=== PATIENT | male | born 1965 | race Caucasian/White ===

== ENCOUNTER → 2020-08-08 15:46 | Outpatient (BNVA) | payer OTHER, SELFPAY | PROVIDERS: PCP Internal Medicine; Referring Provider Internal Medicine; Visit Provider Internal Medicine | DX: Z76.89 Persons encountering health services in other specified circumstances (principal) ==

== ENCOUNTER 2020-09-28 14:10 | Outpatient (REF) | payer OTHER, SELFPAY ==
[2020-09-28 16:39] LABS: MANUAL DIFF FLAG NO
[2020-09-28 16:41] LABS: Basophils Percent Auto 0.8 % (0-2); Eosinophils Absolute Auto 0.1 X10*3/uL (0.0-0.4); Eosinophils Percent Auto 2.2 % (0-4); Hematocrit 47.8 % (42-52); Hemoglobin 16.7 g/dl (14.0-18.0); Imm Gran Abs Auto 0.03 X10*3/uL (0.00-0.03); Imm Gran Pct Auto 0.6 % (0.0-0.4); Lymphocytes Absolute Auto 1.9 X10*3/uL (1.2-4.9); Mean Corpuscular HGB Conc 34.9 g/dl (31.0-36.0); Mean Corpuscular Hemoglobin 33.9 pg (27.0-33.0); Mean Corpuscular Volume 97.2 fL (80-98); Monocytes Absolute Auto 0.6 X10*3/uL (0.1-1.2); Monocytes Percent Auto 11.7 % (2-11); Neutrophils Absolute Auto 2.4 X10*3/uL (2.0-8.3); Neutrophils Percent Auto 47.7 % (45-73); Platelet Count 156 X10*3/uL (160-400); Red Blood Count 4.92 X10*6/uL (4.60-5.80); Red Cell Distribution Width 12.6 % (11.0-16.0); White Blood Count 5.1 X10*3/uL (4.8-10.8)
[2020-09-28 17:07] LABS: Anion Gap 15 (12-20); Blood Urea Nitrogen 8 mg/dL (9-16); Carbon Dioxide 21 mmol/L (22-29); Chloride 105 mmol/L (96-108); Estimated Glomerular Filt Rate > 60; Glucose Random 81 mg/dL (60-115); Potassium 4.4 mmol/l (3.3-5.1); Sodium 137 mmol/L (135-145)
[2020-09-28 17:21] LABS: Alanine Aminotransferase 192 U/L (0-40); Albumin Level 4.5 g/dL (3.5-5.0); Alkaline Phosphatase 97 U/L (39-117); Anion Gap 17 (12-20); Aspartate Amino Transferase 135 U/L (5-37); Bilirubin Total 0.5 mg/dL (0.0-1.0); Blood Urea Nitrogen 8 mg/dL (9-16); Calcium 10.2 mg/dL (8.4-10.2); Carbon Dioxide 21 mmol/L (22-29); Chloride 106 mmol/L (96-108); Estimated Glomerular Filt Rate > 60; Glucose Random 83 mg/dL (60-115); Potassium 4.5 mmol/l (3.3-5.1); Sodium 139 mmol/L (135-145); Total Protein 7.6 g/dL (6.5-8.0)
[2020-09-28 17:24] LABS: SARS COV2 IgG Positive (Negative)
[2020-09-28 17:50] LABS: TSH reflex Free T4 1.29 mIU/mL (0.32-4.0)
[2020-09-28 18:24] LABS: Ferritin 86 ng/mL (20-250)
== END 2020-09-28 14:11 | disposition home or self-care (01) ==
LOC: HO.HMGCLDS 14:10
PROVIDERS: PCP Internal Medicine; Visit Provider Internal Medicine Medical Oncology
DX: D46.C Myelodysplastic syndrome with isolated del(5q) chromosomal abnormality (principal); D75.1 Secondary polycythemia; F17.200 Nicotine dependence, unspecified, uncomplicated; E83.119 Hemochromatosis, unspecified; E83.52 Hypercalcemia; I10 Essential (primary) hypertension; J44.9 Chronic obstructive pulmonary disease, unspecified; R79.89 Other specified abnormal findings of blood chemistry; F10.20 Alcohol dependence, uncomplicated
CPT/HCPCS: 36415; 80048; 80053; 82728; 84443; 85025; 86769

== ENCOUNTER 2020-10-02 17:43 | Outpatient (REF) | payer OTHER, SELFPAY | END 2020-10-02 17:44 | disposition home or self-care (01) | LOC: HO.LAB 17:43 | PROVIDERS: Visit Provider Internal Medicine | DX: Z20.828 Contact with and (suspected) exposure to other viral communicable diseases (principal) | CPT/HCPCS: C9803; U0003 ==

== ENCOUNTER 2020-11-16 15:47 | Outpatient (REF) | payer BC, SELFPAY ==
--- NOTE | 2020-11-16 17:09 | PFT_ITS ---
INDICATION: COPD. SPIROMETRY: The FEV1 to FVC 71% with an FEV1 of 3.5 L, which is 101% predicted, and an FVC of 4.91 L, which is 110% predicted. The maximum voluntary ventilation 84% predicted. LUNG VOLUMES: Total lung capacity 125% predicted and residual volume 161% predicted. DIFFUSION CAPACITY: DLCO 91% predicted. COMPARISONS: None available. INTERPRETATION: There appears to be a mild obstructive ventilatory defect. Did have some partial reversibility. The patient does have evidence of small airways disease. Maximum voluntary ventilation is within normal limits. Lung volumes do demonstrate significant hyperinflation and air trapping due to the obstructive airway disease. Diffusion capacity is within normal limits. Clinical correlation warranted. Darryl Mariee MD MR/MODL / [id number]
== END 2020-11-16 15:48 | disposition home or self-care (01) ==
LOC: HO.RESP 15:47
PROVIDERS: PCP Internal Medicine; Visit Provider Internal Medicine
DX: J44.9 Chronic obstructive pulmonary disease, unspecified (principal); F17.200 Nicotine dependence, unspecified, uncomplicated
CPT/HCPCS: 94060; 94727; 94729

== ENCOUNTER → 2020-12-11 12:45 | Outpatient (BNV) | payer BC, SELFPAY | PROVIDERS: Visit Provider Internal Medicine Medical Oncology | DX: D75.1 Secondary polycythemia (principal); R79.0 Abnormal level of blood mineral | CPT/HCPCS: 99213 ==

== ENCOUNTER 2021-01-07 10:36 | Day surgery (SDC) | payer BC, SELFPAY ==
[2021-01-07 11:01] VITALS: BMI 31.3
[2021-01-07 11:10] VITALS: BP 163/100; PULSE 88; RESP 20; TEMP 37.6; O2SAT 95
--- NOTE | 2021-01-07 11:37 | MHC.SHP ---
Pre-Procedural Eval Section B Chief Complaint: heartburn Relevant Family History (Specify if Yes): No Relevant Social History: Tobacco Use Present Medications: see Short Stay Collaborative assessment Medical History: Significant History (Alcoholism COPD (chronic obstructive pulmonary disease) Hemochromatosis Hypertension, essential LFT elevation Polycythemia Serum calcium elevated Smoker) History of Previous Operations: Relevant previous surgery/procedure and date(s) (hydrocele) Allergies: Allergies Allergy/AdvReac Type Severity Reaction Status Date / Time chlorthalidone AdvReac Severe stomach Verified 01/07/21 11:19 upset Review of Systems Sugical H&P ROS: Negative: Constitution, Cardiovascular, Respiratory, Neurological, Psychiatric, Hem-Onc, Allergic/Immunologic, Gastrointestinal, Genitourinary, Musculoskeletal, Integumentary, Endocrine and Eyes/Ears/Nose/Throat Exam Surgical H&P Exam: Normal: HEENT, Normal: Heart, Normal: Lungs, Normal: Extremities, Normal: Abdomen, Normal: Skin and Normal: Neurological Plan Diagnosis/Plan: Unchanged I have reviewed the history and physical and performed a pertinent physical examination on my patient. No changes have occurred unless specified.
--- NOTE | 2021-01-07 11:40 | P.CONAN_ITS ---
[facility] Past Medical History Medical History Alcoholism COPD (chronic obstructive pulmonary disease) Hemochromatosis Hypertension, essential LFT elevation Polycythemia Serum calcium elevated Smoker Family History Family History Father Stroke Mother CVD (cardiovascular disease) Paternal Aunt Smoker Cancer Sister No problems noted. Sister No problems noted. Sister No problems noted. Sister No problems noted. Son Asthma Surgical History Surgical History History of hydrocele Social History Social History (Updated 12/11/20 @ 15:34 by Josephine Richards) Alcohol intake: current Alcohol intake frequency: 3 or more drinks per day Alcohol type: beer Smoking Status: Current every day smoker Packs Per Day: 1 Years Smoked: 37 YEARS Substance Use Type: Marijuana Meds Allergies Allergy/AdvReac Type Severity Reaction Status Date / Time chlorthalidone AdvReac Severe stomach Verified 01/07/21 11:19 upset Home Medications Medication Instructions Recorded Confirmed Last Taken Type diclofenac sodium 1 % topical gel 2 g TOPICAL TID 08/08/20 12/11/20 Unknown History
[2021-01-07] MEDS: Lactated Ringers 1,000 ML 100 ML IVCONT (11:43)
--- NOTE | 2021-01-07 11:50 | PM.OP ---
Brief Operative Note Date of Service: 01/07/21 Pre-op diagnosis: altered bowel habit, hx of high Ca and HGB Post-op diagnosis: same Procedure: see op note Surgeon: Radha Velásquez MD Anesthesia: MAC Estimated blood loss (mL): 0 Condition: stable Disposition: PACU
--- NOTE | 2021-01-07 11:51 | W.PM.OPN ---
Operative Note Operative Note Date of Service: 01/07/21 Narrative: Operative Information Procedure Description: EGD, Colonoscopy FLEXIBLE TRANSORAL UPPER GASTROINTESTINAL ENDOSCOPY AND COLONOSCOPY PROCEDURE NOTE UPPER ENDOSCOPY Consent: Indications for the procedure and potential complications of bleeding, perforation, reaction to medications and missed diagnosis were discussed with the patient and informed consent was obtained. Instrument: Olympus GIF H 190 J mid size upper endoscope Monitoring: Vital signs and clinical assessment, continuous EKG monitoring, Pulse oximetry, Carbon Dioxide monitoring and blood pressure monitoring were done throughout the procedure. Procedure: The patient was placed in the left lateral decubitis position and pre-procedure medications were administered and a bite block was placed. The endoscope was inserted into the mouth and advanced under direct vision to the third part of duodenum. A careful inspection was made as the upper endoscope was withdrawn including a retroflexed examination of the proximal stomach; Findings and interventions are described below. Findings: Larynx:normal Esophagus: GE junction at 36 cm, diaphragm hiatus at 38 cm, consistent with 2 cm sliding hiatal hernia, esophagitis noted, LA grade A with few islands of salmon pink mucosa, bx taken to r/o brownlee/s Stomach: Patchy granular mucosa with erythema. Biopsies were obtained. Grade 2 flap valve on retroflexed examination of the cardia. Duodenum: Dilated duodenal bulb with patchy erythema and edema to the second part of duodenum, bx taken Intervention: Biopsies as noted above COLONOSCOPY Instrument: Olympus variable stiffness pediatric scope 190L Colonoscopy Monitoring: Vital signs and clinical assessment, continuous EKG monitoring, Pulse oximetry, Carbon Dioxide monitoring and blood pressure monitoring were done throughout the procedure. Colon withdrawal time was 33 minutes. Procedure: The patient was placed in the left lateral decubitis position and pre-procedure medications were administered. After a digital rectal examination of the ano-rectum, the video colonoscope was inserted into the rectum and advanced through the colon to the cecum. The colonoscope was slowly withdrawn in a retrograde panoramic fashion and the colon mucosa was carefully examined including a retroflexed view of the rectum. Findings and interventions are described below. Procedure Difficulty:moderate due to looping Findings: [place] diverticulosis- moderate severity Terminal Ileum-not intubated Cecum: X shaped adenomatous lesion measuring about 12 mm in length injected with ORISE and then removed piece meal with cold snare Ascending Colon: 10-12 mm sessile polyp removed with cold snare Transverse Colon -normal Descending Colon:normal Sigmoid Colon: 12-15 mm sessile polyp removed with cold snare after injected with 1 cc epinephrine. second more distal pedunculated polyp lesion measuring 15 mm removed with cold snare and then clipped x 2 after injectd with 1 cc epinephrine. Another sessile polyp was close by to this and measured 10 mm removed with cold snare. Rectum: Retroflexion with small internal hemorrhoids, grade I. x 3 rectal polyps noted, sessile measuring from 6-12 mm in size, removed with cold snare. Anorectum - normal Colon preparation: [place] Bowel Preparation Scale Right colon; 2 Transverse colon: 2 Left colon; 2 (0 = Unprepared colon segment with mucosa not seen due to solid stool that cannot be cleared. 1 = Portion of mucosa of the colon segment seen, but other areas of the colon segment not well seen due to staining, residual stool and/or opaque liquid. 2 = Minor amount of residual staining, small fragments of stool and/or opaque liquid, but mucosa of colon segment seen well. 3 = Entire mucosa of colon segment seen well with no residual staining, small fragments of stool or opaque liquid) Impression and Post Procedure Diagnosis: Endoscopy Findings: gastritis duodenitis esophagitis hiatal hernia Colonoscopy Findings: polyps internal hemorrhoids diverticular disease Plan: Await Pathology results Repeat Colonoscopy in 6-12 months or earlier if clinically indicated High fiber diet leaflet avoid straining at stool, epsom salts and sitz bath, anusol supps or cream as needed avoid nsaid for 5 days, if profuse bleeding needs to come to ED Above findings were reviewed with the patient and relevant handouts were provided if indicated.
[2021-01-07 12:52] VITALS: BP 124/84; PULSE 97; RESP 16; TEMP 37.1; O2SAT 99
[2021-01-07 13:06] VITALS: BP 142/91; PULSE 88; RESP 17; TEMP 37.1; O2SAT 97
--- NOTE | 2021-01-07 17:29 | HO.ANESPROP2 ---
[facility] Active Problems Active Problems: All Active Problems Alcoholism (Acute) LFT elevation (Acute) Hypertension, essential (Acute) Serum calcium elevated (Acute) Hemochromatosis (Acute) Polycythemia (Acute) COPD (chronic obstructive pulmonary disease) (Acute) Smoker (Acute) Past Medical History Medical History Alcoholism COPD (chronic obstructive pulmonary disease) Hemochromatosis Hypertension, essential LFT elevation Polycythemia Serum calcium elevated Smoker Family History Family History Father Stroke Mother CVD (cardiovascular disease) Paternal Aunt Smoker Cancer Sister No problems noted. Sister No problems noted. Sister No problems noted. Sister No problems noted. Son Asthma Surgical History Surgical History History of hydrocele Social History Social History (Updated 12/11/20 @ 15:34 by Josephine Richards) Alcohol intake: current Alcohol intake frequency: 3 or more drinks per day Alcohol type: beer Smoking Status: Current every day smoker Packs Per Day: 1 Years Smoked: 37 YEARS Substance Use Type: Marijuana Meds Allergies Allergy/AdvReac Type Severity Reaction Status Date / Time chlorthalidone AdvReac Severe stomach Verified 01/07/21 11:19 upset Home Medications Medication Instructions Recorded Confirmed Last Taken Type diclofenac sodium 1 % topical gel 2 g TOPICAL TID 08/08/20 12/11/20 Unknown History Exam Exam Date and Time: January 07, 2021 1729 Height,Weight and Vital Signs: Height 5 ft 7 in Weight 90.718 kg Last Vital Signs Temp 98.8 F 01/07/21 13:06 Pulse 88 01/07/21 13:06 Resp 17 01/07/21 13:06 BP 142/91 H 01/07/21 13:06 Pulse Ox 97 01/07/21 13:06 Airway Mallampati Class: II TM Dist: >3cm Neck ROM: Full Loose/Missing/Broken Teeth: Yes Heart: RRR Lungs: CTA
== END 2021-01-07 14:00 | disposition home or self-care (01) ==
PROVIDERS: PCP Internal Medicine; Visit Provider Internal Medicine Gastroenterology
PROC: (CPT 45385; principal; 2021-01-07 12:10)
DX: R19.4 Change in bowel habit (principal); D12.0 Benign neoplasm of cecum; D12.2 Benign neoplasm of ascending colon; D12.5 Benign neoplasm of sigmoid colon; D12.8 Benign neoplasm of rectum; K57.30 Diverticulosis of large intestine without perforation or abscess without bleeding; K64.0 First degree hemorrhoids; K21.00 Gastro-esophageal reflux disease with esophagitis, without bleeding; K29.80 Duodenitis without bleeding; K29.50 Unspecified chronic gastritis without bleeding; K44.9 Diaphragmatic hernia without obstruction or gangrene; J44.9 Chronic obstructive pulmonary disease, unspecified; E83.119 Hemochromatosis, unspecified; I10 Essential (primary) hypertension; D75.1 Secondary polycythemia; R74.8 Abnormal levels of other serum enzymes; Z79.899 Other long term (current) drug therapy; Z88.8 Allergy status to other drugs, medicaments and biological substances; F10.20 Alcohol dependence, uncomplicated; F17.210 Nicotine dependence, cigarettes, uncomplicated; F12.90 Cannabis use, unspecified, uncomplicated
CPT/HCPCS: 45385; 45381; 43239; 88305; 88342; J0171

== ENCOUNTER → 2021-01-22 15:32 | Outpatient (BNVA) | payer BC, SELFPAY | PROVIDERS: PCP Internal Medicine; Visit Provider Internal Medicine Gastroenterology ==

== ENCOUNTER 2021-05-17 15:42 | Emergency (ER) | payer BC, SELFPAY ==
--- NOTE | ~2021-05-17 | XR_ITS ---
EXAMINATION: XR FINGER, RIGHT CLINICAL INFORMATION: Partial amputation right finger COMPARISON: None TECHNIQUE: Three views of the right fourth finger. FINDINGS: There is a comminuted transverse displaced fracture of the distal tuft of the fourth finger. There is evidence of trauma to the overlying soft tissues or compound fracture. There is an old healed fracture of the fifth metacarpal bone. There may be joint space narrowing at the third and fourth MCP joints. XR/XR finger RT min 2V IMPRESSION: Compound fracture of the distal tuft of the fourth finger.
[2021-05-17 16:13] VITALS: BP 146/68; PULSE 81; RESP 17; O2SAT 97; BMI 31.3
--- NOTE | 2021-05-17 18:59 | ED_ITS ---
HPI - Wound/Laceration General Chief Complaint: Wound/Laceration Stated Complaint: wound Time Seen by Provider: 05/17/21 16:14 Source: patient Mode of arrival: ambulatory Limitations: no limitations History of Present Illness HPI narrative: Patient presents to ED for injury to right 4th finger. Patient was changing transmission and finger got caught and cause laceration to tip of right 4th finger causing partial amputation to the nail bed. Patient up-to-date with tetanus Related Data Home Medications Medication Instructions Recorded Confirmed diclofenac sodium 1 % topical gel 2 g TOPICAL TID 08/08/20 12/11/20 Previous Rx's Medication Instructions Recorded sodium,potassium,mag sulfates 17.5 See Rx Instructions PO .COMPLEX 11/29/20 gram-3.13 gram-1.6 gram oral soln #354 ml amlodipine 10 mg tablet 10 mg PO DAILY #90 tab 12/17/20 tiotropium bromide 2.5 2 puff INHALATION DAILY #4 g 04/03/21 mcg/actuation mist for inhalation cephalexin 500 mg PO QID #28 cap 05/17/21 oxycodone-acetaminophen [Percocet] 1 tab PO TID PRN #9 tab 05/17/21 Allergies Allergy/AdvReac Type Severity Reaction Status Date / Time chlorthalidone AdvReac Severe stomach Verified 01/22/21 15:33 upset Review of Systems Review of Systems: Yes all other systems are reviewed and are negative Constitutional: Constitutional: Reports as per HPI, Reports no additional constitutional complaints, Reports anorexia, Reports body ache(s) and Reports chills Eyes: Eyes: Reports as per HPI and Reports no additional eye complaints ENT: Reports system reviewed and no additional complaints, except as documented and Reports as per HPI Cardiovascular: Cardiovascular: Reports as per HPI and Reports no additional cardiovascular complaints Respiratory: Respiratory: Reports as per HPI and Reports no additional respiratory complaints Gastrointestinal: Gastrointestinal: Reports as per HPI and Reports no additional gastrointestinal complaints Genitourinary: Genitourinary: Reports no additional male genitourinary complaints and Reports as per HPI Musculoskeletal: Musculoskeletal: Reports no additional musculoskeletal complaints and Reports as per HPI Comments: Right 4th finger Neurologic: Reports system reviewed and no additional complaints, except as documented and Reports as per HPI Psychiatric: Psychiatric: Reports as per HPI PMFSH Past Medical History Medical History Alcoholism COPD (chronic obstructive pulmonary disease) Hemochromatosis Hypertension, essential LFT elevation Polycythemia Serum calcium elevated Smoker Surgical History H/O colonoscopy History of esophagogastroduodenoscopy (EGD) History of hydrocele Family History Family History (Updated 04/01/21 @ 15:49 [facility] Father Stroke Mother CVD (cardiovascular disease) Paternal Aunt Smoker Cancer Son Asthma Social History Social History (Updated 01/22/21 @ 15:35 by Nettie Malcolm Moose) Household Members: Spouse, Family and Children Alcohol intake: current Alcohol intake frequency: 3 or more drinks per day Alcohol type: beer and hard liquor Cigarette Packs Per Day: 1.5 Years Smoked: 37 YEARS Substance Use Type: Marijuana Advance Directives: No Advance Directives Information Provided: Yes Physical Exam Vital Signs: Vital Signs: Last Vital Signs Pulse 81 05/17/21 16:13 Resp 17 05/17/21 16:13 BP 146/68 H 05/17/21 16:13 Pulse Ox 97 05/17/21 16:13 Body Mass Index 31.3 Const: General: cooperative, healthy appearing, comfortable, no acute distres s, well developed, alert, awake and Physically active Orientation/consciousness: patient oriented x3 HENMT: Head: Yes normal to inspection, Yes No palpable skull fracture present, Yes normocephalic and Yes atraumatic Eyes: General: appearance normal, both eyes and all related structures Neck: Neck: Yes normal visual inspection, Yes full ROM, Yes no lymphadenopathy, Yes no meningeal signs, Yes trachea midline, Yes supple and No tender Chest: Chest palpation & inspection: normal inspection of the chest and normal palpation of entire chest wall Resp: Effort & Inspection: normal respiratory effort and able to speak in complete sentences Auscultation: clear to auscultation bilaterally Cardio: Jugular venous distension: no JVD Heart sounds: S1 normal heart sound present and S2 normal heart sound present GI: Inspection: Yes normal to inspection and No abdominal wall ecchymosis Palpation (GI): Soft to palpation, not firm, nontender, no guarding and not rigid : General: No CVA tenderness and Yes no CVA tenderness Back/Spine/Pelvis: Back: no CVA tenderness, No CVA tenderness and No back te nderness Skin: General skin exam: no rashes or lesions noted and elasticity normal Neuro: General: patient oriented x3, gait normal, no meningeal signs and CN's II-XI intact bilaterally Cranial nerves: Yes CN's II-XII intact bilaterally Extrem: Other: Hand/finger images: 1. Partial amputation. through nail bed. No tendon exposure. Rest of extremity and hand negative for trauma. Radial pulse intact. Motor exam of right 4th finger intact. Psych: Appearance: grossly normal, well kempt and not disheveled Course Course Course Narrative: Patient be sent for x-ray. Reevaluation(s) Reevaluation #1: X-ray shows compound distal tuft fracture. Patient states up-to-date with tetanus. Spoke with Dr. Daley of [facility] states clean wound and closed the best of ability and follow-up with clinic. Time: 17:50 Reevaluation #2: 1% lidocaine 7 mL was used for digital block of right 4th finger. Wound was cleaned with sterile saline and Betadine iodine with washout. Partial amputation almost falling off and borders are jagged. Size 4 nylon sutures were used to close medial aspect of the DIP. Two sutures were placed. Lateral side of the DIP 2 sutures were placed also with size 4 nylon sutures. Multiple attempts were made to put absorbable suture through the nail bed but was not successful. The observable suture had to go through nail plate to bring laceration ( partial amputation) closer. One size 4 absorbalbe suture was placed. After laceration repair patient had complete range of motion of finger even at the DIP. Negative for tendon injury. Neuro exam is intact. Capillary refills intact. Patient given 1 dose of Keflex and oxycodone Time: 19:16 Discharge Plan Discharge Clinical Impression: Closed fracture of tuft of distal phalanx of finger Patient Disposition: Home, Self-Care Instructions: Finger Fracture (ED) Additional Instructions: X-ray showed distal tuft fracture. Amputation was repaired. Please follow-up with hand surgeon for re-evaluation and possible cosmetic surgery. Return to the ED immediately for swelling, redness, pus discharge, foul odor, severe pain, finger black discoloration, or any other concerning symptoms. Prescriptions: New cephalexin 500 mg capsule 500 mg PO QID Qty: 28 RF: 0 oxycodone-acetaminophen [Percocet] 5-325 mg tablet 1 tab PO TID PRN (Reason: pain.) Qty: 9 RF: 0 No Action Suprep Bowel Prep Kit 17.5-3.13-1.6 gram recon soln See Rx Instructions PO .COMPLEX Qty: 354 RF: 0 amlodipine 10 mg tablet 10 mg PO DAILY Qty: 90 RF: 3 Spiriva Respimat 2.5 mcg/actuation mist 2 puff inhalation DAILY Qty: 4 RF: 3 diclofenac sodium 1 % gel 2 g topical TID RF: 0 Referrals: Lilly Thomas MD [Physician] - 2 days (Partial amputation with distal tuft fracture) Stand Alone Forms: Work/School Release Interventions: ED Discharge Assessment Last Done: 05/17/21 19:33 Discharge Date/Time: 05/17/21 19:39 Print Language: Green[place]ic
[2021-05-17] MEDS: Lidocaine HCl 1 % MPF 5 ML VIAL SUBCUT (19:05)
[2021-05-17] MEDS: Lidocaine HCl 1 % MPF 5 ML VIAL INFILTRATI (19:05)
[2021-05-17] MEDS: cephALEXin 500 MG CAPSULE PO (19:14)
[2021-05-17] MEDS: oxyCODONE HCl Immed Release 5 MG TABLET PO (19:14)
== END 2021-05-17 19:39 | disposition home or self-care (01) ==
PROVIDERS: Emergency Provider Emergency Medicine; PCP Internal Medicine
DX: S68.124A Partial traumatic metacarpophalangeal amputation of right ring finger, initial encounter (principal); M79.644 Pain in right finger(s); W26.9XXA Contact with unspecified sharp object(s), initial encounter; Y93.9 Activity, unspecified; Y92.9 Unspecified place or not applicable; Y99.9 Unspecified external cause status; F17.210 Nicotine dependence, cigarettes, uncomplicated; Z79.899 Other long term (current) drug therapy; Z71.6 Tobacco abuse counseling
CPT/HCPCS: 12041; 73140; 96372; 99284

== ENCOUNTER → 2021-05-22 12:41 | Outpatient (BNVA) | payer BC, SELFPAY | PROVIDERS: Visit Provider Physician Assistant ==

== ENCOUNTER → 2021-05-29 13:02 | Outpatient (BNVA) | payer BC, SELFPAY | PROVIDERS: Visit Provider Physician Assistant ==

== ENCOUNTER → 2021-06-12 14:33 | Outpatient (BNVA) | payer BC, SELFPAY | PROVIDERS: Visit Provider Physician Assistant ==

== ENCOUNTER → 2021-07-03 13:57 | Outpatient (BNVA) | payer BC, SELFPAY | PROVIDERS: Visit Provider Physician Assistant ==

== ENCOUNTER 2021-10-21 11:23 | Inpatient (IN) | payer BC, SELFPAY ==
--- NOTE | 2021-10-21 | ECG_ITS ---
Test Reason : ABDOMINAL PAIN Blood Pressure : / mmHG Vent. Rate : 120 BPM Atrial Rate : 120 BPM P-R Int : 134 ms QRS Dur : 076 ms QT Int : 328 ms P-R-T Axes : 066 -32 046 degrees QTc Int : 463 ms Sinus tachycardia with Premature supraventricular complexes Left axis deviation Septal infarct , age undetermined Abnormal ECG No previous ECGs available Referred By: Anabela Pascual Electronically Signed By:Fidel Haider
--- NOTE | ~2021-10-21 | CT_ITS ---
EXAMINATION: CT abdomen pelvis w con CLINICAL INFORMATION: Reason for Exam abdominal pain ETOH use, vomiting COMPARISON: No prior CT available for comparison. TECHNIQUE: Multidetector volumetric imaging was performed from the superior aspect of the liver through the pubic symphysis 85 mL of Omnipaque 350 injected Sagittal and coronal reformatted images were obtained on the technologist's workstation. This CT examination was performed using dose optimization techniques as appropriate, variously including the following: *Automated exposure control *Adjustment of mA and/or kV according to patient size (this includes techniques or standardized protocols for targeted exams where dose is matched to indication/reason for exam; i.e. extremities or head) *Use of iterative reconstruction technique DLP: 508 mGy-cm FINDINGS: LOWER THORAX: Included lung bases are clear. HEPATOBILIARY: Diffusely hypodense liver suggesting hepatic steatosis. Hypodense area in the liver adjacent to the gallbladder, the location is common for focal fat deposition. GALLBLADDER: Gallbladder unremarkable. SPLEEN: Spleen is normal in size. PANCREAS: There is fluid and fat stranding surrounding the pancreas, this is highly suggestive of acute pancreatitis. There is no CT evidence of focal necrosis aneurysm or other complication at this time. Fat stranding and inflammation involve the peritoneum, fluid reaching down to the dependent portion of the pelvis. STOMACH AND GASTROINTESTINAL TRACT: There is circumferential wall thickening of the gastric antrum and duodenal sweep which could be sequela of the adjacent pancreatitis. There is no bowel distention or thickening. No CT evidence of appendicitis. There is diverticulosis without evidence of acute diverticulitis. ADRENALS: No adrenal nodules. KIDNEYS/URETERS: No hydronephrosis, stones or solid mass lesions. URINARY BLADDER: Partially decompressed. PELVIC VISCERA: Unremarkable PERITONEUM: There is small amount free fluid in the abdomen ascites. LYMPH NODES: No lymphadenopathy. VASCULAR:Abdominal aorta normal in size, no aneurysm found. BONES, ABDOMINAL WALL AND SOFT TISSUES: Age-appropriate changes of the spine and skeletal system, no destructive osteolytic or osteosclerotic bone lesion found CT/CT abdomen pelvis w con IMPRESSION: *Diffuse peripancreatic fat stranding and fluid consistent with ACUTE PANCREATITIS please correlate with patient's laboratory data and amylase lipase. *Fluid and fat stranding/ascites along the gutters down and into the dependent portion of the pelvis. *There is mild wall thickening of the gastric antrum and duodenum, most likely secondary to the adjacent inflammation due to pancreatitis. *Diffuse hypodense liver suggesting hepatic steatosis. *Diverticulosis coli without evidence of acute diverticulitis. (Referring physician staff is being called, to be alerted of the above findings and recommendations.) CM
[2021-10-21 13:33] VITALS: BP 166/99; PULSE 116; RESP 22; TEMP 36.9; O2SAT 96; BMI 31.4
--- NOTE | 2021-10-21 13:50 | ED.ABDPAIN ---
HPI - Abdominal Pain General Chief Complaint: Abdominal Pain Stated Complaint: Chills Stomach Cramps Time Seen by Provider: 10/21/21 13:50 Source: patient Mode of arrival: ambulatory Limitations: no limitations History of Present Illness MD elicited complaint: abdominal pain Pertinent past history: none Onset (ago): day(s) (yesterday) Pain Consistency: constant Location: epigastric Severity: severe Quality: stabbing Radiation: back Migration to: no migration Exacerbating factors: eating and movement Relieving factors: nothing Context: other (drank heavily over the holiday) Associated symptoms: nausea, vomiting and chills Related Data Home Medications Medication Instructions Recorded Confirmed diclofenac sodium 1 % topical gel 2 g TOPICAL QID PRN 10/21/21 10/21/21 Previous Rx's Medication Instructions Recorded amlodipine 10 mg tablet 10 mg PO DAILY #90 tab 12/17/20 tiotropium bromide 2.5 2 puff INHALATION DAILY #4 g 04/03/21 mcg/actuation mist for inhalation (Spiriva Respimat) Allergies Allergy/AdvReac Type Severity Reaction Status Date / Time chlorthalidone AdvReac Severe stomach Verified 05/29/21 13:12 upset Review of Systems Review of Systems Constitutional : No Weight loss, No Fever, pos Chills ENT/Mouth : No sore throat, No Rhinorrhea Eyes: No Swelling, No Redness Cardiovascular : No Chest Pain, No SOB, NoEdema Respiratory : No Cough, No Sputum, No Wheezing Gastrointestinal : Positive Nausea, Positive Vomiting, no Diarrhea, positive abdominal Pain, No Hematochezia, No Melena Genitourinary : No Dysuria, No Urinary Frequency, No Hematuria, No Urgency Musculoskeletal : No joint pain, No Myalgias, No Joint Swelling Skin : No Skin Lesions, No rash Neuro : No Weakness, No Numbness, No Dizziness, No Headache Psych : No Anxiety/Panic, No Depression Heme/Lymph: No Bruising, No Lymphadenopathy Endocrine : No Polyuria, No Polydipsia All other systems reviewed and are negative. Physical Exam Vital Signs: Vital Signs: Last Vital Signs Temp 98.4 F 10/21/21 13:33 Pulse 104 H 10/21/21 14:37 Resp 20 10/21/21 14:37 BP 149/98 H 10/21/21 14:37 Pulse Ox 95 10/21/21 14:37 BMI result Body Mass Index 31.4 Appearance: Alert. Oriented X3. Moderate acute distress. Eyes: Pupils equal, round and reactive to light. ENT: Pharynx normal. Neck: Normal inspection. Neck supple. CVS: Normal heart rate and rhythm. Pulses normal. Respiratory: No respiratory distress. Breath sounds normal. Abdomen: Soft and moderate ttp in epigastric ttp no rebound Skin: Skin warm and diaphoretic. pale skin color. Extremities: No lower extremity edema. Neuro: Oriented X 3. No motor deficit. No sensory deficit. Course Course Course Narrative: lactic acidosid due to ETOH abuse, dehydration, pancreatitis and not infection or severe sepsis signed out to Dr. Kent pending CT scan results and admission MDM - Abdominal Pain MDM Narrative Medical decision making narrative: 55 yo male with COPD, alcoholism drank heavily over the weekend now c/o epigastric pain n/v has sweats at this time c/o epigastric pain radiating to back after drinking heavily - at this time labs, IVF, CT scan, IV morphine for pain, IV ativan dispo per results and findings. Lab Data Result diagrams: 10/21/21 14:07 10/21/21 14:07 Labs: Lab Results 10/21/21 10/21/21 10/21/21 Range/Units 14:07 14:07 14:07 WBC 10.4 (4.8-10.8) X10*3/uL RBC 4.96 (4.60-5.80) X10*6/uL Hgb 17.4 (14.0-18.0) g/dl Hct 49.2 (42.0-52.0) % MCV 99.2 H (80.0-98.0) fL MCH 35.1 H (27.0-33.0) pg MCHC 35.4 (31.0-36.0) g/dl RDW 12.8 (11.0-16.0) % Plt Count 189 (160-400) X10*3/uL MPV 10.4 (9.4-12.4) fL Absolute Nucleated RBC 0.000 (0.0-0.012) X10*3/uL Nucleated RBC % (auto) 0.0 (0.0-0.2) /100WBC Neutrophils % (Manual) 91 H (45-73) % Band Neutrophils % 4 (3-5) % Lymphocytes % (Manual) 1 L (20-40) % Monocytes % (Manual) 4 (2-11) % Abs Neuts (Manual) 9.9 H (2.0-8.3) X10*3/uL Lymphocytes # (Manual) 0.1 L (1.2-4.9) X10*3/uL Monocytes # (Manual) 0.4 (0.1-1.2) X10*3/uL Platelet Estimate NORMAL (NORMAL) Plt Morphology Comment NORMAL RBC Morphology NORMAL Sodium 131 L (135-145) mmol/L Potassium 4.3 (3.3-5.1) mmol/L Chloride 95 L (96-108) mmol/L Carbon Dioxide 23 (22-29) mmol/L Anion Gap 17 (12-20) BUN 13 (9-16) mg/dL Creatinine 1.26 (0.5-1.4) mg/dL Estim Creat Clear Calc 72.1 Estimated GFR 60 Random Glucose 186 H D (60-115) mg/dL Lactic Acid 3.8 H* (0.5-2.0) mmol/L Calcium 11.4 H D (8.4-10.2) mg/dL Magnesium 1.7 (1.6-2.6) mg/dL Total Bilirubin 1.7 H (0.0-1.0) mg/dL Direct Bilirubin 0.7 H (0.0-0.5) mg/dL AST 31 (5-37) U/L ALT 59 H (0-40) U/L Alkaline Phosphatase 82 D (39-117) U/L Lactate Dehydrogenase 230 (118-273) U/L Total Protein 7.6 (6.5-8.0) g/dL Albumin 4.2 (3.5-5.0) g/dL Lipase 2023 H (8-78) U/L Ethyl Alcohol mg/dL COVID-19 (YIFAN) (Negative) COVID-19 Clin Com 10/21/21 10/21/21 Range/Units 14:07 14:07 WBC (4.8-10.8) X10*3/uL RBC (4.60-5.80) X10*6/uL Hgb (14.0-18.0) g/dl Hct (42.0-52.0) % MCV (80.0-98.0) fL MCH (27.0-33.0) pg MCHC (31.0-36.0) g/dl RDW (11.0-16.0) % Plt Count (160-400) X10*3/uL MPV (9.4-12.4) fL Absolute Nucleated RBC (0.0-0.012) X10*3/uL Nucleated RBC % (auto) (0.0-0.2) /100WBC Neutrophils % (Manual) (45-73) % Band Neutrophils % (3-5) % Lymphocytes % (Manual) (20-40) % Monocytes % (Manual) (2-11) % Abs Neuts (Manual) (2.0-8.3) X10*3/uL Lymphocytes # (Manual) (1.2-4.9) X10*3/uL Monocytes # (Manual) (0.1-1.2) X10*3/uL Platelet Estimate (NORMAL) Plt Morphology Comment RBC Morphology Sodium (135-145) mmol/L Potassium (3.3-5.1) mmol/L Chloride (96-108) mmol/L Carbon Dioxide (22-29) mmol/L Anion Gap (12-20) BUN (9-16) mg/dL Creatinine (0.5-1.4) mg/dL Estim Creat Clear Calc Estimated GFR Random Glucose (60-115) mg/dL Lactic Acid (0.5-2.0) mmol/L Calcium (8.4-10.2) mg/dL Magnesium (1.6-2.6) mg/dL Total Bilirubin (0.0-1.0) mg/dL Direct Bilirubin (0.0-0.5) mg/dL AST (5-37) U/L ALT (0-40) U/L Alkaline Phosphatase (39-117) U/L Lactate Dehydrogenase (118-273) U/L Total Protein (6.5-8.0) g/dL Albumin (3.5-5.0) g/dL Lipase (8-78) U/L Ethyl Alcohol < 10 mg/dL COVID-19 (YIFAN) Negative (Negative) COVID-19 Clin Com See Note ECG Data Attestation: I personally reviewed and interpreted this ECG as follows: ECG interpretation date: 10/21/21 ECG interpretation time: 15:25 Interpretation: Rate: 120 Rhythm: sinus tachycardia [place]: left Normal P waves. Normal LUCILA. Normal QRS complex. ST T wave : nonspecific, t waves tall anterior leads qTC: prolonged prior studies: no acute ischemia The study has been interpreted contemporaneously by me. . Critical Care Time Critical Care Time Critical Care Time: Yes Total Critical Care Time: 45 Attestation: repeat IV pain medications - morphine/dilaudid, 2L of IVF I attest to this time spent taking care of the patient Discharge Plan Discharge Clinical Impression: Alcoholism, Acidosis, lactic Abdominal pain Qualifiers: Abdominal location: epigastric Qualified Code(s): R10.13 - Epigastric pain Acute pancreatitis Qualifiers: Pancreatitis type: alcohol induced Acute pancreatitis complication: unspecified Qualified Code(s): K85.20 - Alcohol induced acute pancreatitis without necrosis or infection Patient Disposition: Admitted As Inpatient [facility] Past Medical History Medical History Alcoholism COPD (chronic obstructive pulmonary disease) Hemochromatosis Hypertension, essential LFT elevation Polycythemia Serum calcium elevated Smoker Surgical History H/O colonoscopy History of esophagogastroduodenoscopy (EGD) History of hydrocele Family History Family History Father Stroke Mother CVD (cardiovascular disease) Paternal Aunt Smoker Cancer Son Asthma Social History Social History Household Members: Spouse, Family and Children Alcohol intake: current Alcohol intake frequency: 3 or more drinks per day Alcohol type: beer and hard liquor Cigarette Packs Per Day: 1.5 Years Smoked: 37 YEARS Substance Use Type: Marijuana Advance Directives: No Advance Directives Information Provided: Yes Current occupational status: unemployed and disabled 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
[2021-10-21 14:19] LABS: Baso%MD 0.4 %; Eos%MD 0.2 %; Hematocrit 49.2 % (42.0-52.0); Hemoglobin 17.4 g/dl (14.0-18.0); IG%MD 0.3 %; Lymph%MD 4.9 %; Mean Corpuscular HGB Conc 35.4 g/dl (31.0-36.0); Mean Corpuscular Hemoglobin 35.1 pg (27.0-33.0); Mean Corpuscular Volume 99.2 fL (80.0-98.0); Mean Platelet Volume 10.4 fL (9.4-12.4); Mono%MD 8.8 %; Neut%MD 85.4 %; Platelet Count 189 X10*3/uL (160-400); Red Blood Count 4.96 X10*6/uL (4.60-5.80); Red Cell Distribution Width 12.8 % (11.0-16.0); White Blood Count 10.4 X10*3/uL (4.8-10.8)
[2021-10-21] MEDS: ondansetron HCL 4 MG/2 ML VIAL IVPUSH (14:27)
[2021-10-21] MEDS: LORazepam 2 MG/ML VIAL 1 MG IVPUSH (14:27)
[2021-10-21] MEDS: Thiamine HCL 100 MG in 0.9 % Sodium Chloride 100 ML 202 MG IV (14:27)
[2021-10-21] MEDS: Morphine Sulfate 4 MG/ML CARTRIDGE IVPUSH (14:28)
[2021-10-21 14:31] LABS: Ethanol < 10 mg/dL
[2021-10-21 14:32] LABS: Lactic Acid 3.8 mmol/L (0.5-2.0)
[2021-10-21 14:33] LABS: COVID-19 Test Negative (Negative)
[2021-10-21] MEDS: Lactated Ringers 1,000 ML 999 ML IV (14:34)
[2021-10-21 14:35] VITALS: BP 169/105; PULSE 103; RESP 22; O2SAT 96
--- NOTE | 2021-10-21 14:35 | PC.NURSE ---
Pt received: AOX4 with severe upper abd pain, N/V but denies diarrhea since 0800 this morning. Pt states he is a daily 6-pack drinker of alcohol. Sinus tachy and dimished and is daily 0.5 pack of ciggarettes. Pt soft but very tender.
[2021-10-21 14:37] VITALS: BP 149/98; PULSE 104; RESP 20; O2SAT 95
[2021-10-21 14:38] LABS: Alanine Aminotransferase 59 U/L (0-40); Albumin Level 4.2 g/dL (3.5-5.0); Alkaline Phosphatase 82 U/L (39-117); Anion Gap 17 (12-20); Aspartate Amino Transferase 31 U/L (5-37); Bilirubin Direct 0.7 mg/dL (0.0-0.5); Bilirubin Total 1.7 mg/dL (0.0-1.0); Blood Urea Nitrogen 13 mg/dL (9-16); Carbon Dioxide 23 mmol/L (22-29); Chloride 95 mmol/L (96-108); Creatinine Clr Calc Pharmacy 72.1; Estimated Glomerular Filt Rate 60; Glucose Random 186 mg/dL (60-115); Lactate Dehydrogenase 230 U/L (118-273); Magnesium 1.7 mg/dL (1.6-2.6); Potassium 4.3 mmol/L (3.3-5.1); Sodium 131 mmol/L (135-145); Total Protein 7.6 g/dL (6.5-8.0)
[2021-10-21] MEDS: 0.9 % Sodium Chloride 1,000 ML 999 ML IV (14:44)
[2021-10-21 14:46] LABS: Band Neutrophils Percent 4 % (3-5); Lymphocytes Absolute Manual 0.1 X10*3/uL (1.2-4.9); Lymphocytes Percent Manual 1 % (20-40); Monocytes Absolute Manual 0.4 X10*3/uL (0.1-1.2); Monocytes Percent Manual 4 % (2-11); Neutrophils Absolute Manual 9.9 X10*3/uL (2.0-8.3); Neutrophils Percent Manual 91 % (45-73); Platelet Estimate NORMAL (NORMAL); Platelet Morphology Comment NORMAL; RBC Morphology NORMAL
[2021-10-21 14:59] LABS: Lipase 2023 U/L (8-78)
[2021-10-21] MEDS: Folic Acid 1 MG in 0.9 % Sodium Chloride 50 ML 100.4 MG IV (14:59)
[2021-10-21 15:06] LABS: Calcium 11.4 mg/dL (8.4-10.2)
[2021-10-21] MEDS: iohexoL 350 MG/ML 100 ML INFUS..BTL IV (15:19)
[2021-10-21] MEDS: HYDROmorphone HCl 1 MG/ML SYRINGE IVPUSH (15:38)
--- NOTE | 2021-10-21 15:40 | PHA.MEDREC ---
Pharmacy Consult ? Medication Reconciliation Pharmacy has completed the medication reconciliation. Patient reports adherence only to Spiriva daily
[2021-10-21 16:15] LABS: Reflex Lactate? Lactic Acid Added
[2021-10-21] MEDS: Lactated Ringers 1,000 ML 100 ML IVCONT (16:27)
[2021-10-21 16:39] LABS: Appearance Urine CLEAR; Color Urine DK YELLOW; Glucose Urine UA 100 MG/DL (NEG); Leukocyte Esterase Urine NEG (NEG); Nitrite Urine POS (NEG); PH 6.5 (5.0-8.0); UACC Culture Trigger YES; Urine Blood NEG (NEG); Urine Ketones 40 MG/DL (NEG); Urine Protein 2+ MG/DL (NEG-TRACE)
[2021-10-21 16:45] LABS: Bacteria Urine TRACE /LPF; RBC Urine 0 /HPF (0); Squamous Epithelial Cell Urine 2+ /LPF; UACC CULT YES; WBC Urine 0-2 /HPF (0-4)
--- NOTE | 2021-10-21 16:50 | PC.NURSE ---
Pt update status given to pt's Maia: [phone]
[2021-10-21 16:51] LABS: ~Lactic Acid-LAB USE ONLY 1.9 mmol/L (0.5-2.0)
--- NOTE | 2021-10-21 16:59 | P.HPHOSP_ITS ---
History of Present Illness Date of Service: 10/21/21 Chief Complaint: abd pain 55M Complaining of 1-2 days of epigastric abdominal pain. Pain is radiating to back. associated with loss of appetite, nausea, 3 episodes of vomiting food contents. Patient drinks alcohol daily, last drink about 24 hours prior to presentation. Denies chest pain, shortness of breath, fever. In ED CT abdomen consistent with acute pancreatitis. Review of Systems Review of Systems: Constitutional: Denies fever, denies Chills Eyes: denies blurry vision ENT: denies sore throat CVS: denies chest pain Respiratory: Denies dyspnea GI: abdominal pain : denies dysuria MSK: denies neck pain Skin: denies rash Neuro: denies specific motor weakness Psych: denies suicidal ideation Endocrine: denies heat/cold intolerance Hematologic: denies easy bleeding Allergy: denies hives [facility] Medical History Alcoholism COPD (chronic obstructive pulmonary disease) Hemochromatosis Hypertension, essential LFT elevation Polycythemia Serum calcium elevated Smoker Family History Father Stroke Mother CVD (cardiovascular disease) Paternal Aunt Smoker Cancer Son Asthma Surgical History H/O colonoscopy History of esophagogastroduodenoscopy (EGD) History of hydrocele Social History Household Members: Spouse, Family and Children Alcohol intake: current Alcohol intake frequency: 3 or more drinks per day Alcohol type: beer and hard liquor Cigarette Packs Per Day: 1.5 Years Smoked: 37 YEARS Substance Use Type: Marijuana Advance Directives: No Advance Directives Information Provided: Yes Current occupational status: unemployed and disabled 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 Allergies Allergy/AdvReac Type Severity Reaction Status Date / Time chlorthalidone AdvReac Severe stomach Verified 05/29/21 13:12 upset Active Medications: Current Medications Amlodipine Besylate (Amlodipine Besylate 10 Mg Tablet) 10 mg PO DAILY LEI; Protocol Hydromorphone HCl (Hydromorphone Hcl 1 Mg/Ml Syringe) 1 mg IVPUSH Q4H PRN; Protocol PRN Reason: moderate pain Lactated Ringer's (Lr) 1,000 mls @ 150 mls/hr IVCONT .[id number] [facility] Last Admin: 10/21/21 16:27 Dose: 100 mls/hr Documented by: Pharmacy Consult (Consult Rx Perform Med Rec) 1 each MISCELLANE ONCE PRN PRN Reason: Consult order Pharmacy Consult (Consult Rx Etoh Phenob Dosing) 1 each MISCELLANE ONCE ONE; Protocol Stop: 10/21/21 16:58 Home Medications Medication Instructions Recorded Confirmed Last Taken Type diclofenac sodium 1 % topical gel 2 g TOPICAL QID PRN 10/21/21 10/21/21 Unknown History Physical Exam Vital Signs and Narrative: Vital Signs: Last Vital Signs Temp 98.4 F 10/21/21 13:33 Pulse 104 H 10/21/21 14:37 Resp 20 10/21/21 14:37 BP 149/98 H 10/21/21 14:37 Pulse Ox 95 10/21/21 14:37 BMI result Body Mass Index 31.4 General: no acute distress, dissheveled HEENT: atraumatic Neck: normal to visual inspection CVS: S1, S2, RRR Resp: CTA bilateral Chest: non tender GI: soft, epigastrum tender, non distended : no CVA tenderness Skin: no rashes Extremities: no edema Neuro: Oriented X3, grossly intact, tremor Psych: cooperative Results Labs CBC and Chem 7: 10/21/21 14:07 10/21/21 14:07 Labs: Laboratory Results - last 24 hr 10/21/21 10/21/21 10/21/21 14:07 14:07 14:07 MCV 99.2 H MCH 35.1 H MCHC 35.4 RDW 12.8 Plt Count 189 MPV 10.4 Absolute Nucleated RBC 0.000 Nucleated RBC % (auto) 0.0 Neutrophils % (Manual) 91 H Band Neutrophils % 4 Lymphocytes % (Manual) 1 L Monocytes % (Manual) 4 Abs Neuts (Manual) 9.9 H Lymphocytes # (Manual) 0.1 L Monocytes # (Manual) 0.4 Platelet Estimate NORMAL Plt Morphology Comment NORMAL RBC Morphology NORMAL Anion Gap 17 Estim Creat Clear Calc 72.1 Estimated GFR 60 Random Glucose 186 H D Lactic Acid 3.8 H* Lactic Acid F/U @ 2Hr Calcium 11.4 H D Magnesium 1.7 Total Bilirubin 1.7 H Direct Bilirubin 0.7 H AST 31 ALT 59 H Alkaline Phosphatase 82 D Lactate Dehydrogenase 230 Total Protein 7.6 Albumin 4.2 Lipase 2023 H Urine Color Urine Appearance Urine pH Ur Specific [place] Urine Protein Urine Glucose (UA) Urine Ketones Urine Blood Urine Nitrite Ur Leukocyte Esterase Urine RBC Urine WBC Ur Squamous Epith Cells Urine Bacteria Ethyl Alcohol COVID-19 (YIFAN) COVID-19 [employer] Com 10/21/21 10/21/21 10/21/21 14:07 14:07 16:29 MCV MCH MCHC RDW Plt Count MPV Absolute Nucleated RBC Nucleated RBC % (auto) Neutrophils % (Manual) Band Neutrophils % Lymphocytes % (Manual) Monocytes % (Manual) Abs Neuts (Manual) Lymphocytes # (Manual) Monocytes # (Manual) Platelet Estimate Plt Morphology Comment RBC Morphology Anion Gap Estim Creat Clear Calc Estimated GFR Random Glucose Lactic Acid Lactic Acid F/U @ 2Hr Calcium Magnesium Total Bilirubin Direct Bilirubin AST ALT Alkaline Phosphatase Lactate Dehydrogenase Total Protein Albumin Lipase Urine Color DK YELLOW Urine Appearance CLEAR Urine pH 6.5 Ur Specific [place] 1.010 Urine Protein 2+ H Urine Glucose (UA) 100 H Urine Ketones 40 Urine Blood NEG Urine Nitrite POS H Ur Leukocyte Esterase NEG Urine RBC 0 Urine WBC 0-2 Ur Squamous Epith Cells 2+ Urine Bacteria TRACE Ethyl Alcohol < 10 COVID-19 (YIFAN) Negative COVID-19 [employer] Com See Note 10/21/21 16:32 MCV MCH MCHC RDW Plt Count MPV Absolute Nucleated RBC Nucleated RBC % (auto) Neutrophils % (Manual) Band Neutrophils % Lymphocytes % (Manual) Monocytes % (Manual) Abs Neuts (Manual) Lymphocytes # (Manual) Monocytes # (Manual) Platelet Estimate Plt Morphology Comment RBC Morphology Anion Gap Estim Creat Clear Calc Estimated GFR Random Glucose Lactic Acid Lactic Acid F/U @ 2Hr 1.9 Calcium Magnesium Total Bilirubin Direct Bilirubin AST ALT Alkaline Phosphatase Lactate Dehydrogenase Total Protein Albumin Lipase Urine Color Urine Appearance Urine pH Ur Specific [place] Urine Protein Urine Glucose (UA) Urine Ketones Urine Blood Urine Nitrite Ur Leukocyte Esterase Urine RBC Urine WBC Ur Squamous Epith Cells Urine Bacteria Ethyl Alcohol COVID-19 (YIFAN) COVID-19 Clin Com Imaging Radiologist's Impressions: Impressions Abdomen/Pelvis CT 10/21/21 15:23 IMPRESSION: *Diffuse peripancreatic fat stranding and fluid consistent with ACUTE PANCREATITIS please correlate with patient's laboratory data and amylase lipase. *Fluid and fat stranding/ascites along the gutters down and into the dependent portion of the pelvis. *There is mild wall thickening of the gastric antrum and duodenum, most likely secondary to the adjacent inflammation due to pancreatitis. *Diffuse hypodense liver suggesting hepatic steatosis. *Diverticulosis coli without evidence of acute diverticulitis. (Referring physician staff is being called, to be alerted of the above findings and recommendations.) CM Assessment and Plan (1) Acute pancreatitis: Qualifiers: Acute pancreatitis complication: unspecified Pancreatitis type: alcohol induced Qualified Code(s): K85.20 - Alcohol induced acute pancreatitis without necrosis or infection Status: Acute 55M presented with abdominal pain Acute alcoholic pancreatitis IV fluids, pain medication, patient interested in clear liquids at this time Alcohol dependence with withdrawal and underlying steatohepatitis with element of acute hepatitis phenobarbital protocol monitor LFTs alcohol cessation hypertension amlodipine COPD inhalers as needed DVT prophylaxis Lovenox full code Quality Stroke Does the patient have a stroke diagnosis?: No VTE Prior VTE?: No VTE Risk Level:: Medical - moderate - high VTE Device Contraindication: Treatment Not Indicated VTE Drug Contraindication: N/A - Med Ordered
[2021-10-21] MEDS: PHENobarbitaL sodium 130 MG/ML VIAL 264 MG IM (18:01)
[2021-10-21] MEDS: LORazepam 2 MG/ML VIAL IVPUSH (18:01)
[2021-10-21] MEDS: Enoxaparin Sodium 40 MG/0.4 ML SYRINGE SUBCUT (18:02)
[2021-10-21] MEDS: PHENobarbitaL sodium 130 MG/ML VIAL 198 MG IM (20:45)
[2021-10-21 22:17] VITALS: BP 133/89; PULSE 98; RESP 16; TEMP 36.8; O2SAT 93
[2021-10-21] MEDS: Lactated Ringers 1,000 ML 150 ML IVCONT (23:32)
[2021-10-22] VITALS (8 sets, daily range): BP systolic 119–141; BP diastolic 68–88; PULSE 55–107; RESP 18–20; TEMP 36.3–37; O2SAT 91–98; BMI 27.3
[2021-10-22] MEDS: PHENobarbitaL sodium 130 MG/ML VIAL 198 MG IM (00:23)
[2021-10-22] MEDS: 0.9 % Sodium Chloride Flush 3 ML SYRINGE IVFLUSH ×2 (00:25→19:28)
--- NOTE | 2021-10-22 00:36 | PC.NURSE ---
I assumed care of this pt at 1900. Since that time the pt has required frequesnt redirecting and reminding to remain in bed. He has gotten himself OOB multiple times, removing IV's and getting fully dressed and walking towards the exit. While being redirected he is very agreeable and easy to redirect, however he seems to have no ability to retain the info that he is in the hospital and must remain in bed. Becuase of this a sitter has been at bedside with pt to keep him safe. Lyndon is very groggy due to phenobarb admin, he wakes to verbal stimuli at which time he is oreinted to person but not to place or time. He is COLEMAN x 4 and, when he gets OOB, is surprisingly steady on his feet. Respirations are spontaneous and non-labored, no cyanosis, room air sat's 94% or better. Skin is warm and dry.SR noted on bedside monitor, although it has been difficult to keep the monitor leads on the pt as he continually removes them. For the past hour he has not been on the ekg monitor in order to provide less stimulation and hopefully promote calm and less attempts to get OOB. The pt is goping to 4th floor and I have given nursing report to staff ting.
[2021-10-22] MEDS: Lactated Ringers 1,000 ML 150 ML IVCONT ×2 (06:19→17:36)
[2021-10-22 06:24] LABS: Mean Corpuscular Volume 98.9 fL (80.0-98.0); PLT CLUMP 1; Red Cell Distribution Width 12.9 % (11.0-16.0)
[2021-10-22 06:26] LABS: Hematocrit 44.1 % (42.0-52.0); Hemoglobin 15.5 g/dl (14.0-18.0); Mean Corpuscular HGB Conc 35.1 g/dl (31.0-36.0); Mean Corpuscular Hemoglobin 34.8 pg (27.0-33.0); Mean Platelet Volume 11.1 fL (9.4-12.4); Red Blood Count 4.46 X10*6/uL (4.60-5.80)
[2021-10-22 06:31] LABS: Platelet Count 129 X10*3/uL (160-400); White Blood Count 8.8 X10*3/uL (4.8-10.8)
[2021-10-22 06:32] LABS: Prothrombin Time 11.2 SEC (9.9-13.0)
[2021-10-22] MEDS: PHENobarbitaL 15 MG TABLET 45 MG PO ×2 (07:56→19:27)
[2021-10-22] MEDS: amLODIPine Besylate 10 MG TABLET PO (07:56)
[2021-10-22 08:45] LABS: Alanine Aminotransferase 38 U/L (0-40); Albumin Level 3.1 g/dL (3.5-5.0); Alkaline Phosphatase 60 U/L (39-117); Anion Gap 12 (12-20); Aspartate Amino Transferase 42 U/L (5-37); Bilirubin Direct 0.4 mg/dL (0.0-0.5); Bilirubin Total 0.8 mg/dL (0.0-1.0); Blood Urea Nitrogen 12 mg/dL (9-16); Calcium 9.5 mg/dL (8.4-10.2); Carbon Dioxide 23 mmol/L (22-29); Chloride 105 mmol/L (96-108); Creatinine Clr Calc Pharmacy 129.2; Estimated Glomerular Filt Rate > 60; Glucose Fasting 89 mg/dL (60-99); Magnesium 1.6 mg/dL (1.6-2.6); Potassium 3.9 mmol/L (3.3-5.1); Sodium 136 mmol/L (135-145); Total Protein 5.7 g/dL (6.5-8.0)
--- NOTE | 2021-10-22 09:33 | HO.PM.IMPN ---
Subjective Subjective Date of Service: 10/22/21 Interval History: cc: abd pain interval history: still with pain, no appetite Cardiovascular Cardiovascular: Reports no additional cardiovascular complaints Respiratory Respiratory: Reports no additional respiratory complaints Physical Exam Vital Signs: Vital Signs: Last Vital Signs Temp 97.4 F 10/22/21 07:50 Pulse 102 H 10/22/21 07:56 Resp 18 10/22/21 07:50 BP 138/88 10/22/21 07:56 Pulse Ox 97 10/22/21 07:50 BMI result Body Mass Index 27.3 General: AO X 3, no acute distress Resp: CTA bilateral, no accessory muscles used CVS: S1,S2,RRR GI: soft, epigastric tender, non distended Neuro: motor grossly intact, alert Psych: appropriate affect, appropriate insight Objective Data Active Medications Albuterol/Ipratropium (Albuterol/Iprat 2.5/0.5mg 3 Ml Ampul.Neb) 3 ml INHALE RQ4H PRN PRN Reason: sob Amlodipine Besylate (Amlodipine Besylate 10 Mg Tablet) 10 mg PO DAILY COUNTS INCLUDE 234 BEDS AT THE [facility]; Protocol Last Admin: 10/22/21 07:56 Dose: 10 mg Documented by: ROSALBA Enoxaparin Sodium (Enoxaparin Sodium 40 Mg/0.4 Ml Syringe) 40 mg SUBCUT Q24H COUNTS INCLUDE 234 BEDS AT THE [facility] Last Admin: 10/21/21 18:02 Dose: 40 mg Documented by: JUDAH Hydromorphone HCl (Hydromorphone Hcl 1 Mg/Ml Syringe) 1 mg IVPUSH Q4H PRN; Protocol PRN Reason: moderate pain Lactated Ringer's (Lr) 1,000 mls @ 150 mls/hr IVCONT .Q6H40M COUNTS INCLUDE 234 BEDS AT THE [facility] Last Infusion: 10/22/21 07:53 Dose: 0 mls/hr Documented by: ROSALBA Magnesium Sulfate (Magnesium Sulfate/H2o) 2 gm in 50 mls @ 25 mls/hr IV ONCE ONE Stop: 10/22/21 11:30 Medication (No Benzodiazepines) 1 each MISCELLANE DAILY COUNTS INCLUDE 234 BEDS AT THE [facility] Pharmacy Consult (Consult Rx Perform Med Rec) 1 each MISCELLANE ONCE PRN PRN Reason: Consult order Phenobarbital (Phenobarbital 15 Mg Tablet) 45 mg PO BID COUNTS INCLUDE 234 BEDS AT THE [facility]; Protocol Stop: 10/23/21 21:01 Last Admin: 10/22/21 07:56 Dose: 45 mg Documented by: ROSALBA Phenobarbital (Phenobarbital 30 Mg Tablet) 30 mg PO BID COUNTS INCLUDE 234 BEDS AT THE [facility]; Protocol Stop: 10/25/21 21:01 Phenobarbital (Phenobarbital 30 Mg Tablet) 30 mg PO DAILY COUNTS INCLUDE 234 BEDS AT THE [facility]; Protocol Stop: 10/29/21 09:01 Sodium Chloride (0.9 % Sodium Chloride Flush 3 Ml Syringe) 3 ml IVFLUSH QSHIFT COUNTS INCLUDE 234 BEDS AT THE [facility] Last Admin: 10/22/21 07:53 Dose: Not Given Documented by: ROSALBA Non-Admin Reason: No Access Labs CBC & Chem 7: 10/22/21 06:01 10/22/21 08:18 Labs: Laboratory Results - last 24 hr 10/21/21 10/21/21 10/21/21 14:07 14:07 14:07 MCV 99.2 H MCH 35.1 H MCHC 35.4 RDW 12.8 Plt Count 189 MPV 10.4 Absolute Nucleated RBC 0.000 Nucleated RBC % (auto) 0.0 Neutrophils % (Manual) 91 H Band Neutrophils % 4 Lymphocytes % (Manual) 1 L Monocytes % (Manual) 4 Abs Neuts (Manual) 9.9 H Lymphocytes # (Manual) 0.1 L Monocytes # (Manual) 0.4 Platelet Estimate NORMAL Plt Morphology Comment NORMAL RBC Morphology NORMAL PT INR Anion Gap 17 Estim Creat Clear Calc 72.1 Estimated GFR 60 Random Glucose 186 H D Fasting Glucose Lactic Acid 3.8 H* Lactic Acid F/U @ 2Hr Calcium 11.4 H D Magnesium 1.7 Total Bilirubin 1.7 H Direct Bilirubin 0.7 H AST 31 ALT 59 H Alkaline Phosphatase 82 D Lactate Dehydrogenase 230 Total Protein 7.6 Albumin 4.2 Lipase 2023 H Urine Color Urine Appearance Urine pH Ur Specific Branscomb Urine Protein Urine Glucose (UA) Urine Ketones Urine Blood Urine Nitrite Ur Leukocyte Esterase Urine RBC Urine WBC Ur Squamous Epith Cells Urine Bacteria Ethyl Alcohol COVID-19 (YIFAN) COVID-19 Clin Com 10/21/21 10/21/21 10/21/21 14:07 14:07 16:29 MCV MCH MCHC RDW Plt Count MPV Absolute Nucleated RBC Nucleated RBC % (auto) Neutrophils % (Manual) Band Neutrophils % Lymphocytes % (Manual) Monocytes % (Manual) Abs Neuts (Manual) Lymphocytes # (Manual) Monocytes # (Manual) Platelet Estimate Plt Morphology Comment RBC Morphology PT INR Anion Gap Estim Creat Clear Calc Estimated GFR Random Glucose Fasting Glucose Lactic Acid Lactic Acid F/U @ 2Hr Calcium Magnesium Total Bilirubin Direct Bilirubin AST ALT Alkaline Phosphatase Lactate Dehydrogenase Total Protein Albumin Lipase Urine Color DK YELLOW Urine Appearance CLEAR Urine pH 6.5 Ur Specific Branscomb 1.010 Urine Protein 2+ H Urine Glucose (UA) 100 H Urine Ketones 40 Urine Blood NEG Urine Nitrite POS H Ur Leukocyte Esterase NEG Urine RBC 0 Urine WBC 0-2 Ur Squamous Epith Cells 2+ Urine Bacteria TRACE Ethyl Alcohol < 10 COVID-19 (YIFAN) Negative COVID-19 Clin Com See Note 10/21/21 10/22/21 10/22/21 16:32 06:01 06:01 MCV 98.9 H MCH 34.8 H MCHC 35.1 RDW 12.9 Plt Count 129 L D MPV 11.1 Absolute Nucleated RBC 0.000 Nucleated RBC % (auto) 0.0 Neutrophils % (Manual) Band Neutrophils % Lymphocytes % (Manual) Monocytes % (Manual) Abs Neuts (Manual) Lymphocytes # (Manual) Monocytes # (Manual) Platelet Estimate Plt Morphology Comment RBC Morphology PT 11.2 INR 1.0 Anion Gap Estim Creat Clear Calc Estimated GFR Random Glucose Fasting Glucose Lactic Acid Lactic Acid F/U @ 2Hr 1.9 Calcium Magnesium Total Bilirubin Direct Bilirubin AST ALT Alkaline Phosphatase Lactate Dehydrogenase Total Protein Albumin Lipase Urine Color Urine Appearance Urine pH Ur Specific Branscomb Urine Protein Urine Glucose (UA) Urine Ketones Urine Blood Urine Nitrite Ur Leukocyte Esterase Urine RBC Urine WBC Ur Squamous Epith Cells Urine Bacteria Ethyl Alcohol COVID-19 (YIFAN) COVID-[employer] Com 10/22/21 08:18 MCV MCH MCHC RDW Plt Count MPV Absolute Nucleated RBC Nucleated RBC % (auto) Neutrophils % (Manual) Band Neutrophils % Lymphocytes % (Manual) Monocytes % (Manual) Abs Neuts (Manual) Lymphocytes # (Manual) Monocytes # (Manual) Platelet Estimate Plt Morphology Comment RBC Morphology PT INR Anion Gap 12 Estim Creat Clear Calc 129.2 Estimated GFR > 60 Random Glucose Fasting Glucose 89 Lactic Acid Lactic Acid F/U @ 2Hr Calcium 9.5 D Magnesium 1.6 Total Bilirubin 0.8 Direct Bilirubin 0.4 AST 42 H ALT 38 Alkaline Phosphatase 60 D Lactate Dehydrogenase Total Protein 5.7 L D Albumin 3.1 L D Lipase Urine Color Urine Appearance Urine pH Ur Specific Branscomb Urine Protein Urine Glucose (UA) Urine Ketones Urine Blood Urine Nitrite Ur Leukocyte Esterase Urine RBC Urine WBC Ur Squamous Epith Cells Urine Bacteria Ethyl Alcohol COVID-19 (YIFAN) COVID-19 Clin Com Assessment and Plan (1) Alcohol withdrawal: Status: Acute Assessment and Plan: 55M presented with abdominal pain ? Acute alcoholic pancreatitis still with pain, continue ivf, pain meds, clears ? Alcohol dependence with withdrawal and underlying steatohepatitis with element of acute hepatitis ?phenobarbital protocol ?monitor LFTs ?alcohol cessation hypomagenesemia replace and monitor ?hypertension ?amlodipine ?COPD ?inhalers as needed ?DVT prophylaxis Lovenox ?full code Quality Stroke Does the patient have a stroke diagnosis?: No VTE Prior VTE?: No VTE Risk Level:: Medical - moderate - high VTE Device Contraindication: Treatment Not Indicated VTE Drug Contraindication: N/A - Med Ordered
--- NOTE | 2021-10-22 09:36 | MHC.CM.PN ---
CM attempted top meet with Patient, who has a Sitter, at bedside, but patient did not awaken to his name. CM spoke with Patient's /HCP/Maia over the phone at [phone]. Patient lives in a house with his and children ages 18-30 years of age and he is functionally independent and working. Goal for dc is home no services vs Care Team intervention r/t ETOH and CM has initiated and will follow for dc planning. PCP is Dr. James Eden.
[2021-10-22] MEDS: Magnesium Sulfate/H2O 2 GM/50 ML PIGGYBACK IV (10:57)
[2021-10-22] MEDS: Enoxaparin Sodium 40 MG/0.4 ML SYRINGE SUBCUT (16:01)
[2021-10-22] MEDS: HYDROmorphone HCl 1 MG/ML SYRINGE IVPUSH (17:31)
[2021-10-23] MEDS: Lactated Ringers 1,000 ML 150 ML IVCONT (00:07)
[2021-10-23 03:18] VITALS: BP 107/61; PULSE 76; RESP 16; TEMP 37.6; O2SAT 92
[2021-10-23 07:04] VITALS: BP 108/64; PULSE 82; RESP 18; TEMP 36.7; O2SAT 94
[2021-10-23 07:38] LABS: Hematocrit 39.9 % (42.0-52.0); Hemoglobin 13.9 g/dl (14.0-18.0); Mean Corpuscular HGB Conc 34.8 g/dl (31.0-36.0); Mean Corpuscular Hemoglobin 34.7 pg (27.0-33.0); Mean Corpuscular Volume 99.5 fL (80.0-98.0); Mean Platelet Volume 11.2 fL (9.4-12.4); Platelet Count 113 X10*3/uL (160-400); Red Blood Count 4.01 X10*6/uL (4.60-5.80); Red Cell Distribution Width 12.6 % (11.0-16.0); White Blood Count 9.3 X10*3/uL (4.8-10.8)
[2021-10-23 08:09] LABS: Anion Gap 12 (12-20); Blood Urea Nitrogen 9 mg/dL (9-16); Carbon Dioxide 21 mmol/L (22-29); Chloride 102 mmol/L (96-108); Estimated Glomerular Filt Rate > 60; Glucose Fasting 75 mg/dL (60-99); Potassium 3.4 mmol/L (3.3-5.1); Sodium 132 mmol/L (135-145)
[2021-10-23 08:15] LABS: Calcium 8.3 mg/dL (8.4-10.2)
[2021-10-23 08:24] VITALS: BP 108/64; PULSE 82
[2021-10-23] MEDS: amLODIPine Besylate 10 MG TABLET PO (08:24)
[2021-10-23] MEDS: PHENobarbitaL 15 MG TABLET 45 MG PO (08:24)
[2021-10-23] MEDS: 0.9 % Sodium Chloride Flush 3 ML SYRINGE IVFLUSH (08:26)
[2021-10-23 11:01] VITALS: BP 105/65; PULSE 92; RESP 18; TEMP 36.6; O2SAT 95
--- NOTE | 2021-10-23 11:39 | PM.DS ---
DS: Providers Provider Date of Service: 10/23/21 Date of admission: 10/21/21 16:58 Primary care physician: James Eden MD DS: Diagnosis Discharge Diagnosis (1) Alcohol withdrawal: Status: Acute (2) Acute pancreatitis: Status: Acute (3) Hypomagnesemia: Status: Acute (4) Acidosis, lactic: Status: Acute DS: Summary Hospital Course Hospital Course: admission note HPI 55M ? Complaining of 1-2 days of epigastric abdominal pain.? Pain is radiating to back. ? associated with loss of appetite, nausea, 3 episodes of vomiting food contents.? Patient drinks alcohol daily, last drink about 24 hours prior to presentation.? Denies chest pain, shortness of breath, fever.? In ED CT abdomen consistent with acute pancreatitis. Hospital course the patient was admitted for treatment of abdominal pain believed to be secondary to alcohol pancreatitis. Treated with IV fluid, pain medication as his diet was advanced over the course of hospital stay. To tolerated that well I did not require any pain medication for almost the last 24 hours. To be discharged home with advise of total abstinence from alcohol. Received phenobarbital protocol for history of alcohol withdrawal and started to symptoms. Withdrawal controlled. Noticed to have hypomagnesemia which was replaced. Time Spent with Patient Time attestation: Total time spent providing and/or coordinating discharge services: Discharge coordination time: Greater than 30 minutes Quality: Stroke Does the patient have a stroke diagnosis?: No Physical Exam Vital Signs: Vital Signs: Last Vital Signs Temp 97.8 F 10/23/21 11:01 Pulse 92 10/23/21 11:01 Resp 18 10/23/21 11:01 BP 105/65 10/23/21 11:01 Pulse Ox 95 10/23/21 11:01 BMI result Body Mass Index 27.3 Const: Other: Constitutional : Alert, oriented, not in distress Neck : Normal inspection, Supple Cardiovascular : RRR, S1 S2, no lower extremity edema Respiratory : Good bilateral air entry, no crackles, wheezes or rhonchi Gastrointestinal: soft, lax, Normal bowel sounds, Mild epigastric tenderness Skin : Warm, Dry Neurological : Alert & oriented x3, No focal deficit DS: Data Data Completed and Pending Labs on day of discharge: Laboratory Results - last 24 hr 10/23/21 10/23/21 06:43 06:57 WBC 9.3 RBC 4.01 L Hgb 13.9 L Hct 39.9 L MCV 99.5 H MCH 34.7 H MCHC 34.8 RDW 12.6 Plt Count 113 L MPV 11.2 Absolute Nucleated RBC 0.000 Nucleated RBC % (auto) 0.0 Sodium 132 L Potassium 3.4 Chloride 102 Carbon Dioxide 21 L Anion Gap 12 BUN 9 Creatinine 0.58 Estim Creat Clear Calc 147.0 Estimated GFR > 60 Fasting Glucose 75 Calcium 8.3 L D Magnesium 2.0 Preliminary micro results at discharge 10/21/21 14:07 Blood Culture - Preliminary Blood - Venous No growth after 24 hours. 10/21/21 14:08 Blood Culture - Preliminary Blood - Venous No growth after 24 hours. 10/21/21 16:41 Urine Culture - Preliminary Urine clean catch - Urine benton top No growth to date. Discharge Plan Discharge Patient Disposition: Home, Self-Care Discharge Diagnosis: alcohol withdrawal Acute pancreatitis Referrals: James Eden MD [Primary Care Provider] - 1 Week Discharge Medications: Continued amlodipine 10 mg tablet 10 mg PO DAILY Qty: 90 RF: 3 Spiriva Respimat 2.5 mcg/actuation mist 2 puff inhalation DAILY Qty: 4 RF: 3 diclofenac sodium 1 % Gel 2 g TOPICAL QID PRN (Reason: Pain) RF: 0 Discharge Orders: Discharge Order (Routine); Ordered 10/23/21 Ordered By: Ashkan Neal Diet: advance to usual diet Activity on Discharge: As tolerated Stand Alone Forms: Patient Portal Discharge page Care Plan Goals: Read below Health Concerns: Read below Plan of Treatment: Read below Assessment: you were admitted to the hospital for evaluation of abdominal pain. Images were significant for pancreatitis secondary to alcohol. You were treated with IV fluid, pain medication as your diet was advanced gradually over the course of hospital stay. You were able to tolerate diet well. We advise you complete absence from alcohol. Discharge Date/Time: 10/23/21 14:00
--- NOTE | 2021-10-23 11:51 | MHC.CM.PN ---
Patient has been medically cleared for dc to home today, self care.
== END 2021-10-23 14:00 | disposition home or self-care (01) | DRG 282 ==
LOC: HO.ED 16:24 → HO.EDOVER 17:51 → HO.IMC 22:44
PROVIDERS: Emergency Medicine; Admitting Provider Internal Medicine; Emergency Provider Emergency Medicine Emergency Medical Services; PCP Internal Medicine; Visit Provider Student in an Organized Health Care Education/Training Program
DX: K85.20 Alcohol induced acute pancreatitis without necrosis or infection (principal); E87.2 Acidosis; E83.42 Hypomagnesemia; I10 Essential (primary) hypertension; J44.9 Chronic obstructive pulmonary disease, unspecified; F10.239 Alcohol dependence with withdrawal, unspecified; F17.210 Nicotine dependence, cigarettes, uncomplicated; Z71.6 Tobacco abuse counseling; Z20.822 Contact with and (suspected) exposure to COVID-19; Z79.899 Other long term (current) drug therapy
CPT/HCPCS: 36415; 74177; 80048; 80076; 81001; 82077; 83605; 83615; 83690; 83735; 85007; 85027; 85610; 87040; 87086; 87635; 93005; 96361; 96374; 96375; 96376; 99285; 99291; J1170; J1650; J2060; J2270; J2405; J2560; J3411; J3475; Q9967

== ENCOUNTER → 2021-11-21 14:34 | Outpatient (BNVA) | payer BC, SELFPAY | PROVIDERS: PCP Internal Medicine; Visit Provider Internal Medicine ==

== ENCOUNTER 2022-08-08 15:34 | Outpatient (REF) | payer BC, SELFPAY ==
--- NOTE | ~2022-08-08 | CT_ITS ---
EXAMINATION: CT CHEST SCREENING CLINICAL INFORMATION: Current smoker. 30 pack year history. COMPARISON: Previous chest CT November 2019 and chest x-ray September 2019 TECHNIQUE: Multidetector volumetric CT imaging of the chest is performed without contrast using low dose technique. Additional 2D coronal and sagittal reformatted images and axial 3D maximum intensity projection (MIP) images are generated on the CT workstation. This CT examination was performed using dose optimization techniques as appropriate, variously including the following: *Automated exposure control *Adjustment of mA and/or kV according to patient size (this includes techniques or standardized protocols for targeted exams where dose is matched to indication/reason for exam; i.e. extremities or head) *Use of iterative reconstruction technique DLP: 56 mGy-cm FINDINGS: LUNGS: There is evidence of mild emphysema. There is linear scarring at the left lung apex. The lungs are otherwise clear. No endobronchial or endotracheal lesion. MEDIASTINUM: The mediastinum is normal. CORONARY ARTERY CALCIFICATION: Moderate PLEURA: There is no pleural effusion. No pleural mass or thickening. Right posterior medial diaphragmatic hernia containing fat. AXILLA: No lymphadenopathy. UPPER ABDOMEN: Fatty liver. Diverticulosis of the colon. OSSEOUS STRUCTURES: Degenerative changes of the spine. CT/CT lung screening IMPRESSION: Emphysema. Mild linear scarring at the left lung apex. Coronary artery calcification. ASSESSMENT: Lung-RADS category 2: Benign RECOMMENDATION: Annual low-dose chest CT follow-up recommended.
== END 2022-08-08 15:35 | disposition home or self-care (01) ==
LOC: HO.CT 15:34
PROVIDERS: Visit Provider Physician Assistant Medical
DX: Z12.2 Encounter for screening for malignant neoplasm of respiratory organs (principal); F17.210 Nicotine dependence, cigarettes, uncomplicated
CPT/HCPCS: 71271; G0296

== ENCOUNTER → 2022-08-26 14:42 | Outpatient (BNVA) | payer BC, SELFPAY | PROVIDERS: PCP Internal Medicine; Visit Provider Internal Medicine | DX: Z01.818 Encounter for other preprocedural examination (principal); M16.11 Unilateral primary osteoarthritis, right hip; J44.9 Chronic obstructive pulmonary disease, unspecified; D75.1 Secondary polycythemia; F17.210 Nicotine dependence, cigarettes, uncomplicated | CPT/HCPCS: 94010 ==

== ENCOUNTER 2022-11-05 10:37 | Outpatient (REF) | payer BC, SELFPAY ==
[2022-11-05 10:51] VITALS: BMI 27.3
[2022-11-05 10:52] VITALS: BP 168/118; PULSE 99; RESP 16; TEMP 37.1
[2022-11-05 11:00] VITALS: BP 170/96
[2022-11-05 11:27] VITALS: BP 144/96; PULSE 80; RESP 16; O2SAT 96
--- NOTE | 2022-11-05 11:31 | W.PM.OPN ---
Operative Note Operative Note Date of Service: 11/05/22 Narrative: Preop diagnosis: Epidermal inclusion cyst, left cheek Postop diagnose: Epidermal inclusion cyst, left cheek 3 cm in diameter Procedure: Excision of epidermal inclusion cyst, under local anesthesia Surgeon: Emil Crook MD The patient is a 57-year-old male with note of a cystic mass on the left cheek about 3 cm in diameter. He understood the technique of excision under local anesthesia. He was aware of the risks, benefits, and alternatives. He was brought to the minor procedure room. He was placed supine with the area of the cyst on the left cheek was prepped and draped. Lidocaine 1% was used for local anesthesia. I made an incision on the skin overlying the cyst using blade 15. And this was carried down through the full-thickness of the skin until the cyst capsule was visualized. I sharply dissected the cyst capsule using fine scissors off of the rest of subcutaneous layer circumferentially until this was delivered. This was sent as a specimen. I irrigated copiously. I closed the incision with full-thickness nylon 5 0 interrupted sutures. Dressings were applied. The procedure was then completed. He tolerated procedure well. There were no immediate complications. Estimated blood loss about 5 cc The patient was given wound care instructions. He was also instructed to see his primary care physician as his blood pressure was elevated.
== END 2022-11-05 10:38 | disposition home or self-care (01) ==
LOC: HO.MS 10:37
PROVIDERS: PCP Internal Medicine; Visit Provider Surgery
PROC: (CPT 11443; principal; 2022-11-05 11:00)
DX: L72.0 Epidermal cyst (principal)
CPT/HCPCS: 11443; 88304

== ENCOUNTER → 2022-11-19 10:26 | Outpatient (BNVA) | payer BC, SELFPAY | PROVIDERS: PCP Internal Medicine; Visit Provider Surgery | DX: Z13.89 Encounter for screening for other disorder (principal) ==

== ENCOUNTER 2023-06-05 14:26 | Outpatient (AMB) | payer BC, SELFPAY ==
[2023-06-05 14:27] VITALS: BP 126/70; PULSE 64; O2SAT 96; BMI 27.0
--- NOTE | 2023-06-05 14:27 | MHC.PC.OV ---
Vital Signs 06/05/23 14:27 Height 5 ft 7 in Weight 172 lb 6 oz BMI 27.0 BP 126/70 Blood Pressure Location Rt brachial Position Sitting Pulse 64 Pulse Source Pulse Oximeter Pulse Oximetry (%) 96 Oxygen Delivery Method Room Air Intake Visit Reasons: Physical Allergies chlorthalidone Adverse Reaction (Severe, Verified 06/05/23 14:27) stomach upset nicotine Adverse Reaction (Verified 06/05/23 14:27) Redness of Skin Medication List - Last Reconciled 06/05/23 by James Eden MD amlodipine 10 mg PO DAILY Spiriva Respimat 2.5 mcg/actuation (tiotropium bromide) 2 puffs inhalation DAILY NS Tobacco use date assessed: 06/05/23 Dental Screening Dental Screen Date: 06/05/23 Did you have a dental visit in the last 12 months?: Yes Did you have a dental problem in the last 6 months where you did not have access to dental care?: No Was dental information given to patient?: No HPI Physical HPI Details Physical exam appointment Continue to drink heavily and smoke Patient is severe consequences we have discussed that many times He is seeing Dr. Sethi for severe COPD Scanning CT scan throat badge was this Dr. Dean for polycythemia and hemochromatosis He is HETEROZYGOUS FOR THE H63D MUTATION. His recent ferritin level was 878 Patient has had visit with Dr. Dean already aspirin was recommended And he has a follow-up appointment in 6 months His sodium was low at 131 most likely secondary to heavy drinking I have ordered metabolic profile and again repeated in a weeks Blood pressure is stable patient is amlodipine 10 mg PCP office. Personal hygiene needs improvement Patient had difficulty performing tandem walk [facility] Medical History Alcoholism COPD (chronic obstructive pulmonary disease) Epidermal cyst of face Hemochromatosis Hypertension, essential LFT elevation Polycythemia Serum calcium elevated Tubular adenoma of colon (~2020) Surgical History History of colonoscopy History of esophagogastroduodenoscopy (EGD) History of hydrocelectomy History of right hip replacement Family History Father Stroke Mother CVD (cardiovascular disease) Paternal Aunt Smoker Cancer Son Asthma Social History Household Members: Family Housing: House Are you a primary residential care facility manager to a significant other at home: No Do you presently have visiting nurse or other home services: No Unable to assess alcohol history related to: Refusing to respond Alcohol intake: current Alcohol intake frequency: 3 or more drinks per day Alcohol type: beer and hard liquor Patient Tobacco Use Status: Current everyday Tobacco user Tobacco use type: Cigarette Cigarette Packs Per Day: 1.5 Cigarettes Per Day: 30.0 Years Smoked: (onset 16yo, 1.5ppd x 40yrs, 50+pyh) e-Cigarette/Vaping Use: Never Used Substance Use Type: Marijuana service: No Current occupational status: employed 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 How often do you have a drink containing alcohol?: 2-3 times a week 2. How many drinks containing alcohol do you have on a typical day when you are drinking?: 1 or 2 3. How often do you have six or more drinks on one occasion?: Never Total Score: 3 Score Reviewed/Action Taken: Yes GENIA-7 AMB Questionnaire GENIA-7 Date GENIA - 7 assessed: 08/20/22 Source: Developed by Drs. Efraín Leonard, Becky Cuevas, Maykel Parekh and colleagues, with an educational karen from [employer]. Review of Systems Const Denies chills, Denies fever(s) and Denies headache(s) Eyes Denies blurry vision ENT Denies headache(s), Denies nasal discharge, Denies nasal obstruction, Denies odynophagia and Denies sinus pain Card Denies chest pain at rest and Denies chest pain with activity Resp Denies cough and Denies hemoptysis GI Denies diarrhea, Denies odynophagia, Denies vomiting and Denies hematemesis Reports as per HPI Musc Denies abnormal gait Skin/Breast Reports as per HPI Neuro Denies Neuro-related abnormal movements, Denies Abnormal speech present, Denies abnormal gait, Denies headache(s) and Denies Sensory deficit (Neuro) Psych Denies mood swings and Denies paranoia Endo Reports as per HPI Moses/Lymph Reports as per HPI Aller/Immun Reports as per HPI Physical exam (Primary Care) Vital Signs: Last Vital Signs Pulse 64 06/05/23 14:27 BP 126/70 06/05/23 14:27 Pulse Ox 96 06/05/23 14:27 Oxygen Delivery Method Room Air 06/05/23 14:27 BMI result Body Mass Index 27.0 Tobacco/Smoking Status: Tobacco use Status Tobacco use date assessed 06/05/23 06/05/23 14:29 Patient Tobacco Use Status Current everyday Tobacco 06/05/23 14:29 Tobacco use type Cigarette 06/05/23 14:29 e-Cigarette/Vaping Use Never Used 06/05/23 14:29 Thrive Assessment: Date of Thrive Assessment Date Thrive assessed 08/20/22 06/05/23 14:29 Const General: cooperative, comfortable and no acute distress Orientation/consciousness: patient oriented x3 HENMT Head: Yes normocephalic and Yes atraumatic Eyes General: appearance normal, both eyes and all related structures Pupils: Equal, round and reactive pupils present EOM: EOMs intact bilaterally Neck Neck: Yes supple and No lymphadenopathy Thyroid: Thyroid normal Lymphatic: no lymphadenopathy noted Chest Breast/axilla palpation: normal palpation of the breasts Resp Effort & Inspection: normal respiratory effort and able to speak in complete sentences Auscultation: clear to auscultation bilaterally Cardio Heart sounds: S1 normal heart sound present and S2 normal heart sound present GI Palpation (GI): Soft to palpation and nontender Auscultation: normal bowel sounds General: Yes no CVA tenderness Back/Spine/Pelvis Back: no CVA tenderness Skin General skin exam: elasticity normal and turgor normal Neuro General: patient oriented x3 and gait normal Cranial nerves: Yes Equal, round and reactive pupils present Speech: No Abnormal speech present Sensory Exam: No Sensory deficit (Neuro) Coordination: Romberg test negative Extrem General: Yes normal exam except as noted and No edema Assessment and Plan Assessment & Plan (1) Encounter for general adult medical examination with abnormal findings: Code(s): Z00.01 - Encounter for general adult medical examination with abnormal findings (2) Hypertension, essential: Code(s): I10 - Essential (primary) hypertension (3) COPD (chronic obstructive pulmonary disease): Comment: He has mild to moderate degree of obstructive airway disorder, It is remaining relatively stable. Intermittent cough is mainly related to smoking. TX : Continue to use Spiriva Respimat 2.5 mg 2 inhalations daily. ProAir HFA 2 puffs Q 4-6 hours p.r.n. ( he hardly needs to use ) Code(s): J44.9 - Chronic obstructive pulmonary disease, unspecified (4) Polycythemia: Comment: He has had hemochromatosis/polycythemia, secondary to lifelong smoking. He has never had any phlebotomy. Lost CBC on 07/08/2022 HB/HCT 15/42.9 normal. Code(s): D75.1 - Secondary polycythemia (5) Hemochromatosis: Code(s): E83.119 - Hemochromatosis, unspecified (6) Hyponatremia: Code(s): E87.1 - Hypo-osmolality and hyponatremia Plan Physical exam appointment Colonoscopy was will be consented 2020 Continue to drink heavily and smoke Patient is severe consequences we have discussed that many times He is seeing Dr. Sethi for severe COPD Scanning CT scan throat badge was this Dr. Dean for polycythemia and hemochromatosis He is HETEROZYGOUS FOR THE H63D MUTATION. His recent ferritin level was 878 Patient has had visit with Dr. Dean already aspirin was recommended And he has a follow-up appointment in 6 months His sodium was low at 131 most likely secondary to heavy drinking I have ordered metabolic profile and again repeated in a weeks Blood pressure is stable patient is amlodipine 10 mg PCP office. Personal hygiene needs improvement Patient had difficulty performing tandem walk Orders: Orders Basic Metabolic Panel Today E87.1 - Hypo-osmolality and hyponatremia Coding Level of Care Code Est Pt Prev Care 40-64y(16919) Diagnoses Encounter for general adult medical examination with abnormal findings Z00.01 Hypertension, essential I10 COPD (chronic obstructive pulmonary disease) J44.9 Polycythemia D75.1 Hemochromatosis E83.119 Hyponatremia E87.1
== END 2023-06-05 15:09 | disposition home or self-care (01) ==
PROVIDERS: PCP Internal Medicine; Visit Provider Internal Medicine
DX: Z00.01 Encounter for general adult medical examination with abnormal findings (principal); I10 Essential (primary) hypertension; J44.9 Chronic obstructive pulmonary disease, unspecified; D75.1 Secondary polycythemia; E83.119 Hemochromatosis, unspecified; E87.1 Hypo-osmolality and hyponatremia
CPT/HCPCS: 99396

== ENCOUNTER 2023-08-25 14:56 | Outpatient (AMB) | payer BC, SELFPAY ==
--- NOTE | 2023-08-25 15:03 | A.OFFVIS_ITS ---
Intake Vital Signs 08/25/23 15:04 Height 5 ft 7 in Weight 174 lb BMI 27.2 BP 132/80 Blood Pressure Location Lt brachial Position Sitting Pulse 65 Pulse Oximetry (%) 97 Oxygen Delivery Method Room Air Intake Visit Reasons: COPD Intake Note: pt is here for follow up and states he does have coughing, wheezing and shortness of breath sprivia is not really helping as much as it use to. 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 HE IS NOT PREPARED TO QUIT SMOKING. HE IS PARTICIPATING IN ANNUAL LUNG. SCREENING PROGRAM BEING TREATED FOR MILD CHRONIC OBSTRUCTIVE PULMONARY DISEASE. HE STATES THAT HIS BREATHING IS OKAY EXCEPT , BOUTS OF MORNING COUGH, ONLY MILD SHORTNESS OF BREATH ON CLIMBING STAIRS, AND SOME WHEEZING AT NIGHT. HE IS BEING TREATED WITH SAYS SPIRIVA RESPIMAT 2.5 MCG , BUT SOMETIME HE FORGETS TO USE IT IN THE MORNING AND ENDS UP USING 2 INHALATIONS IN THE EVENING. HE HAD THE RIGHT HIP SURGERY IN SIZE SUMMER OF THIS YEAR AND HE RECOVERED VERY WELL. PATIENT ALSO HAS BEEN FOLLOWED UP FOR SECONDARY POLYCYTHEMIA AND, HIS HEMOGLOBIN IS STAYING NORMAL, HAS NOT REQUIRED PHLEBOTOMY. [facility] Medical History Epidermal cyst of face Tubular adenoma of colon (~2020) Alcoholism LFT elevation Hypertension, essential Serum calcium elevated Hemochromatosis Polycythemia COPD (chronic obstructive pulmonary disease) Surgical History History of right hip replacement History of colonoscopy History of hydrocelectomy History of esophagogastroduodenoscopy (EGD) Family History Father Stroke Mother CVD (cardiovascular disease) Paternal Aunt Smoker Cancer Son Asthma Social History Household Members: Family Housing: House Are you a primary animal care provider to a significant other at home: No Do you presently have visiting nurse or other home services: No Unable to assess alcohol history related to: Refusing to respond Alcohol intake: current Alcohol intake frequency: 3 or more drinks per day Alcohol type: beer and hard liquor Patient Tobacco Use Status: Current everyday Tobacco user Tobacco use type: Cigarette Cigarette Packs Per Day: 1.5 Cigarettes Per Day: 30.0 Years Smoked: (onset 16yo, 1.5ppd x 40yrs, 50+pyh) e-Cigarette/Vaping Use: Never Used Substance Use Type: Marijuana service: No Current occupational status: employed 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 Cognitive needs: No Hearing needs: No Vision needs: Yes Review of Systems Const All systems reviewed & are unremarkable except as noted in HPI and below Eyes Reports no additional complaints ENT Reports no additional complaints Card Denies chest pain, Denies irregular heart rhythm and Denies leg edema Resp Reports as per HPI GI Reports no additional complaints Reports no additional complaints Musc Reports back pain (Mild at nights) Skin/Breast Reports system reviewed and no additional complaints, except as documented Neuro Reports no additional complaints Psych Reports no additional complaints Physical Exam Vital Signs: Last Vital Signs Pulse 65 08/25/23 15:04 BP 132/80 08/25/23 15:04 Pulse Ox 97 08/25/23 15:04 Oxygen Delivery Method Room Air 08/25/23 15:04 BMI result Body Mass Index 27.2 Const General: comfortable, no acute distress, alert and awake Orientation/consciousness: patient oriented x3 HEENT Head: Yes normal to inspection General nose exam: No nasal polyps present and No nasal discharge present Face and sinus: Yes sinuses nontender Mouth: oropharynx normal Throat: Yes posterior oropharynx normal Eyes General: appearance normal, both eyes and all related structures Neck Neck: Yes normal visual inspection, Yes no lymphadenopathy, Yes trachea midline and Yes no JVD Thyroid: Thyroid normal Chest Chest palpation & inspection: normal inspection of the chest, normal palpation of entire chest wall and no tenderness Resp Other: Percussion note is resonant, breath sounds are slightly distant with prolonged e xpiratory phase. No wheezes rhonchi or crepitations are heard today. Cardio Palpation: normal PMI Rate: regular rate Rhythm: regular rhythm Heart sounds: no gallops and no murmurs Peripheral pulses: Peripheral pulses 2+ throughout GI Palpation (GI): Soft to palpation, nontender, No hepatosplenomegaly present and no masses Auscultation: normal bowel sounds Back/Spine/Pelvis Thoracic/Lumbar Spine: thoracic and lumbar spine normal to inspection Skin General skin exam: no rashes or lesions noted Lesions: lesion noted (A grape sized cyst over left cheek) Neuro General: patient oriented x3 and no focal motor deficits Cranial nerves: Yes CN's II-XII intact bilaterally Extrem General: Yes normal to inspection, Yes no clubbing, cyanosis or edema and Yes no calf tenderness Psych Appearance: grossly normal Speech and movement: Normal speech and movement present Assessment & Plan Assessment & Plan (1) Nicotine dependence, cigarettes, uncomplicated: Comment: (current smoker - onset 16yo, 1.5ppd x 40yrs, 50+pyh) Once again counseled to cut down and stop smoking, But he is categorically not in a mood to do that. ADVISED TO CONTINUE HAVING ANNUAL LUNG SCREENING, WITH LDCT . Code(s): F17.210 - Nicotine dependence, cigarettes, uncomplicated (2) COPD (chronic obstructive pulmonary disease): Comment: He has mild to moderate degree of obstructive airway disorder, It is remaining relatively stable. Intermittent cough is mainly related to smoking. TX : Continue to use Spiriva Respimat 2.5 mg 2 inhalations daily. ProAir HFA 2 puffs Q 4-6 hours p.r.n. ( he hardly needs to use ) Code(s): J44.9 - Chronic obstructive pulmonary disease, unspecified (3) Polycythemia: Comment: He has had hemochromatosis/polycythemia, secondary to lifelong smoking. He has never had any phlebotomy. Lost CBC on in march 2023 HB/HCT 14/41 normal. Code(s): D75.1 - Secondary polycythemia Coding Level of Care Code Est Pt Level 3 (36943) Diagnoses Nicotine dependence, cigarettes, uncomplicated F17.210 COPD (chronic obstructive pulmonary disease) J44.9 Polycythemia D75.1
[2023-08-25 15:04] VITALS: BP 132/80; PULSE 65; O2SAT 97; BMI 27.2
== END 2023-08-25 15:33 | disposition home or self-care (01) ==
PROVIDERS: PCP Internal Medicine; Visit Provider Internal Medicine
DX: F17.210 Nicotine dependence, cigarettes, uncomplicated (principal); J44.9 Chronic obstructive pulmonary disease, unspecified; D75.1 Secondary polycythemia
CPT/HCPCS: 99213

== ENCOUNTER → 2023-08-25 14:56 | Outpatient (BNVA) | payer BC, SELFPAY | PROVIDERS: PCP Internal Medicine; Visit Provider Internal Medicine ==

== ENCOUNTER 2023-10-19 14:27 | Inpatient (IN) | payer BC, SELFPAY ==
--- NOTE | ~2023-10-19 | CT_ITS ---
EXAMINATION: CT ABDOMEN AND PELVIS WITH CONTRAST CLINICAL INFORMATION: Epigastric pain with question of pancreatitis COMPARISON: None available. TECHNIQUE: Multidetector volumetric images were obtained from the superior aspect of the liver through the pubic symphysis following administration 85 mL of Omnipaque 350 intravenous contrast. Sagittal and coronal reformatted images were obtained on the technologist's workstation. Oral contrast: No This CT examination was performed using dose optimization techniques as appropriate, variously including the following: *Automated exposure control *Adjustment of mA and/or kV according to patient size (this includes techniques or standardized protocols for targeted exams where dose is matched to indication/reason for exam; i.e. extremities or head) *Use of iterative reconstruction technique DLP: 510 mGy-cm FINDINGS: LUNG BASES: Emphysematous changes are present at the lung bases. No infiltrates, effusions or suspicious masses. LIVER, GALLBLADDER, AND BILIARY TREE: The liver is normal in size but with decreased attenuation suggesting steatosis. No focal hepatic lesion or biliary ductal dilatation is present. The gallbladder is unremarkable with no evidence of radiopaque gallstones, gallbladder wall thickening, or obvious pericholecystic inflammatory changes. PANCREAS: There is evidence of severe pancreatitis with peripancreatic edema and multiple cysts. A large cyst is noted in the pancreatic neck extending up into the joseph hepatis which measures 5.6 x 7.3 x 6.6 cm (3:15), new since the prior study. Another more phlegmonous solid appearing area is present measuring 4.3 x 4.4 x 5.4 cm (3:23) which has no fat plane between it and the stomach. Fluid is present in the gastrohepatic ligament. Fluid is present in the anterior pararenal space on the left, but not the right. VASCULAR: The main portal vein and intrahepatic portal veins are patent. The splenic vein is occluded and was patent at the time of the 10/21/2021 CT scan. The IVC and hepatic veins appear normal. The renal veins are normal. The aorta and iliofemoral vessels are tortuous and fusiformly dilated without discrete aneurysm. SPLEEN: Spleen is not enlarged. ADRENAL GLANDS: Unremarkable. KIDNEYS AND URETERS: The kidneys are normal in size, shape, and attenuation. No hydronephrosis, hydroureter, or calculi seen. No perinephric stranding. BLADDER: The bladder is only partially distended and demonstrates symmetric wall thickening. No bladder calculi are seen GASTROINTESTINAL TRACT: Extensive colonic diverticulosis is present in the sigmoid without diverticulitis. Scattered diverticula seen elsewhere in the colon. There is some local dilatation of small bowel loops near the pancreas occluding the third portion of the duodenum which is probably secondary to focal ileus. The small and large bowel are otherwise unremarkable. The appendix is unremarkable. ABDOMINAL WALL: No significant hernia is appreciated. There is a tiny periumbilical hernia seen containing only fat. LYMPH NODES: No retroperitoneal lymphadenopathy. PELVIC VISCERA: The prostate and seminal vesicles are unremarkable. OSSEOUS STRUCTURES: Right hip prosthesis is new when compared with the 2020 CT scan with progressive degenerative changes left hip have occurred with narrowing of the superior joint space. Degenerative changes are seen in the spine from L4 through S1. No bony destructive lesions CT/CT abdomen pelvis w IV con IMPRESSION: 1. Severe pancreatitis with peripancreatic edema and multiple cysts. The largest cyst is in the pancreatic neck extending up into the joseph hepatis. Another more phlegmonous solid appearing area is present measuring 4.3 x 4.4 x 5.4 cm which has no fat plane between it and the stomach. 2. The splenic vein is newly occluded and was patent at the time of the 10/21/2021 CT scan. 3. Other incidental findings as described above including emphysema, hepatic steatosis, colonic diverticulosis, new right hip prosthesis and progressive degenerative changes in the spine and left hip. Fleischner guidelines were followed.
[2023-10-19 14:34] VITALS: BP 150/99; PULSE 73; RESP 20; TEMP 36.6; O2SAT 97; BMI 26.0
--- NOTE | 2023-10-19 14:34 | ED.GENADULT ---
HPI - General Adult General Chief complaint: Abdominal Pain Stated complaint: UPPER ABD PAIN Time Seen by Provider: 10/19/23 20:19 History of Present Illness HPI narrative: Patient is a 57-year-old male who was a regular beer drinker. He says that about 2 days ago he started to experience epigastric pain that was similar to pain he has had before with pancreatitis. He says that he last had pancreatitis significantly a couple of years ago but he has had occasional milder episodes that he has managed at home. 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 He takes no regular medications. He says that he had a 6 pack of beer last night but today he has been feeling too unwell. He has had some nausea and vomiting. 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 He says that he normally drinks a six-pack of beer per day. He has a primary care doctor, Dr. Eden. He says he is on no regular medications. Related Data Previous Rx's Medication Instructions Recorded amlodipine 10 mg tablet 10 mg PO DAILY #90 tabs 08/20/22 tiotropium bromide 2.5 2 puff inhalation DAILY copd 90 09/28/23 mcg/actuation mist for inhalation days #4 grams (Spiriva Respimat) Allergies Allergy/AdvReac Type Severity Reaction Status Date / Time chlorthalidone AdvReac Severe stomach Verified 08/25/23 15:25 upset nicotine AdvReac Redness of Verified 08/25/23 15:07 Skin Review of Systems Review of Systems: Yes all other systems are reviewed and are negative PMFSH Past Medical History Medical History Epidermal cyst of face Tubular adenoma of colon (~2020) Alcoholism LFT elevation Hypertension, essential Serum calcium elevated Hemochromatosis Polycythemia COPD (chronic obstructive pulmonary disease) Surgical History History of right hip replacement History of colonoscopy History of hydrocelectomy History of esophagogastroduodenoscopy (EGD) Family History Family History Father Stroke Mother CVD (cardiovascular disease) Paternal Aunt Smoker Cancer Son Asthma Social History Social History Household Members: Family Housing: House Are you a primary home care coordinator to a significant other at home: No Do you presently have visiting nurse or other home services: No Unable to assess alcohol history related to: Refusing to respond Alcohol intake: current Alcohol intake frequency: 3 or more drinks per day Alcohol type: beer Patient Tobacco Use Status: Current everyday Tobacco user Tobacco use type: Cigarette Cigarette Packs Per Day: 1.5 Cigarettes Per Day: 30.0 Years Smoked: (onset 16yo, 1.5ppd x 40yrs, 50+pyh) Smoked in Last 30 Days: Yes e-Cigarette/Vaping Use: Never Used Use of substances other than those prescribed or required for medical reasons: Yes Substance Use Type: Marijuana Advance Directives: No Advance Directives Information Provided: No service: No Current occupational status: employed 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 He is a poorly kempt 57-year-old who looks older than his age. He does not appear acutely toxic. HENMT Other: The face is symmetrical. Mucous membranes moist. Eyes Other: Pupils are round equal, conjunctivae are clear Neck Other: Neck is unremarkable. No swelling. No JVD. Resp Other: Lungs are clear bilaterally. Cardio Other: The patient has a regular rate and rhythm with no murmur GI Other: The patient is tender in the epigastrium. Skin Other: The skin is discolored in a manner consistent with a person who works with grime and dirt. Neuro Other: The patient is awake and alert. Face is symmetrical. Speech is clear. Moving his extremities symmetrically. Grossly neurologically intact. Extrem Other: No peripheral edema Course Course Course Narrative: This is an RME: Additional HPI, ROS, PE not included below will be deferred to primary provider. 57 yo m presents w/ upper abd pain, nausea and vomiting X 2 days. Drinks alcohol a lot . Hx of pancreatitis. Last drink last night 6 pack of beer. No hx of alcohol w/ drawl or DTs. Plan- labs, ua Medications Administered Discontinued Medications Generic Name Dose Route Start Last Admin Trade Name Digna PRN Reason Stop Dose Admin Sodium Chloride 1,000 mls @ 999 mls/hr 10/19/23 14:45 10/19/23 20:15 Ns IV 10/19/23 15:45 999 mls/hr .Q1H1M LEI Administration Iohexol 85 ml 10/19/23 21:03 10/19/23 21:03 Iohexol 350 Mg/Ml 75 Ml Infus..Btl IV 10/19/23 21:04 85 ml ONCE ONE Administration Ketorolac Tromethamine 30 mg 10/19/23 14:37 10/19/23 20:15 Ketorolac Tromethamine 15 Mg/Ml Vial IVPUSH 10/19/23 14:38 30 mg ONCE ONE Administration Morphine Sulfate 4 mg 10/19/23 20:27 10/19/23 20:38 Morphine Sulfate 4 Mg/Ml Cartridge IVPUSH 10/19/23 20:28 4 mg ONCE ONE Administration Protocol Medical Decision Making Medical Decision Making MDM Narrative: The patient is a 57-year-old male with a history of alcoholic pancreatitis. He has been hospitalized once before for pancreas in 2020. He says that since then he has not been hospitalized at any other hospital. Patient says that he drinks 6 beers per day. He has had epigastric pain for about 2 days. The pain is similar to the pain he had with previous pancreatitis. Patient says his last alcohol was last night. His alcohol level today is 154. His lipase today is elevated at 137. A CT scan of the abdomen and pelvis however shows significant pancreatitis with multiple cysts and also a splenic vein thrombus. The patient will need to be hospitalized for further evaluation and management of his symptoms and gastroenterology consultation. The patient denies a significant history of alcohol withdrawal symptoms when he does not drink. Lab Data 10/19/23 14:43 10/19/23 14:43 Labs: Lab Results 10/19/23 10/19/23 Range/Units 14:43 21:07 WBC 7.7 (4.8-10.8) X10*3/uL RBC 4.55 L (4.60-5.80) X10*6/uL Hgb 15.1 (14.0-18.0) g/dl Hct 43.3 (42.0-52.0) % MCV 95.2 (80.0-98.0) fL MCH 33.2 H (27.0-33.0) pg MCHC 34.9 (31.0-36.0) g/dl RDW 14.0 (11.0-16.0) % Plt Count 135 L D (160-400) X10*3/uL MPV 9.4 (9.4-12.4) fL Immature Gran % (Auto) 0.5 H (0.0-0.4) % Neut % (Auto) 81.9 H (45-73) % Lymph % (Auto) 11.2 L (20-40) % [place] % (Auto) 5.2 (2-11) % Eos % (Auto) 0.4 (0-4) % Baso % (Auto) 0.8 (0-2) % Lymph # (Auto) 0.9 L (1.2-4.9) X10*3/uL [place] # (Auto) 0.4 (0.1-1.2) X10*3/uL Eos # (Auto) 0.0 (0.0-0.4) X10*3/uL Baso # (Auto) 0.1 (0.0-0.2) X10*3/uL Abs Immat Gran (auto) 0.04 H (0.00-0.03) X10*3/uL Absolute Neuts (auto) 6.3 (2.0-8.3) x10*3/uL Absolute Nucleated RBC 0.000 (0.0-0.012) X10*3/uL Nucleated RBC % (auto) 0.0 (0.0-0.2) /100WBC Sodium 140 (135-145) mmol/L Potassium 4.1 (3.3-5.1) mmol/L Chloride 106 (96-108) mmol/L Carbon Dioxide 21 L (22-29) mmol/L Anion Gap 17 (12-20) BUN 6 L (9-16) mg/dL Creatinine 0.64 (0.5-1.4) mg/dL Estim Creat Clear Calc 120.4 Estimated GFR > 60 Random Glucose 120 H (60-115) mg/dL Calcium 9.5 D (8.4-10.2) mg/dL Magnesium 1.8 (1.6-2.6) mg/dL Total Bilirubin 0.4 (0.0-1.0) mg/dL AST 37 (5-37) U/L ALT 32 (0-40) U/L Alkaline Phosphatase 107 (39-117) U/L Total Protein 7.3 (6.5-8.0) g/dL Albumin 3.8 (3.5-5.0) g/dL Lipase 137 H (8-78) U/L Urine Color Yellow Urine Appearance Clear Urine pH 7.0 (5.0-9.0) Ur Specific [place] 1.015 (1.005-1.025) Urine Protein Trace (Neg-Trace) mg/dL Urine Glucose (UA) Negative (Negative) mg/dL Urine Ketones 15 (Negative) mg/dL Urine Blood Negative (Negative) Urine Nitrite Negative (Negative) Ur Leukocyte Esterase Negative (Negative) Ethyl Alcohol 158 mg/dL Discharge Plan Discharge Patient Disposition: Admitted As Inpatient Prescriptions: No Action Spiriva Respimat 2.5 mcg/actuation mist 2 puff inhalation DAILY 90 Days Qty: 4 3RF amlodipine 10 mg tablet 10 mg PO DAILY Qty: 90 3RF
[2023-10-19 14:46] LABS: MANUAL DIFF FLAG NO
[2023-10-19 14:48] LABS: Basophils Absolute Auto 0.1 X10*3/uL (0.0-0.2); Basophils Percent Auto 0.8 % (0-2); Eosinophils Percent Auto 0.4 % (0-4); Hematocrit 43.3 % (42.0-52.0); Hemoglobin 15.1 g/dl (14.0-18.0); Imm Gran Abs Auto 0.04 X10*3/uL (0.00-0.03); Imm Gran Pct Auto 0.5 % (0.0-0.4); Lymphocytes Absolute Auto 0.9 X10*3/uL (1.2-4.9); Lymphocytes Percent Auto 11.2 % (20-40); Mean Corpuscular HGB Conc 34.9 g/dl (31.0-36.0); Mean Corpuscular Hemoglobin 33.2 pg (27.0-33.0); Mean Corpuscular Volume 95.2 fL (80.0-98.0); Mean Platelet Volume 9.4 fL (9.4-12.4); Monocytes Absolute Auto 0.4 X10*3/uL (0.1-1.2); Monocytes Percent Auto 5.2 % (2-11); Neutrophils Absolute Auto 6.3 x10*3/uL (2.0-8.3); Neutrophils Percent Auto 81.9 % (45-73); Platelet Count 135 X10*3/uL (160-400); Red Blood Count 4.55 X10*6/uL (4.60-5.80); White Blood Count 7.7 X10*3/uL (4.8-10.8)
[2023-10-19 15:06] LABS: Alanine Aminotransferase 32 U/L (0-40); Albumin Level 3.8 g/dL (3.5-5.0); Alkaline Phosphatase 107 U/L (39-117); Anion Gap 17 (12-20); Aspartate Amino Transferase 37 U/L (5-37); Bilirubin Total 0.4 mg/dL (0.0-1.0); Blood Urea Nitrogen 6 mg/dL (9-16); Calcium 9.5 mg/dL (8.4-10.2); Carbon Dioxide 21 mmol/L (22-29); Chloride 106 mmol/L (96-108); Creatinine Clr Calc Pharmacy 120.4; Estimated Glomerular Filt Rate > 60; Glucose Random 120 mg/dL (60-115); Lipase 137 U/L (8-78); Magnesium 1.8 mg/dL (1.6-2.6); Potassium 4.1 mmol/L (3.3-5.1); Sodium 140 mmol/L (135-145); Total Protein 7.3 g/dL (6.5-8.0)
[2023-10-19 16:59] LABS: Ethanol 158 mg/dL
--- NOTE | 2023-10-19 18:45 | PC.NURSE ---
patients called the ED and stated that it is unacceptable that the patient is still sitting in the waiting room waiting for a bed since he already had labs and other tests done. this nurse explained that when it is busy we do as many tests that we can while the patient is waiting for a bed to help move things along once a bed has been obtained. the patients again said this is so unacceptable and hung up the phone on this nurse.
[2023-10-19] MEDS: Ketorolac Tromethamine 15 MG/ML VIAL 30 MG IVPUSH (20:15)
[2023-10-19] MEDS: 0.9 % Sodium Chloride 1,000 ML 999 ML IV (20:15)
[2023-10-19] MEDS: Morphine Sulfate 4 MG/ML CARTRIDGE IVPUSH (20:38)
[2023-10-19 20:43] VITALS: BP 166/93; PULSE 95; RESP 18; TEMP 37.4; O2SAT 94
--- NOTE | 2023-10-19 20:45 | PC.NURSE ---
pt medicated per dec. pt c/o mid abd pain. pt denies cp/sob/n/v/d at this time. ambulatory with steady gait to bathroom to obtain ua at this time. awaiting ct scan. ivf infusing.
[2023-10-19] MEDS: iohexoL 350 MG/ML 75 ML INFUS..BTL 85 ML IV (21:03)
[2023-10-19 21:16] LABS: Appearance Urine Clear; Color Urine Yellow; Glucose Urine UA Negative (Negative); Leukocyte Esterase Urine Negative (Negative); Nitrite Urine Negative (Negative); Specific Gravity - Urine 1.015 (1.005-1.025); Urine Blood Negative (Negative); Urine Ketones 15 mg/dL (Negative); Urine Protein Trace mg/dL (Neg-Trace)
[2023-10-19 22:00] VITALS: BP 174/107; PULSE 82; RESP 16; TEMP 36.6; O2SAT 96
--- NOTE | 2023-10-19 22:49 | P.HPHOSP_ITS ---
History of Present Illness Date of Service: 10/19/23 Attending physician on admission: Moses Stark Chief Complaint: Upper abdominal pain x2 days This is a 57-year-old white man with underlying history of COPD, erythrocytosis, active tobacco use disorder, hypertension and alcoholic pancreatitis (last admitted 2 years ago 10/21/2021) who presents to the emergency room complaining of upper abdominal pain for the last 2-3 days. He admits to heavy alcohol consumption stating that he drinks about a six-pack of beer every day with his last drink being last night. He describes ongoing non-radiating upper abdominal pain for several days now. It was initially mild but has progressively worsened and today was associated with nausea and vomiting. He denies any associated fevers, chills or diarrhea. Initial work-up done in the emergency room was significant for mildly elevated serum lipase at 137. An abdominal CT scan done showed severe pancreatitis with peripancreatic edema and multiple cysts. He also has splenic vein occlusion. Admission has been requested for bowel rest, pain control and hydration. Review of Systems 2 Review of Systems: Yes all other systems are reviewed and are negative [facility] Medical History Epidermal cyst of face Tubular adenoma of colon (~2020) Alcoholism LFT elevation Hypertension, essential Serum calcium elevated Hemochromatosis Polycythemia COPD (chronic obstructive pulmonary disease) Family History Father Stroke Mother CVD (cardiovascular disease) Paternal Aunt Smoker Cancer Son Asthma Surgical History History of right hip replacement History of colonoscopy History of hydrocelectomy History of esophagogastroduodenoscopy (EGD) Social History Household Members: Family Housing: House Are you a primary health care coach to a significant other at home: No Do you presently have visiting nurse or other home services: No Unable to assess alcohol history related to: Refusing to respond Alcohol intake: current Alcohol intake frequency: 3 or more drinks per day Alcohol type: beer Patient Tobacco Use Status: Current everyday Tobacco user Tobacco use type: Cigarette Cigarette Packs Per Day: 1.5 Cigarettes Per Day: 30.0 Years Smoked: (onset 16yo, 1.5ppd x 40yrs, 50+pyh) Smoked in Last 30 Days: Yes e-Cigarette/Vaping Use: Never Used Use of substances other than those prescribed or required for medical reasons: Yes Substance Use Type: Marijuana Advance Directives: No Advance Directives Information Provided: No service: No Current occupational status: employed 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 Cognitive needs: No Hearing needs: No Vision needs: Yes Meds Allergies Allergy/AdvReac Type Severity Reaction Status Date / Time chlorthalidone AdvReac Severe stomach Verified 08/25/23 15:25 upset nicotine AdvReac Redness of Verified 08/25/23 15:07 Skin Home Medications Medication Instructions Recorded Confirmed Last Taken Type amlodipine 10 mg tablet 10 mg PO DAILY 10/19/23 10/19/23 Unknown History tiotropium bromide 2.5 2 puff inhalation DAILY 10/19/23 10/19/23 Unknown History mcg/actuation mist for inhalation (Spiriva Respimat) Physical Exam 2 Vital Signs and Narrative: Vital Signs: Last Vital Signs Temp 97.9 F 10/19/23 22:00 Pulse 82 10/19/23 22:00 Resp 16 10/19/23 22:00 BP 174/107 H 10/19/23 22:00 Pulse Ox 96 10/19/23 22:00 O2 Del Method Room Air 10/19/23 22:00 BMI result Body Mass Index 26.0 General: Well nourished male in bed. Awake, alert and oriented x 4. No apparent distress Eyes: No pallor or jaundice. PERRLA, EOMI HENT: Moist oral mucus membranes. No oropharyngeal lesions. Neck: Supple. No cervical adenopathy. No JVD Cardiovascular: Regular rate and rhythm. Normal heart sounds. No murmurs, rubs or gallops. No JVD. No peripheral edema. Respiratory: Normal respiratory effort with no accessory muscle use. CTAB. , CTA bilaterally Gastrointestinal: Abdomen is soft, with mild discomfort in the upper abdominal area. NABS. No hepatosplenomegaly Extremities: No edema. No calf tenderness. Good peripheral pulses Skin: Warm/Dry. No rashes. No mottling. Capillary refill is < 2 seconds Neurological: AAOx4. Intact speech & cognition. Normal gait & balance. CN II - XII grossly intact but not individually tested. No motor or sensory deficits Hematologic: No bleeding. No ecchymosis. No swollen or tender lymph nodes. Psychiatric: Cooperative. Appropriate mood and affect . Results Labs 10/19/23 14:43 10/19/23 14:43 Labs: Laboratory Results - last 24 hr 10/19/23 10/19/23 14:43 21:07 MCV 95.2 MCH 33.2 H MCHC 34.9 RDW 14.0 Plt Count 135 L D MPV 9.4 Immature Gran % (Auto) 0.5 H Neut % (Auto) 81.9 H Lymph % (Auto) 11.2 L [place] % (Auto) 5.2 Eos % (Auto) 0.4 Baso % (Auto) 0.8 Lymph # (Auto) 0.9 L [place] # (Auto) 0.4 Eos # (Auto) 0.0 Baso # (Auto) 0.1 Abs Immat Gran (auto) 0.04 H Absolute Neuts (auto) 6.3 Absolute Nucleated RBC 0.000 Nucleated RBC % (auto) 0.0 Anion Gap 17 Estim Creat Clear Calc 120.4 Estimated GFR > 60 Random Glucose 120 H Calcium 9.5 D Magnesium 1.8 Total Bilirubin 0.4 AST 37 ALT 32 Alkaline Phosphatase 107 Total Protein 7.3 Albumin 3.8 Lipase 137 H Urine Color Yellow Urine Appearance Clear Urine pH 7.0 Ur Specific [place] 1.015 Urine Protein Trace Urine Glucose (UA) Negative Urine Ketones 15 Urine Blood Negative Urine Nitrite Negative Ur Leukocyte Esterase Negative Ethyl Alcohol 158 ECG Prior ECG tracings: not available for review Imaging Radiologist's Impressions: Impressions Abdomen/Pelvis CT 10/19/23 21:08 IMPRESSION: 1. Severe pancreatitis with peripancreatic edema and multiple cysts. The largest cyst is in the pancreatic neck extending up into the joseph hepatis. Another more phlegmonous solid appearing area is present measuring 4.3 x 4.4 x 5.4 cm which has no fat plane between it and the stomach. 2. The splenic vein is newly occluded and was patent at the time of the 10/21/2021 CT scan. 3. Other incidental findings as described above including emphysema, hepatic steatosis, colonic diverticulosis, new right hip prosthesis and progressive degenerative changes in the spine and left hip. Fleischner guidelines were followed. Assessment and Plan (1) Acute alcoholic pancreatitis: Qualifiers: Acute pancreatitis complication: no infection or necrosis Qualified Code(s): K85.20 - Alcohol induced acute pancreatitis without necrosis or infection Status: Acute (2) Splenic vein thrombosis: Status: Acute (3) Uncontrolled hypertension: Status: Acute (4) Smoker unmotivated to quit: Status: Acute (5) COPD (chronic obstructive pulmonary disease) with emphysema: Qualifiers: Emphysema type: unspecified Qualified Code(s): J43.9 - Emphysema, unspecified Status: Acute Plan 57-year-old white man with underlying history of COPD, erythrocytosis, active tobacco use disorder, hypertension and alcoholic pancreatitis here with 1. Acute alcoholic pancreatitis - admit for bowel rest, pain control and hydration - can have clear liquids 2. Splenic vein thrombosis - incidental finding - no liver cirrhosis and no gastric varices - consider short term (3-6 months) of DOAC but defer final decision to primary team in the morning 3. Hypertension - uncontrolled (BP 171/92 mmHg) - resume Amlodipine 4. Alcohol abuse - at risk of withdrawal - encourage sobriety - place on CIWA - start on Phenobarbital 5. Active smoker - smokes 1.5 PPD - not motivated to quit and declines NRT - encourage smoking cessation 6. COPD - resume Spiriva - add PRN albuterol DVT: Lovenox for now CODE STATUS: Full code Admission for at least 2 midnights for management of acute alcoholic pancreatitis Quality Stroke Does the patient have a stroke diagnosis?: No VTE Prior VTE?: No VTE Risk Level:: Medical - moderate - high VTE Device Contraindication: Treatment Not Indicated VTE Drug Contraindication: N/A - Med Ordered
--- NOTE | 2023-10-19 23:16 | PC.NURSE ---
provider aware of bp.
[2023-10-19] MEDS: PHENobarbitaL sodium 130 MG/ML IM ONCE 260 MG IM (23:19)
[2023-10-19 23:21] VITALS: BP 171/92
[2023-10-19 23:22] VITALS: TEMP 36.9
[2023-10-19] MEDS: oxyCODONE HCl Immed Release 5 MG TABLET PO (23:25)
--- NOTE | 2023-10-19 23:49 | PC.NURSE ---
PT EDUCATED ON PHENOBARB; ADMINISTERED PER DEC. DR. DIAZ AWARE OF BP. PT REPORTS PAIN PRN GIVEN PER DEC. PT MOVED INTO ED ROOM FROM HALLWAY. AWARE OF PLAN OF CARE. DENIES QUESTIONS/CONCERNS AT THIS TIME. CALL CASIANO WITHIN REACH.
[2023-10-20] VITALS (7 sets, daily range): BP systolic 139–172; BP diastolic 82–104; PULSE 55–93; RESP 16–20; TEMP 36.1–37.1; O2SAT 96–99
--- NOTE | 2023-10-20 00:40 | MHC.EDTECH ---
This tech assumed care of patient at 2300,hourly rounds and vitals completed ,patients BP is elevated 164/104 Sveta RN was made aware. Belongings list completed and copy placed in chart. Call conroy within reach
[2023-10-20] MEDS: Morphine Sulfate 4 MG/ML CARTRIDGE 2 MG IVPUSH ×6 (01:00→22:45)
--- NOTE | 2023-10-20 01:00 | PC.NURSE ---
pt requested prn pain meds; pt medicated per mar. pt states hed like to discontinue phenobarb as he believes he does not experience withdrawal sx. dr. stark notified, in agreement. pt also refuses lovenox/toradol; Dr. Stark aware. pt sleeping in stretcher resp even and unlabored. lights dimmed. call conroy within reach.
--- NOTE | 2023-10-20 02:20 | MHC.EDTECH ---
Hourly rounds completed,patient is sleeping at this time and call conroy within reach
--- NOTE | 2023-10-20 04:27 | MHC.EDTECH ---
Hourly rounds completed,patient is sleeping resp.rate WNL,call conroy within reach
--- NOTE | 2023-10-20 06:13 | MHC.EDTECH ---
Hourly rounds and vitals completed,BP is elevated 164/103 Irem RN made aware. Patient ambulated with a steady gait to the bathroom. call conroy within reach
[2023-10-20 06:22] LABS: Hematocrit 42.8 % (42.0-52.0); Hemoglobin 15.2 g/dl (14.0-18.0); Mean Corpuscular HGB Conc 35.5 g/dl (31.0-36.0); Mean Corpuscular Hemoglobin 33.3 pg (27.0-33.0); Mean Corpuscular Volume 93.7 fL (80.0-98.0); Mean Platelet Volume 9.7 fL (9.4-12.4); Platelet Count 129 X10*3/uL (160-400); Red Blood Count 4.57 X10*6/uL (4.60-5.80); Red Cell Distribution Width 13.7 % (11.0-16.0); White Blood Count 5.8 X10*3/uL (4.8-10.8)
[2023-10-20 06:27] LABS: Alanine Aminotransferase 25 U/L (0-40); Albumin Level 3.6 g/dL (3.5-5.0); Alkaline Phosphatase 99 U/L (39-117); Anion Gap 15 (12-20); Aspartate Amino Transferase 29 U/L (5-37); Bilirubin Total 0.9 mg/dL (0.0-1.0); Blood Urea Nitrogen 6 mg/dL (9-16); C Reactive Protein 0.23 mg/dL (< or = 0.50); Calcium 9.3 mg/dL (8.4-10.2); Carbon Dioxide 22 mmol/L (22-29); Chloride 101 mmol/L (96-108); Creatinine Clr Calc Pharmacy 130.7; Estimated Glomerular Filt Rate > 60; Glucose Random 95 mg/dL (60-115); Lactate Dehydrogenase 190 U/L (118-273); Lipase 63 U/L (8-78); Potassium 3.7 mmol/L (3.3-5.1); Sodium 134 mmol/L (135-145); Total Protein 6.9 g/dL (6.5-8.0)
--- NOTE | 2023-10-20 07:15 | PHA.MEDREC ---
Pharmacy Consult ? Medication Reconciliation Pharmacy has reviewed the medication reconciliation done by RN.
--- NOTE | 2023-10-20 08:41 | P.CNGI_ITS ---
History of Present Illness Data of Consult Service Date: 10/20/23 Requesting physician: Fiona Mariee Primary Care Provider: James Eden MD HPI Reason for consult: pancreatitis 57-year-old white man with underlying history of COPD, erythrocytosis, active tobacco use disorder, hypertension and alcoholic pancreatitis (last admitted 2 years ago 10/21/2021) who I am seeing for assessment for pancreatitis and splenic vein occlusion Patient noted few days of severe non radiating epigastric pain 8/10 in severity without any relieving factors but worse with food. He admits to drinking 6 pack of beer daily for years. He has had similar pain due to pancreatitis in the past but says this is not as bad. He also noted nausea, and non bloody vomiting. He denies any associated fevers, chills or diarrhea. he is passing gas, and has had normal stools. Labs: mild raised lipase, nml HGB CT: severe pancreatitis with peripancreatic edema, multiple pancreatic cysts and splenic vein occlusion Review of Systems 2 Review of Systems: Constitutional : No Weight loss, No Fever, No Chills ENT/Mouth : No sore throat, No Rhinorrhea Eyes: No Swelling, No Redness Cardiovascular : No Chest Pain, No SOB, No Edema Respiratory : No Cough, No Sputum, No Wheezing Gastrointestinal : see HPI Genitourinary : NO Dysuria, No Urinary Frequency, No Hematuria, No Urgency Musculoskeletal : No joint pain, No Myalgias, No Joint Swelling Skin : No Skin Lesions, No rash Neuro : No Weakness, No Numbness, No Dizziness, No Headache Psych : No Anxiety/Panic, No Depression Heme/Lymph: No Bruising, No Lymphadenopathy Endocrine : No Polyuria, No Polydipsia All other systems reviewed and are negative. [facility] Past Medical History Medical History Epidermal cyst of face Tubular adenoma of colon (~2020) Alcoholism LFT elevation Hypertension, essential Serum calcium elevated Hemochromatosis Polycythemia COPD (chronic obstructive pulmonary disease) Family History Family History Father Stroke Mother CVD (cardiovascular disease) Paternal Aunt Smoker Cancer Son Asthma Surgical History Surgical History History of right hip replacement History of colonoscopy History of hydrocelectomy History of esophagogastroduodenoscopy (EGD) Social History Social History Household Members: Family and Children Housing: House Are you a primary career services representative to a significant other at home: No Do you presently have visiting nurse or other home services: No Unable to assess alcohol history related to: Refusing to respond Alcohol intake: current Alcohol intake frequency: 3 or more drinks per day Alcohol type: beer Patient Tobacco Use Status: Current everyday Tobacco user Tobacco use type: Cigarette Cigarette Packs Per Day: 1.5 Cigarettes Per Day: 30.0 Years Smoked: (onset 16yo, 1.5ppd x 40yrs, 50+pyh) e-Cigarette/Vaping Use: Never Used Substance Use Type: Marijuana service: No Current occupational status: employed 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 Cognitive needs: No Hearing needs: No Vision needs: Yes Meds Allergies Allergy/AdvReac Type Severity Reaction Status Date / Time chlorthalidone AdvReac Severe stomach Verified 08/25/23 15:25 upset nicotine AdvReac Redness of Verified 08/25/23 15:07 Skin Active Medications: Current Medications Acetaminophen (Acetaminophen 325 Mg Tablet) 650 mg PO Q6H PRN PRN Reason: Pain, Mild (Pain Scale 1-3) Al Hydroxide/Mg Hydroxide (Magnesium Hydrox/Alum Hydrox 30 Ml Oral.Susp) 30 ml PO Q4H PRN PRN Reason: Heartburn/Nausea Amlodipine Besylate (Amlodipine Besylate 10 Mg Tablet) 10 mg PO DAILY [facility]; Protocol Enoxaparin Sodium (Enoxaparin Sodium 40 Mg/0.4 Ml Syringe) 40 mg SUBCUT Q24H [facility] Last Admin: 10/19/23 23:17 Dose: Not Given Melatonin (Melatonin 3 Mg Tablet) 6 mg PO BEDTIME PRN PRN Reason: Insomnia Morphine Sulfate (Morphine Sulfate 4 Mg/Ml Cartridge) 2 mg IVPUSH Q4H PRN; Protocol PRN Reason: Pain, Severe (Pain Scale 7-10) Last Admin: 10/20/23 06:31 Dose: 2 mg Ondansetron HCl (Ondansetron Hcl 4 Mg/2 Ml Vial) 4 mg IVPUSH Q8H PRN PRN Reason: Nausea and Vomiting Oxycodone HCl (Oxycodone Hcl Immed Release 5 Mg Tablet) 5 mg PO Q6H PRN PRN Reason: Pain, Moderate(Pain Scale 4-6) Last Admin: 10/19/23 23:25 Dose: 5 mg Pharmacy Consult (Consult Rx Etoh Phenob Im/Po) 1 each MISCELLANE ONCE PRN; Protocol PRN Reason: Consult order Phenobarbital (Phenobarbital 15 Mg Tablet) 45 mg PO BID [facility]; Protocol Stop: 10/22/23 09:01 Phenobarbital (Phenobarbital 15 Mg Tablet) 15 mg PO BID [facility]; Protocol Stop: 10/24/23 09:01 Phenobarbital (Phenobarbital 15 Mg Tablet) 15 mg PO DAILY [facility]; Protocol Stop: 10/26/23 09:01 Sodium Chloride (0.9 % Sodium Chloride Flush 3 Ml Syringe) 3 [facility] Last Admin: 10/20/23 00:18 Dose: Not Given Tiotropium [place] (Tiotropium [place] 2.5 Mcg 1 Puff/2.5 Mcg Mist.Inhal) 2 puff INHALE DAILY [facility] Home Medications Medication Instructions Recorded Confirmed Last Taken Type amlodipine 10 mg tablet 10 mg PO DAILY 10/19/23 10/19/23 Unknown History tiotropium bromide 2.5 2 puff inhalation DAILY 10/19/23 10/19/23 Unknown History mcg/actuation mist for inhalation (Spiriva Respimat) Physical Exam 2 Vital Signs: Vital Signs: Last Vital Signs Temp 97.1 F 10/20/23 08:00 Pulse 55 10/20/23 08:00 Resp 18 10/20/23 08:00 BP 172/84 H 10/20/23 08:00 Pulse Ox 99 10/20/23 08:00 O2 Del Method Room Air 10/20/23 08:00 BMI result Body Mass Index 26.0 EXAM: GENERAL: The patient is dishevelled, rhinophyma noted VITAL SIGNS:see workflow HEENT: Nonicteric sclerae, PERRLA, EOMI. Oropharynx clear. Moist mucous membranes. Conjunctivae appear well perfused. No thyroid mass. CHEST: Chest wall is nontender. HEART: Regular rate and rhythm without murmurs. LUNGS: Clear to auscultation bilaterally. ABDOMEN: Soft, positive bowel sounds, nontender, no organomegaly.no flank tenderness SKIN: dry hands, thickened skin NEUROLOGIC: Cranial nerves II-XII intact without motor/sensory deficit. psych, nml Results Labs 10/20/23 05:42 10/20/23 05:42 Labs: Short CBC 10/19/23 10/20/23 Range/Units 14:43 05:42 WBC 7.7 5.8 (4.8-10.8) X10*3/uL Hgb 15.1 15.2 (14.0-18.0) g/dl Hct 43.3 42.8 (42.0-52.0) % Plt Count 135 L D 129 L (160-400) X10*3/uL BMP 10/19/23 10/20/23 14:43 05:42 Sodium 140 134 L Potassium 4.1 3.7 Chloride 106 101 Carbon Dioxide 21 L 22 BUN 6 L 6 L Creatinine 0.64 0.59 Calcium 9.5 D 9.3 Liver Function 10/19/23 10/20/23 Range/Units 14:43 05:42 Total Bilirubin 0.4 0.9 (0.0-1.0) mg/dL AST 37 29 (5-37) U/L ALT 32 25 (0-40) U/L Alkaline Phosphatase 107 99 (39-117) U/L Albumin 3.8 3.6 (3.5-5.0) g/dL Urine 10/19/23 Range/Units 21:07 Urine Color Yellow Urine Appearance Clear Urine pH 7.0 (5.0-9.0) Ur Specific [place] 1.015 (1.005-1.025) Urine Protein Trace (Neg-Trace) mg/dL Urine Glucose (UA) Negative (Negative) mg/dL Imaging CT scan - abdomen: Attestation: I personally reviewed and interpreted this imaging study as follows: (pancreatitis, splenic v thrombosis, diverticulosis, pancreatic edema, fluid) Radiologist's impression: IMPRESSION: 1. Severe pancreatitis with peripancreatic edema and multiple cysts. The largest cyst is in the pancreatic neck extending up into the joseph hepatis. Another more phlegmonous solid appearing area is present measuring 4.3 x 4.4 x 5.4 cm which has no fat plane between it and the stomach. 2. The splenic vein is newly occluded and was patent at the time of the 10/21/2021 CT scan. 3. Other incidental findings as described above including emphysema, hepatic steatosis, colonic diverticulosis, new right hip prosthesis and progressive degenerative changes in the spine and left hip. Assessment and Plan (1) Acute alcoholic pancreatitis: Qualifiers: Acute pancreatitis complication: no infection or necrosis Qualified Code(s): K85.20 - Alcohol induced acute pancreatitis without necrosis or infection Status: Acute (2) Splenic vein thrombosis: Status: Acute Plan 1/ Acute on chronic pancreatitis with pseudocysts 2/ spelnic vein thrombosis from 1/ above PLAN: 1/ Would hold on anti coagulation at this time, thrombosis is probably subacute or chronic from chronic pancreatitis and he conts to drink, would only treat if the thrombus extends into the SMA 2/ fluids with LR 3/ analgesia and bowel rest 4/ can trial clears when able 5/ encouraged on smoking and alcohol cessation 6/ check triglycerides Procedures Date of Service Date of Service: 10/20/23
[2023-10-20] MEDS: 0.9 % Sodium Chloride Flush 3 ML SYRINGE IVFLUSH ×3 (09:34→14:41)
[2023-10-20] MEDS: amLODIPine Besylate 10 MG TABLET PO (09:34)
--- NOTE | 2023-10-20 09:53 | HO.PM.IMPN ---
Subjective Subjective Date of Service: 10/20/23 Review of Systems Follow-up pancreatitis, abdominal pain, alcohol use and withdrawal Pain is moderately controlled Denies nausea, vomiting, diarrhea Physical Exam Vital Signs: Vital Signs: Last Vital Signs Temp 97.1 F 10/20/23 08:00 Pulse 55 10/20/23 08:00 Resp 18 10/20/23 08:00 BP 172/84 H 10/20/23 08:00 Pulse Ox 99 10/20/23 08:00 O2 Del Method Room Air 10/20/23 08:00 BMI result Body Mass Index 26.0 Appearing in no acute distress lung sounds are clear to auscultation heart regular rate rhythm, clear S1, S2 positive bowel sounds, abdomen is soft, nontender neuro patient is alert x3, no focal deficits Objective Data Active Medications Acetaminophen (Acetaminophen 325 Mg Tablet) 650 mg PO Q6H PRN PRN Reason: Pain, Mild (Pain Scale 1-3) Al Hydroxide/Mg Hydroxide (Magnesium Hydrox/Alum Hydrox 30 Ml Oral.Susp) 30 ml PO Q4H PRN PRN Reason: Heartburn/Nausea Amlodipine Besylate (Amlodipine Besylate 10 Mg Tablet) 10 mg PO DAILY [facility]; Protocol Last Admin: 10/20/23 09:34 Dose: 10 mg Documented By: NICHOLAS Enoxaparin Sodium (Enoxaparin Sodium 40 Mg/0.4 Ml Syringe) 40 mg SUBCUT Q24H [facility] Last Admin: 10/19/23 23:17 Dose: Not Given Documented By: JUAQUIN Non-Admin Reason: Patient Refused Melatonin (Melatonin 3 Mg Tablet) 6 mg PO BEDTIME PRN PRN Reason: Insomnia Morphine Sulfate (Morphine Sulfate 4 Mg/Ml Cartridge) 2 mg IVPUSH Q4H PRN; Protocol PRN Reason: Pain, Severe (Pain Scale 7-10) Last Admin: 10/20/23 06:31 Dose: 2 mg Documented By: JUAQUIN Ondansetron HCl (Ondansetron Hcl 4 Mg/2 Ml Vial) 4 mg IVPUSH Q8H PRN PRN Reason: Nausea and Vomiting Oxycodone HCl (Oxycodone Hcl Immed Release 5 Mg Tablet) 5 mg PO Q6H PRN PRN Reason: Pain, Moderate(Pain Scale 4-6) Last Admin: 10/19/23 23:25 Dose: 5 mg Documented By: JUAQUIN Pharmacy Consult (Consult Rx Etoh Phenob Im/Po) 1 each MISCELLANE ONCE PRN; Protocol PRN Reason: Consult order Phenobarbital (Phenobarbital 15 Mg Tablet) 45 mg PO BID [facility]; Protocol Stop: 10/22/23 09:01 Phenobarbital (Phenobarbital 15 Mg Tablet) 15 mg PO BID [facility]; Protocol Stop: 10/24/23 09:01 Phenobarbital (Phenobarbital 15 Mg Tablet) 15 mg PO DAILY [facility]; Protocol Stop: 10/26/23 09:01 Sodium Chloride (0.9 % Sodium Chloride Flush 3 Ml Syringe) 3 ml IVFLUSH QSHIFT [facility] Last Admin: 10/20/23 09:34 Dose: 3 ml Documented By: NICHOLAS Tiotropium [place] (Tiotropium [place] 2.5 Mcg 1 Puff/2.5 Mcg Mist.Inhal) 2 puff INHALE DAILY [facility] Labs 10/20/23 05:42 10/20/23 05:42 Labs: Laboratory Results - last 24 hr 10/19/23 10/19/23 10/20/23 14:43 21:07 05:42 MCV 95.2 93.7 MCH 33.2 H 33.3 H MCHC 34.9 35.5 RDW 14.0 13.7 Plt Count 135 L D 129 L MPV 9.4 9.7 Immature Gran % (Auto) 0.5 H Neut % (Auto) 81.9 H Lymph % (Auto) 11.2 L [place] % (Auto) 5.2 Eos % (Auto) 0.4 Baso % (Auto) 0.8 Lymph # (Auto) 0.9 L [place] # (Auto) 0.4 Eos # (Auto) 0.0 Baso # (Auto) 0.1 Abs Immat Gran (auto) 0.04 H Absolute Neuts (auto) 6.3 Absolute Nucleated RBC 0.000 0.000 Nucleated RBC % (auto) 0.0 0.0 Anion Gap 17 15 Estim Creat Clear Calc 120.4 130.7 Estimated GFR > 60 > 60 Random Glucose 120 H 95 Calcium 9.5 D 9.3 Magnesium 1.8 Total Bilirubin 0.4 0.9 AST 37 29 ALT 32 25 Alkaline Phosphatase 107 99 Lactate Dehydrogenase 190 C-Reactive Protein 0.23 Total Protein 7.3 6.9 Albumin 3.8 3.6 Lipase 137 H 63 Urine Color Yellow Urine Appearance Clear Urine pH 7.0 Ur Specific [place] 1.015 Urine Protein Trace Urine Glucose (UA) Negative Urine Ketones 15 Urine Blood Negative Urine Nitrite Negative Ur Leukocyte Esterase Negative Ethyl Alcohol 158 Assessment and Plan (1) Splenic vein thrombosis: Status: Acute (2) Acute alcoholic pancreatitis: Status: Acute Plan 57-year-old white man with underlying history of COPD, erythrocytosis, active tobacco use disorder, hypertension and alcoholic pancreatitis here with Acute alcoholic pancreatitis Pain moderately controlled at this time No nausea or vomiting Start clear liquid diet GI consultation Pain management IV fluids Splenic vein thrombosis incidental finding on abdominal CT no liver cirrhosis and no gastric varices Discussed with Gastroenterology whether anticoagulation should be initiated Hypertension uncontrolled (BP 171/92 mmHg) Continue Amlodipine Alcohol abuse at risk of withdrawal encourage sobriety Continue CIWA Continue on Phenobarbital Active smoker smokes 1.5 PPD not motivated to quit and declines NRT encourage smoking cessation COPD No exacerbation resume Spiriva add PRN albuterol DVT: Lovenox for now Attending Dr. Prakash CODE STATUS: Full code Continue hospitalization for treatment of acute pancreatitis requiring IV narcotic medications, IV fluids and close monitoring of status. He also requires specialty consultation for splenic vein thrombosis with discussion of initiation of anticoagulation. This cannot be done at a lesser acute setting. Quality Stroke Does the patient have a stroke diagnosis?: No VTE Prior VTE?: No VTE Risk Level:: Medical - moderate - high VTE Device Contraindication: Treatment Not Indicated VTE Drug Contraindication: N/A - Med Ordered
[2023-10-20] MEDS: Tiotropium Bromide 2.5 mcg 1 PUFF/2.5 MCG MIST.INHAL 2 PUFF INHALE (11:51)
--- NOTE | 2023-10-20 12:25 | MHC.CM.PN ---
EMR REVIEWED, PT ADMITTED W/ACUTE ETOH PANCREATITIS, CM MET W/PT WHO REPORTS HE LIVES W/, IS INDEP W/ALL CARE, DENIES USE OF DME/SERVICES, [employer]AM WILL SEE PT. PT REPORTS GOAL FOR DC IS HOME SELF CARE. PT VERIFIES PCP IS MARISA HENSON X2 W/NO BOOSTERS AND PT EDUCATED ON AND DECLINES TO COMPLETE A HCP.
[2023-10-20] MEDS: PHENobarbitaL 15 MG TABLET 45 MG PO (21:04)
[2023-10-20] MEDS: Enoxaparin Sodium 40 MG/0.4 ML SYRINGE SUBCUT (22:47)
[2023-10-21 03:02] VITALS: BP 145/101; PULSE 92; RESP 20; TEMP 36.2; O2SAT 99
[2023-10-21] MEDS: Morphine Sulfate 4 MG/ML CARTRIDGE 2 MG IVPUSH ×4 (03:04→20:17)
[2023-10-21 07:13] VITALS: BP 161/75; PULSE 99; RESP 20; TEMP 36.1; O2SAT 100
[2023-10-21] MEDS: Tiotropium Bromide 2.5 mcg 1 PUFF/2.5 MCG MIST.INHAL 2 PUFF INHALE (08:28)
[2023-10-21 08:30] VITALS: PULSE 97; RESP 16; O2SAT 98
[2023-10-21] MEDS: PHENobarbitaL 15 MG TABLET 45 MG PO ×2 (09:01→20:16)
[2023-10-21] MEDS: amLODIPine Besylate 10 MG TABLET PO (09:01)
[2023-10-21] MEDS: 0.9 % Sodium Chloride Flush 3 ML SYRINGE IVFLUSH ×2 (09:01→20:17)
[2023-10-21 11:36] VITALS: BP 123/85
[2023-10-21] MEDS: Acetaminophen 325 MG TABLET 650 MG PO (11:49)
[2023-10-21 15:14] VITALS: BP 146/91; PULSE 92; RESP 18; TEMP 36.3; O2SAT 98
--- NOTE | 2023-10-21 15:23 | HO.PM.IMPN ---
Subjective Subjective Date of Service: 10/21/23 Interval History: complains of mild abdominal pain although tolerating clear liquid diet Review of Systems denies chest pain Denies shortness of breath Denies nausea vomiting diarrhea D Physical Exam Vital Signs: Vital Signs: Last Vital Signs Temp 97.3 F 10/21/23 15:14 Pulse 92 10/21/23 15:14 Resp 18 10/21/23 15:14 BP 146/91 H 10/21/23 15:14 Pulse Ox 98 10/21/23 15:14 O2 Del Method Room Air 10/21/23 15:14 BMI result Body Mass Index 26.0 Const: Other: awake alert no acute distress Resp: Other: clear to auscultation bilaterally no rales rhonchi or wheezes Cardio: Other: no S4; positive S1-S2; S3 murmurs rubs or gallops GI: Other: soft minimally tender over mid epigastrium no rebou Extrem: Other: no edema bilaterally Objective Data Active Medications Acetaminophen (Acetaminophen 325 Mg Tablet) 650 mg PO Q6H PRN PRN Reason: Pain, Mild (Pain Scale 1-3) Last Admin: 10/21/23 11:49 Dose: 650 mg Documented By: LYLE Al Hydroxide/Mg Hydroxide (Magnesium Hydrox/Alum Hydrox 30 Ml Oral.Susp) 30 ml PO Q4H PRN PRN Reason: Heartburn/Nausea Amlodipine Besylate (Amlodipine Besylate 10 Mg Tablet) 10 mg PO DAILY [facility]; Protocol Last Admin: 10/21/23 09:01 Dose: 10 mg Documented By: LYLE Enoxaparin Sodium (Enoxaparin Sodium 40 Mg/0.4 Ml Syringe) 40 mg SUBCUT Q24H [facility] Last Admin: 10/20/23 22:47 Dose: 40 mg Documented By: ELZBIETA Melatonin (Melatonin 3 Mg Tablet) 6 mg PO BEDTIME PRN PRN Reason: Insomnia Morphine Sulfate (Morphine Sulfate 4 Mg/Ml Cartridge) 2 mg IVPUSH Q4H PRN; Protocol PRN Reason: Pain, Severe (Pain Scale 7-10) Last Admin: 10/21/23 11:08 Dose: 2 mg Documented By: LYLE Ondansetron HCl (Ondansetron Hcl 4 Mg/2 Ml Vial) 4 mg IVPUSH Q8H PRN PRN Reason: Nausea and Vomiting Oxycodone HCl (Oxycodone Hcl Immed Release 5 Mg Tablet) 5 mg PO Q6H PRN PRN Reason: Pain, Moderate(Pain Scale 4-6) Last Admin: 10/19/23 23:25 Dose: 5 mg Documented By: JUAQUIN Pharmacy Consult (Consult Rx Etoh Phenob Im/Po) 1 each MISCELLANE ONCE PRN; Protocol PRN Reason: Consult order Phenobarbital (Phenobarbital 15 Mg Tablet) 45 mg PO BID [facility]; Protocol Stop: 10/22/23 09:01 Last Admin: 10/21/23 09:01 Dose: 45 mg Documented By: LYLE Phenobarbital (Phenobarbital 15 Mg Tablet) 15 mg PO BID [facility]; Protocol Stop: 10/24/23 09:01 Phenobarbital (Phenobarbital 15 Mg Tablet) 15 mg PO DAILY [facility]; Protocol Stop: 10/26/23 09:01 Sodium Chloride (0.9 % Sodium Chloride Flush 3 Ml Syringe) 3 ml IVFLUSH QSHIFT [facility] Last Admin: 10/21/23 09:01 Dose: 3 ml Documented By: LYLE Tiotropium [place] (Tiotropium [place] 2.5 Mcg 1 Puff/2.5 Mcg Mist.Inhal) 2 puff INHALE DAILY [facility] Last Admin: 10/21/23 08:28 Dose: 2 puff Documented By: IMANI Labs 10/20/23 05:42 10/20/23 05:42 Assessment and Plan (1) Acute alcoholic pancreatitis: Status: Acute (2) Splenic vein thrombosis: Status: Acute (3) Uncontrolled hypertension: Status: Acute Plan 57-year-old white man with underlying history of COPD, erythrocytosis, active tobacco use disorder, hypertension and alcoholic pancreatitis here with 1.Acute alcoholic pancreatitis Pain moderately controlled at this time; tolerating clear liquid diet without nausea or vomiting - pain management as ordered - advance diet as tolerated 2.Splenic vein thrombosis Incidental finding on abdominal CT; seen by Gastroenterology who does not recommend anticoagulation at this time - follow clinically 3.Hypertension Fair control at this time. Cautious advancement of antihypertension in backdrop of early pancreatitis -continue Amlodipine - adjust as indicated 4.Alcohol abuse - no seizures thus far; patient denies any history of alcohol withdrawal seizure - CIWA 0-1 - if continues to be normal would consider DC phenobarb protocol Lovenox Full code Continue hospitalization for treatment of acute pancreatitis requiring IV narcotic medications, IV fluids and close monitoring of status. He also requires specialty consultation for splenic vein thrombosis with discussion of initiation of anticoagulation. Quality Stroke Does the patient have a stroke diagnosis?: No VTE Prior VTE?: No VTE Risk Level:: Medical - moderate - high VTE Device Contraindication: Treatment Not Indicated VTE Drug Contraindication: N/A - Med Ordered
[2023-10-21] MEDS: oxyCODONE HCl Immed Release 5 MG TABLET PO ×2 (16:25→22:07)
[2023-10-21 19:27] VITALS: BP 129/94; PULSE 75; RESP 18; TEMP 36.4; O2SAT 97
[2023-10-22] MEDS: Enoxaparin Sodium 40 MG/0.4 ML SYRINGE SUBCUT (00:06)
[2023-10-22] MEDS: Morphine Sulfate 4 MG/ML CARTRIDGE 2 MG IVPUSH ×3 (00:20→09:03)
[2023-10-22 03:14] VITALS: BP 130/91; PULSE 79; RESP 18; TEMP 36.7; O2SAT 99
[2023-10-22 07:13] VITALS: BP 116/80; PULSE 69; RESP 20; TEMP 36.6; O2SAT 99
[2023-10-22 08:06] LABS: MANUAL DIFF FLAG NO
[2023-10-22 08:14] LABS: Basophils Absolute Auto 0.1 X10*3/uL (0.0-0.2); Basophils Percent Auto 1.1 % (0-2); Eosinophils Absolute Auto 0.1 X10*3/uL (0.0-0.4); Eosinophils Percent Auto 1.7 % (0-4); Hematocrit 42.8 % (42.0-52.0); Hemoglobin 15.2 g/dl (14.0-18.0); Imm Gran Abs Auto 0.02 X10*3/uL (0.00-0.03); Imm Gran Pct Auto 0.4 % (0.0-0.4); Lymphocytes Absolute Auto 1.2 X10*3/uL (1.2-4.9); Lymphocytes Percent Auto 24.3 % (20-40); Mean Corpuscular HGB Conc 35.5 g/dl (31.0-36.0); Mean Corpuscular Hemoglobin 33.1 pg (27.0-33.0); Mean Corpuscular Volume 93.2 fL (80.0-98.0); Mean Platelet Volume 10.9 fL (9.4-12.4); Monocytes Absolute Auto 0.6 X10*3/uL (0.1-1.2); Monocytes Percent Auto 12.3 % (2-11); Neutrophils Absolute Auto 2.9 x10*3/uL (2.0-8.3); Neutrophils Percent Auto 60.2 % (45-73); Platelet Count 111 X10*3/uL (160-400); Red Blood Count 4.59 X10*6/uL (4.60-5.80); Red Cell Distribution Width 13.1 % (11.0-16.0); White Blood Count 4.7 X10*3/uL (4.8-10.8)
[2023-10-22 08:28] LABS: Alanine Aminotransferase 14 U/L (0-40); Albumin Level 3.4 g/dL (3.5-5.0); Alkaline Phosphatase 95 U/L (39-117); Anion Gap 15 (12-20); Aspartate Amino Transferase 17 U/L (5-37); Blood Urea Nitrogen 7 mg/dL (9-16); Carbon Dioxide 23 mmol/L (22-29); Chloride 97 mmol/L (96-108); Creatinine Clr Calc Pharmacy 128.5; Estimated Glomerular Filt Rate > 60; Glucose Fasting 98 mg/dL (60-99); Sodium 131 mmol/L (135-145); Total Protein 6.9 g/dL (6.5-8.0)
[2023-10-22] MEDS: Tiotropium Bromide 2.5 mcg 1 PUFF/2.5 MCG MIST.INHAL 2 PUFF INHALE (08:29)
[2023-10-22 08:30] VITALS: PULSE 69; RESP 16; O2SAT 99
[2023-10-22] MEDS: amLODIPine Besylate 10 MG TABLET PO (09:03)
[2023-10-22] MEDS: PHENobarbitaL 15 MG TABLET 45 MG PO (09:03)
[2023-10-22] MEDS: 0.9 % Sodium Chloride Flush 3 ML SYRINGE IVFLUSH (09:04)
--- NOTE | 2023-10-22 10:47 | MHC.CM.PN ---
ANTIC PT WILL BE MEDICALLY CLEARED HOME SELF CARE LATER TODAY IF TOLERATING DIET, RECOVERY TEAM TO SEE PT FOR ETOH AND PT WILL ARRANGE TRANSPORT HOME.
--- NOTE | 2023-10-22 12:09 | PM.DS ---
DS: Providers Provider Date of Service: 10/22/23 Date of admission: 10/19/23 22:39 Date of discharge: 10/22/23 Primary care physician: James Eden MD Consults: 10/20/23 08:02 Consult to Gastroenterology Routine Consulting Provider: Radha Velásquez Reason for consultation: severe pancreatitis, splenic vein thrombosis 10/22/23 09:21 Addiction Medicine Routine Consulting Provider: Addiction Covering Reason for consultation: etoh abuse Has provider been notified: No Attending physician on discharge: Shamar Prakash Discharging clinician: Veronica Francisco DS: Diagnosis Discharge Diagnosis (1) Acute alcoholic pancreatitis: Status: Acute (2) Splenic vein thrombosis: Status: Acute (3) Uncontrolled hypertension: Status: Acute DS: Summary Hospital Course Hospital Course: From H&P on day of admission This is a 57-year-old white man with underlying history of COPD, erythrocytosis, active tobacco use disorder, hypertension and alcoholic pancreatitis (last admitted 2 years ago 10/21/2021) who presents to the emergency room complaining of upper abdominal pain for the last 2-3 days. He admits to heavy alcohol consumption stating that he drinks about a six-pack of beer every day with his last drink being last night. He describes ongoing non-radiating upper abdominal pain for several days now. It was initially mild but has progressively worsened and today was associated with nausea and vomiting. He denies any associated fevers, chills or diarrhea. Initial work-up done in the emergency room was significant for mildly elevated serum lipase at 137. An abdominal CT scan done showed severe pancreatitis with peripancreatic edema and multiple cysts. He also has splenic vein occlusion. Admission has been requested for bowel rest, pain control and hydration. Acute alcoholic pancreatitis CT showing : Severe pancreatitis with peripancreatic edema and multiple cysts. The largest cyst is in the pancreatic neck extending up into the joseph hepatis. Another more phlegmonous solid appearing area is present. He was also noted to have splenic vein thrombus. He was seen in consultation by GI and was deemed not to need anticoagulation for splenic vein thrombus at this time. He was treated with bowel rest, supportive care with IVF, pain medication and bowel rest. As his pain improved, his diet was advanced and tolerating a regular diet on the day of discharge. For alcohol dependence with risk for withdrawal he was started on phenobarbital protocol. He declined evaluation by Addiction Medicine Service and requested to be discharged home. For elevated blood pressure, his amlodipine was resumed and his blood pressure has improved. For tobacco dependence, smoking cessation was advised, patient is not motivated to quit at this time and declines nicotine replacement therapy. He is encouraged to follow up with his PCP and with GI as an outpatient. Time Attestation Discharge coordination time: Greater than 30 minutes Quality: Safe Use of Opioids Does Pt have an Active Cancer Diagnosis on the Problem List?: No Quality: Stroke Does the patient have a stroke diagnosis?: No Physical Exam Vital Signs: Vital Signs: Last Vital Signs Temp 97.8 F 10/22/23 07:13 Pulse 69 10/22/23 08:30 Resp 16 10/22/23 08:30 BP 116/80 10/22/23 07:13 Pulse Ox 99 10/22/23 07:13 O2 Del Method Room Air 10/22/23 07:13 BMI result Body Mass Index 26.0 Const: General: comfortable, no acute distress, alert and awake Nutritional Appearance: average body habitus Orientation/consciousness: patient oriented x3 Resp: Effort & Inspection: normal respiratory effort, able to speak in complete sentences, no respiratory distress and no use of accessory muscles Cardio: Rate: regular rate GI: Inspection: No distended Palpation (GI): Soft to palpation Neuro: General: patient oriented x3, moves all extremities and CN's II-XI intact bilaterally Extrem: General: Yes no pedal edema DS: Data Data Completed and Pending Completed studies during hospitalization [Text1]: Procedures Detoxification Services for Substance Abuse Treatment (10/21/21) Labs on day of discharge: Laboratory Results - last 24 hr 10/22/23 07:36 WBC 4.7 L RBC 4.59 L Hgb 15.2 Hct 42.8 MCV 93.2 MCH 33.1 H MCHC 35.5 RDW 13.1 Plt Count 111 L MPV 10.9 Immature Gran % (Auto) 0.4 Neut % (Auto) 60.2 Lymph % (Auto) 24.3 [place] % (Auto) 12.3 H Eos % (Auto) 1.7 Baso % (Auto) 1.1 Lymph # (Auto) 1.2 [place] # (Auto) 0.6 Eos # (Auto) 0.1 Baso # (Auto) 0.1 Abs Immat Gran (auto) 0.02 Absolute Neuts (auto) 2.9 Absolute Nucleated RBC 0.000 Nucleated RBC % (auto) 0.0 Sodium 131 L Potassium 4.0 Chloride 97 Carbon Dioxide 23 Anion Gap 15 BUN 7 L Creatinine 0.60 Estim Creat Clear Calc 128.5 Estimated GFR > 60 Fasting Glucose 98 Calcium 10.0 D Total Bilirubin 1.0 AST 17 ALT 14 Alkaline Phosphatase 95 Total Protein 6.9 Albumin 3.4 L Discharge Plan Discharge Anticipated Discharge Date/Time: 10/22/23 12:19 Patient Disposition: Home, Self-Care Discharge Diagnosis: acute pancreatitis due to alcohol uncontrolled HTN alcohol dependence with withdrawal splenic vein occlusion Referrals: Radha Velásquez MD [Physician] - 1 Week James Eden MD [Primary Care Provider] - 1 Week Discharge Medications: Continued amlodipine 10 mg tablet 10 mg PO DAILY Spiriva Respimat 2.5 mcg/actuation mist 2 puff INHALATION DAILY Discharge Orders: Discharge Order (Routine); Ordered 10/22/23 Ordered By: Veronica Francisco Activity on Discharge: As tolerated Stand Alone Forms: Patient Portal Discharge page Care Plan Goals: see below Health Concerns: alcohol dependence with withdrawal alcohol induced pancreatitis occlusion of splenic vein Plan of Treatment: Recommend to take norvasc as prescribe to control blood pressure Recommend to completely avoid alcohol and tobacco Call to schedule follow up appointment with Gastroenterology Call to schedule a follow up appointment with your PCP Assessment: see discharge summary
--- NOTE | 2023-10-22 12:31 | MHC.RECOVRN ---
Met with pt in 485 after consult placed to Addiction Medicine for alcohol use. Pt had presented to the ED c/o upper abd pain x2 days, nausea/vomiting. Pt reported alcohol use, denied hx alcohol withdrawal. Upon evaluation, pt admitted for pancreatitis. Pt sitting in bed, awake, alert, guarded but engages briefly in conversation, preparing for discharge home. Pt reports alcohol use, 6 beers daily x years. Pt reports one ATS admission years ago. Pt denies ever experiencing withdrawal symptoms. Pt reports a few periods of recovery, longest approx 3 months. Pt states I did it cold turkey. Pt currently denies interest in reducing or abstaining from alcohol. Discussed risks of abruptly discontinuing alcohol, pt verbalizes understanding. Pt provided with written recovery resources and supports as well t/w contact information. Encouraged pt to reach out if needed. Pt denies questions or concerns.
== END 2023-10-22 12:58 | disposition home or self-care (01) | DRG 282 ==
LOC: HO.ED 22:26 → HO.EDOVER 23:11 → HO.IMC 10-20 07:19
PROVIDERS: Hospitalist; Physician Assistant; Admitting Provider Internal Medicine; Emergency Provider Emergency Medicine; PCP Internal Medicine; Visit Provider Physician Assistant Medical
DX: K85.20 Alcohol induced acute pancreatitis without necrosis or infection (principal); D73.5 Infarction of spleen; I10 Essential (primary) hypertension; K86.2 Cyst of pancreas; F10.239 Alcohol dependence with withdrawal, unspecified; J44.9 Chronic obstructive pulmonary disease, unspecified; Y90.6 Blood alcohol level of 120-199 mg/100 ml; Z71.41 Alcohol abuse counseling and surveillance of alcoholic; F17.210 Nicotine dependence, cigarettes, uncomplicated; Z71.6 Tobacco abuse counseling; Z79.899 Other long term (current) drug therapy
CPT/HCPCS: 36415; 74177; 80053; 80307; 81003; 83615; 83690; 83735; 85025; 85027; 86140; 94640; 99285; J1650; J1885; J2270; J2560; Q9967

== ENCOUNTER → 2023-10-19 22:39 | Outpatient (BNV) | payer BC, SELFPAY | PROVIDERS: Admitting Provider Internal Medicine; Emergency Provider Emergency Medicine; PCP Internal Medicine; Visit Provider Internal Medicine | DX: K85.20 Alcohol induced acute pancreatitis without necrosis or infection (principal); I82.890 Acute embolism and thrombosis of other specified veins; J43.9 Emphysema, unspecified; F17.200 Nicotine dependence, unspecified, uncomplicated; I10 Essential (primary) hypertension | CPT/HCPCS: 99223; 99232; 99233; 99239 ==

== ENCOUNTER → 2023-10-19 22:39 | Outpatient (BNV) | payer BC, SELFPAY | PROVIDERS: Admitting Provider Internal Medicine; Emergency Provider Emergency Medicine; PCP Internal Medicine; Visit Provider Internal Medicine Gastroenterology | DX: K85.20 Alcohol induced acute pancreatitis without necrosis or infection (principal); I82.890 Acute embolism and thrombosis of other specified veins | CPT/HCPCS: 99223 ==

== ENCOUNTER 2023-10-29 16:21 | Outpatient (REF) | payer BC, SELFPAY ==
--- NOTE | ~2023-10-29 | CT_ITS ---
EXAMINATION: CT CHEST SCREENING CLINICAL INFORMATION: Current smoker, 2 packs per day, 50 pack years. COMPARISON: 08/08/2022 TECHNIQUE: Multidetector volumetric CT imaging of the chest is performed without contrast using low dose technique. Additional 2D coronal and sagittal reformatted images and axial 3D maximum intensity projection (MIP) images are generated on the CT workstation. This CT examination was performed using dose optimization techniques as appropriate, variously including the following: *Automated exposure control *Adjustment of mA and/or kV according to patient size (this includes techniques or standardized protocols for targeted exams where dose is matched to indication/reason for exam; i.e. extremities or head) *Use of iterative reconstruction technique DLP: 56 mGy-cm FINDINGS: LUNGS: The lungs are clear with no evidence of inflammation or concerning nodules. Tiny 1 mm left-sided punctate granuloma present in the infrahilar region on the left (5:243 compare prior 5:264). MEDIASTINUM: The mediastinum is normal. CORONARY ARTERY CALCIFICATION: Moderate. PLEURA: There is no pleural effusion. No pleural mass or thickening. AXILLA: No lymphadenopathy. UPPER ABDOMEN: Marked hepatic steatosis is present. OSSEOUS STRUCTURES: Unremarkable. CT/CT lung screening IMPRESSION: Negative study. Tiny punctate unchanged granuloma. Incidentally noted hepatic steatosis. ASSESSMENT: Lung-RADS category 1: Negative RECOMMENDATION: Routine annual low-dose CT screening in 12 months.
== END 2023-10-29 16:22 | disposition home or self-care (01) ==
LOC: HO.CT 16:21
PROVIDERS: PCP Internal Medicine; Visit Provider Physician Assistant Medical
DX: Z12.2 Encounter for screening for malignant neoplasm of respiratory organs (principal); F17.210 Nicotine dependence, cigarettes, uncomplicated
CPT/HCPCS: 71271

== ENCOUNTER 2023-11-20 12:19 | Outpatient (AMB) | payer BC, SELFPAY ==
[2023-11-20 12:21] VITALS: BP 140/88; PULSE 97; BMI 24.8
--- NOTE | 2023-11-20 12:21 | A.OFFVIS_ITS ---
Intake Vital Signs 11/20/23 12:21 Height 5 ft 7 in Weight 158 lb 4.67 oz BMI 24.8 BP 140/88 H Blood Pressure Location Lt brachial Position Sitting Pulse 97 Intake Visit Reasons: Ed f/u Intake Note: Patient presents to in office visit today in follow up of pancreatitis. CC: Patient went to ER on 10/19/23 with c/o abd pain. Per his he was found to have a blood clot in his splenic vein in his pancreas. 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: No Accompanied by: Spouse Allergies chlorthalidone Adverse Reaction (Severe, Verified 11/20/23 12:31) stomach upset nicotine Adverse Reaction (Verified 11/20/23 12:31) Redness of Skin HPI Ed f/u HPI Details 57-year-old white man with underlying hi story of COPD, erythrocytosis, active tobacco use disorder, hypertension and alcoholic pancreatitis (last admitted 2 years ago 10/21/2021) who I am seeing for f/u RECAP: seen for i/p assessment for pancreatitis and splenic vein occlusion 09/2023 Patient had noted few days of severe non radiating epigastric pain 8/10 in severity without any relieving factors but worse with food. He admitted to drinking 6 pack of beer daily for years. He has had similar pain due to pancreat itis in the past but says this is not as bad. He also noted nausea, and non bloody vomiting. H Labs: mild raised lipase, nml HGB CT: severe pancreatitis with peripancreatic edema, multiple pancreatic cysts and splenic vein occlusion INTERIM: he conts to drink beer and mony, 6 pack and also smoking last few days been having mild epigastric pain, poor appetite, soem nausea and vomiting but none last few days no diarreha or melena some pain and discomfort with swallowing food and liquids EXAM: GENERAL: The patient is dishevelled VITAL SIGNS:see workflow HEENT: Nonicteric sclerae, PERRLA, EOMI. Oropharynx clear. Moist mucous membranes. Conjunctivae appear well perfused. No thyroid mass. CHEST: Chest wall is nontender. HEART: Regular rate and rhythm without murmurs. LUNGS: Clear to auscultation bilaterally. ABDOMEN: Soft, positive bowel sounds, tender epigastrium, no organomegaly.no flank tenderness SKIN: No rash, no excessive bruising, petechiae, or purpura. NEUROLOGIC: Cranial nerves II-XII intact without motor/sensory deficit. A/P: 1/ Severe alcoholic pancreatitis, 2/ epigastric pain possibly from subacut e pancreatitis or alcoholic gastritis 3/ alcohol abuse, ongoing drinking and s moking PLAN: 1/ PPI and carafate 2/ offered psych referral for alcohol wi thdrawal and support, declines 3/ advised if stops etoh cold turkey can get DT-- will call 911 if this happens or if his abdo pain worsens 4/ ideally would like to re image but he is still drinking and unsure how much a repeat scan would help in this circumstance [facility] Medical History Epidermal cyst of face Tubular adenoma of colon (~2020) Alcoholism LFT elevation Hypertension, essential Serum calcium elevated Hemochromatosis Polycythemia COPD (chronic obstructive pulmonary disease) Surgical History History of right hip replacement History of colonoscopy History of hydrocelectomy History of esophagogastroduodenoscopy (EGD) Family History Father Stroke Mother CVD (cardiovascular disease) Paternal Aunt Smoker Cancer Son Asthma Social History Household Members: Family and Children Housing: House Are you a primary post acute care nurse practitioner to a significant other at home: No Do you presently have visiting nurse or other home services: No Unable to assess alcohol history related to: Refusing to respond Alcohol intake: current Alcohol intake frequency: 3 or more drinks per day Alcohol type: beer Patient Tobacco Use Status: Current everyday Tobacco user Tobacco use type: Cigarette Cigarette Packs Per Day: 1.5 Cigarettes Per Day: 30.0 Years Smoked: (onset 16yo, 1.5ppd x 40yrs, 50+pyh) e-Cigarette/Vaping Use: Never Used Substance Use Type: Marijuana service: No Current occupational status: employed 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 Cognitive needs: No Hearing needs: No Vision needs: Yes Assessment & Plan Assessment & Plan (1) Acute alcoholic pancreatitis: Code(s): K85.20 - Alcohol induced acute pancreatitis without necrosis or infection Qualifiers: Acute pancreatitis complication: no infection or necrosis Qualified Code(s): K85.20 - Alcohol induced acute pancreatitis without necrosis or infection Plan: PLAN: 1/ PPI and carafate 2/ offered psych referral for alcohol withdrawal and support, declines 3/ advised if stops etoh cold turkey can get DT-- will call 911 if this happens or if his abdo pain worsens 4/ ideally would like to re image but he is still drinking and unsure how much a repeat scan would help in this circumstance Medications: New pantoprazole 40 mg PO DAILY 90 tabs 1RF sucralfate swish in mouth and swallow; use after food/drink 10 mL PO QID 1,000 mL 2RF pantoprazole 40 mg PO DAILY 90 tabs 1RF sucralfate swish in mouth and swallow; use after food/drink 10 mL PO QID 1,000 mL 2RF thiamine HCl (vitamin B1) 500 mg (2 x 250 mg) PO DAILY 90 tabs 3RF Coding Level of Care Code Est Pt Level 3 (77161) Diagnoses Alcohol-induced acute pancreatitis without infection or necrosis K85.20 Acute pancreatitis complication: no infection or necrosis
== END 2023-11-20 13:09 | disposition home or self-care (01) ==
PROVIDERS: PCP Internal Medicine; Visit Provider Internal Medicine Gastroenterology
DX: K85.20 Alcohol induced acute pancreatitis without necrosis or infection (principal)
CPT/HCPCS: 99213

== ENCOUNTER → 2023-11-20 12:19 | Outpatient (BNVA) | payer BC, SELFPAY | PROVIDERS: PCP Internal Medicine; Visit Provider Internal Medicine Gastroenterology ==

== ENCOUNTER 2023-12-11 07:52 | Outpatient (AMB) | payer BC, SELFPAY ==
[2023-12-11 07:56] VITALS: BP 112/70; PULSE 80; O2SAT 93; BMI 25.8
--- NOTE | 2023-12-11 07:56 | MHC.PC.OV ---
Vital Signs 12/11/23 07:56 Height 5 ft 7 in Weight 165 lb BMI 25.8 BP 112/70 Blood Pressure Location Rt brachial Position Sitting Pulse 80 Pulse Source Pulse Oximeter Pulse Oximetry (%) 93 Oxygen Delivery Method Room Air Intake Visit Reasons: swelling in belt line ~ Allergies chlorthalidone Adverse Reaction (Severe, Verified 12/11/23 07:58) stomach upset nicotine Adverse Reaction (Verified 12/11/23 07:58) Redness of Skin Medication List - Last Reconciled 12/11/23 by James Eden MD amlodipine 10 mg PO DAILY pantoprazole 40 mg PO DAILY sucralfate 10 mL PO QID thiamine HCl (vitamin B1) 500 mg (2 x 250 mg) PO DAILY tiotropium bromide 2.5 mcg/actuation (Spiriva Respimat) 2 puffs inhalation DAILY Tobacco use date assessed: 12/11/23 Dental Screening Dental Screen Date: 12/11/23 Did you have a dental visit in the last 12 months?: No Was dental information given to patient?: Patient has dentist HPI swelling in belt line ~ HPI Details Patient is a 58-year-old gentleman came in today to be evaluated for lump left groin That he noticed 2 weeks ago and gets worse when he coughs 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 I have explained the finding to patient, and I have placed a referral to General surgery for further management Continue to drink heavily and smoke He is seeing Dr. Sethi for severe COPD, he has chronic smoker's cough Dr. Dean for polycythemia and hemochromatosis He is HETEROZYGOUS FOR THE H63D MUTATION. Blood pressure is stable patient is amlodipine 10 mg PCP office. September he was diagnosed with splenic vein thrombosis He just had a visit with Gastroenterology Dr. Velásquez November 20 2023 Note reviewed Carafate was added, repeat imaging was not added as patient continued to drink heavily He was adviseded to stop drinking again [facility] Medical History COPD (chronic obstructive pulmonary disease) with emphysema Smoker unmotivated to quit Epidermal cyst of face Tubular adenoma of colon (~2020) Alcoholism LFT elevation Hypertension, essential Serum calcium elevated Hemochromatosis Polycythemia COPD (chronic obstructive pulmonary disease) Surgical History History of right hip replacement History of colonoscopy History of hydrocelectomy History of esophagogastroduodenoscopy (EGD) Family History (Updated 12/11/23 @ 07:59 by Gladys Salmeron CMA) Father Stroke Mother CVD (cardiovascular disease) Paternal Aunt Smoker Cancer Son Asthma Social History Household Members: Family and Children Housing: House Are you a primary hospice care transitions coordinator to a significant other at home: No Do you presently have visiting nurse or other home services: No Unable to assess alcohol history related to: Refusing to respond Alcohol intake: current Alcohol intake frequency: 3 or more drinks per day Alcohol type: beer Patient Tobacco Use Status: Current everyday Tobacco user Tobacco use type: Cigarette Cigarette Packs Per Day: 1.5 Cigarettes Per Day: 30.0 Years Smoked: (onset 16yo, 1.5ppd x 40yrs, 50+pyh) Packs Per Year: 0 Packs per year/per ci.00 e-Cigarette/Vaping Use: Never Used Substance Use Type: Marijuana service: No Current occupational status: employed 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 1. Little interest or pleasure in doing things: not at all 2. Feeling down, depressed, or hopeless: not at all 3. Trouble falling or staying asleep, or sleeping too much: not at all 4. Feeling tired or having little energy: not at all 5. Poor appetite or overeating: not at all 6. Feeling bad about yourself - or that you are a failure or have let yourself or your family down: not at all 7. Trouble concentrating on things, such as reading the newspaper or watching television: not at all 8. Moving or speaking so slowly that other people could have noticed. Or the opposite - being so fidgety or restless that you have been moving around a lot more than usual: not at all 9. Thoughts that you would be better off or of hurting yourself in some way: not at all Total score: 0 Depression Screening Interpretation: Negative Depression Screening Done: Yes 37699 - PHQ-9 Billing: Yes Source: Developed by Drs. Efraín Leonard, Becky Cuevas, Maykel Parekh and colleagues, with an educational karen from [employer]. Thrive Questionnaire Date Thrive assessed: 10/20/23 AUDIT C Alcohol Use Questionnaire (AUDIT-C) 1. How often do you have a drink containing alcohol?: 4 or more times a week 2. How many drinks containing alcohol do you have on a typical day when you are drinking?: 3 or 4 3. How often do you have six or more drinks on one occasion?: Never Total Score: 5 Score Reviewed/Action Taken: Yes GENIA-7 AMB Questionnaire GENIA-7 Date GENIA - 7 assessed: 12/11/23 Feeling nervous, anxious, or on edge: 0 = Not at all Not being able to stop or control worryin = Not at all Worrying too much about different things: 0 = Not at all Trouble relaxin = Not at all Being so restless that it is hard to sit still: 0 = Not at all Becoming easily annoyed or irritable: 0 = Not at all Feeling afraid as if something awful might happen: 0 = Not at all Total GENIA-7 score (0-4 normal; 5-9 mild; 10-14 moderate; 15-21 severe): 0 Source: Developed by Drs. Efraín Leonard, Becky Cuevas, Maykel Parekh and colleagues, with an educational karen from [employer]. GENIA-7 Assessment Billing GENIA-7 Assessment Tool: GENIA-7 Assessment 79275 Review of Systems Const Denies chills and Denies fever(s) ENT Denies epistaxis and Denies nasal discharge Card Denies chest pain Resp Denies hemoptysis GI Denies diarrhea and Denies nausea Skin/Breast Denies rash Neuro Reports no additional complaints Psych Reports no additional complaints Endo Reports no additional complaints Physical exam (Primary Care) Vital Signs: Last Vital Signs Pulse 80 12/11/23 07:56 BP 112/70 12/11/23 07:56 Pulse Ox 93 12/11/23 07:56 Oxygen Delivery Method Room Air 12/11/23 07:56 BMI result Body Mass Index 25.8 Tobacco/Smoking Status: Tobacco use Status Tobacco use date assessed 12/11/23 12/11/23 07:59 Patient Tobacco Use Status Current everyday Tobacco 12/11/23 07:59 Tobacco use type Cigarette 12/11/23 07:59 e-Cigarette/Vaping Use Never Used 12/11/23 07:59 PHQ-9: PHQ-9 Score PHQ-9: Total score 0 12/11/23 08:14 Depression Screening Interpretation: Negative Thrive Assessment: Date of Thrive Assessment Date Thrive assessed 10/20/23 12/11/23 07:59 Const General: cooperative, comfortable and no acute distress Orientation/consciousness: patient oriented x3 HENMT Head: Yes normocephalic Resp Effort & Inspection: normal respiratory effort and no stridor Cardio Rhythm: regular rhythm Heart sounds: S1 normal heart sound present and S2 normal heart sound present Male genitals images: 1. Large bulge, without any pain, reducible Skin General skin exam: turgor normal Neuro General: patient oriented x3, tone normal and moves all extremities Assessment and Plan Assessment & Plan (1) Left inguinal hernia: Code(s): K40.90 - Unilateral inguinal hernia, without obstruction or gangrene, not specified as recurrent (2) Hyponatremia: Code(s): E87.1 - Hypo-osmolality and hyponatremia (3) Alcohol abuse: Code(s): F10.10 - Alcohol abuse, uncomplicated (4) Hypertension, essential: Code(s): I10 - Essential (primary) hypertension (5) Hemochromatosis: Code(s): E83.119 - Hemochromatosis, unspecified Qualifiers: Hemochromatosis type: hereditary Qualified Code(s): E83.110 - Hereditary hemochromatosis (6) COPD (chronic obstructive pulmonary disease): Comment: He has mild to moderate degree of obstructive airway disorder, It is remaining relatively stable. Intermittent cough is mainly related to smoking. [place] : Continue to use Spiriva Respimat 2.5 mg 2 inhalations daily. ProAir HFA 2 puffs Q 4-6 hours p.r.n. 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 I have explained the finding to patient, and I have placed a referral to General surgery for further management Continue to drink heavily and smoke He is seeing Dr. Sethi for severe COPD, he has chronic smoker's cough Dr. Dean for polycythemia and hemochromatosis He is HETEROZYGOUS FOR THE H63D MUTATION. Blood pressure is stable patient is amlodipine 10 mg PCP office. Patient have chronic hyponatremia September he was diagnosed with splenic vein thrombosis He just had a visit with Gastroenterology Dr. Velásquez November 20 2023 Note reviewed Carafate was added, repeat imaging was not added as patient continued to drink heavily He was adviseded to stop drinking again Orders: Orders Complete Blood Count Auto Diff Today E83.119 - Hemochromatosis, unspecified, E87.1 - Hypo-osmolality and hyponatremia, E88.09 - Other disorders of plasma-protein metabolism, not elsewhere classified, F10.10 - Alcohol abuse, uncomplicated, I10 - Essential (primary) hypertension, J44.9 - Chronic obstructive pulmonary disease, unspecified Comprehensive Met. Panel Today E83.119 - Hemochromatosis, unspecified, E87.1 - Hypo-osmolality and hyponatremia, E88.09 - Other disorders of plasma-protein metabolism, not elsewhere classified, F10.10 - Alcohol abuse, uncomplicated, I10 - Essential (primary) hypertension, J44.9 - Chronic obstructive pulmonary disease, unspecified TSH reflex Free T4 Today E83.119 - Hemochromatosis, unspecified, E87.1 - Hypo-osmolality and hyponatremia, E88.09 - Other disorders of plasma-protein metabolism, not elsewhere classified, F10.10 - Alcohol abuse, uncomplicated, I10 - Essential (primary) hypertension, J44.9 - Chronic obstructive pulmonary disease, unspecified Amylase Today I82.890 - Acute embolism and thrombosis of other specified veins Lipase Today I82.890 - Acute embolism and thrombosis of other specified veins Referrals General Surgery Referral K40.90 - Unilateral inguinal hernia, without obstruction or gangrene, not specified as recurrent Coding Level of Care Code Est Pt Level 4 (52286) Diagnoses Left inguinal hernia K40.90 Hyponatremia E87.1 Alcohol abuse F10.10 Hypertension, essential I10 Hereditary hemochromatosis E83.110 Hemochromatosis type: hereditary Panlobular emphysema J43.1 COPD type: emphysema Emphysema type: panlobular Hypoalbuminemia E88.09 Splenic vein thrombosis I82.890 Additional Codes GENIA-7 Assessment Billing - GENIA-7 Assessment Tool: GENIA-7 Assessment [id number] ([id number])
== END 2023-12-11 08:23 | disposition home or self-care (01) ==
PROVIDERS: PCP Internal Medicine; Visit Provider Internal Medicine
DX: K40.90 Unilateral inguinal hernia, without obstruction or gangrene, not specified as recurrent (principal); E83.110 Hereditary hemochromatosis; J43.1 Panlobular emphysema; Z68.25 Body mass index [BMI] 25.0-25.9, adult; E87.1 Hypo-osmolality and hyponatremia; F10.10 Alcohol abuse, uncomplicated; I10 Essential (primary) hypertension; E88.09 Other disorders of plasma-protein metabolism, not elsewhere classified; I82.890 Acute embolism and thrombosis of other specified veins
CPT/HCPCS: 99214

== ENCOUNTER 2023-12-28 09:04 | Outpatient (AMB) | payer BC, SELFPAY ==
--- NOTE | 2023-12-28 09:20 | A.OFFVIS_ITS ---
Intake Vital Signs 12/28/23 09:23 Height 5 ft 7 in Weight 165 lb BMI 25.8 BP 112/70 Blood Pressure Location Rt brachial Position Sitting Pulse 80 Intake Visit Reasons: Unilateral inguinal hernia Intake Note: Patient referred by PCP Dr. Eden for Unilateral iguinal hernia. Present for ? Patient c/o: pain, discomfort [employer] [place] Required: No Accompanied by: Self / Same As Patient Allergies chlorthalidone Adverse Reaction (Severe, Verified 12/28/23 09:21) stomach upset nicotine Adverse Reaction (Verified 12/28/23 09:21) Redness of Skin HPI HPI Comments History of Present Illness Details Patient presents for evaluation of a very large symptomatic left inguinal hernia. He has had this several weeks time. He does heavy lifting at work and is unsure if that is where this initially happened. He is otherwise tolerating his diet. In no other GI issues or complaints. Patient has a very significant smoking history of 1-1/2 packs per day for over 40 years. Chart was reviewed and patient evaluated. ETOH history. Nicotine dependence. Hemochromatosis, polycythemia, COPD, hypertension [facility] Medical History COPD (chronic obstructive pulmonary disease) with emphysema Smoker unmotivated to quit Epidermal cyst of face Tubular adenoma of colon (~2020) Alcoholism LFT elevation Hypertension, essential Serum calcium elevated Hemochromatosis Polycythemia COPD (chronic obstructive pulmonary disease) Surgical History History of right hip replacement History of colonoscopy History of hydrocelectomy History of esophagogastroduodenoscopy (EGD) Family History Father Stroke Mother CVD (cardiovascular disease) Paternal Aunt Smoker Cancer Son Asthma Social History Household Members: Family and Children Housing: House Are you a primary pharmacy customer care specialist to a significant other at home: No Do you presently have visiting nurse or other home services: No Unable to assess alcohol history related to: Refusing to respond Alcohol intake: current Alcohol intake frequency: 3 or more drinks per day Alcohol type: beer Patient Tobacco Use Status: Current everyday Tobacco user Tobacco use type: Cigarette Cigarette Packs Per Day: 1.5 Cigarettes Per Day: 30.0 Years Smoked: (onset 16yo, 1.5ppd x 40yrs, 50+pyh) e-Cigarette/Vaping Use: Never Used Substance Use Type: Marijuana service: No Current occupational status: employed 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 Abdomen is soft. Approximately 3 cm reducible umbilical hernia. Right groin negative. Genitalia within normal limits. Very large left inguinal hernia. Assessment & Plan Assessment & Plan (1) Left inguinal hernia: Code(s): K40.90 - Unilateral inguinal hernia, without obstruction or gangrene, not specified as recurrent (2) Umbilical hernia: Code(s): K42.9 - Umbilical hernia without obstruction or gangrene Plan I discussed the patient the findings of both and umbilical hernia and left inguinal hernia. My suggestion is to undergo repair of both of these at the same sitting. Risks, benefits, alternatives of umbilical hernia repair open technique with mesh and open left inguinal hernia repair with mesh were reviewed with the patient and included but not limited to bleeding, infection, recurrence, numbness, pain, scarring the patient wished to proceed. All questions answered. Arrangements were made for this. In the meantime, patient is encouraged to minimize or discontinue smoking. Coding Level of Care Code New Pt Level 5 (27597) Diagnoses Left inguinal hernia K40.90 Umbilical hernia K42.9
[2023-12-28 09:23] VITALS: BP 112/70; PULSE 80; BMI 25.8
== END 2023-12-28 09:25 | disposition home or self-care (01) ==
PROVIDERS: PCP Internal Medicine; Referring Provider Internal Medicine; Visit Provider Surgery
DX: K40.90 Unilateral inguinal hernia, without obstruction or gangrene, not specified as recurrent (principal); K42.9 Umbilical hernia without obstruction or gangrene
CPT/HCPCS: 99204

== ENCOUNTER → 2023-12-28 09:04 | Outpatient (BNVA) | payer BC, SELFPAY | PROVIDERS: PCP Internal Medicine; Referring Provider Internal Medicine; Visit Provider Surgery ==

== ENCOUNTER 2024-01-01 12:04 | Outpatient (AMB) | payer BC, SELFPAY ==
--- NOTE | 2024-01-01 12:17 | A.OFFVIS_ITS ---
Intake Vital Signs 01/01/24 12:19 Height 5 ft 7 in Weight 166 lb BMI 26.0 BP 138/78 Blood Pressure Location Lt brachial Position Sitting Pulse 62 Intake Visit Reasons: 8 week follow up Intake Note: Patient follow up for swallowing problems. Patient denies any GI issues, med is helping him for his swallowing problems. 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 Accompanied by: Spouse Allergies chlorthalidone Adverse Reaction (Severe, Verified 01/01/24 12:17) stomach upset nicotine Adverse Reaction (Verified 01/01/24 12:17) Redness of Skin HPI 8 week follow up HPI Details 58-year-old male with underlying history of COPD, erythrocytosis, active tobacco use disorder, hypertension and alcoholic pancreatitis (last admitted 2 years ago 10/21/2021) who I am seeing for f/u RECAP: seen for i/p assessment for pancreatitis and splenic vein occlusion 09/2023 Patient had noted few days of severe non radiating epigastric pain 8/10 in severity without any relieving factors but worse with food. He admitted to drinking 6 pack of beer daily for years. He has had similar pain due to pancreatitis in the past but says this is not as bad. He also noted nausea, and non bloody vomiting. H Labs: mild raised lipase, nml HGB CT: severe pancreatitis with peripancreatic edema, multiple pancreatic cysts and splenic vein occlusion INTERIM: he conts to drink beer and mony, and smoking denies any abdominal pain, nausea or vomiting no diarrhea or melena no dysphagia EXAM: GENERAL: The patient is dishevelled VITAL SIGNS:see workflow HEENT: Nonicteric sclerae, PERRLA, EOMI. Oropharynx clear. Moist mucous membranes. Conjunctivae appear well perfused. No thyroid mass. CHEST: Chest wall is nontender. HEART: Regular rate and rhythm without murmurs. LUNGS: Clear to auscultation bilaterally. ABDOMEN: Soft, positive bowel sounds, tender epigastrium, no organomegaly.no flank tenderness--left inguinal hernia, small umbilical hernia SKIN: No rash, no excessive bruising, petechiae, or purpura. NEUROLOGIC: Cranial nerves II-XII intact without motor/sensory deficit. A/P: 1/ Severe alcoholic pancreatitis, stable , still drinking 2/ epigastric tenderness on PPI 3/ alcohol abuse, ongoing drinking and s moking PLAN: 1/ PPI and carafate as before 2/ offered psych referral for alcohol wi thdrawal and support, declines 3/ CT pancreas protocol 4/ ok to have hernia surgery, nml HGB, p lts and INR, LFT are ok PFSH Medical History COPD (chronic obstructive pulmonary disease) with emphysema Smoker unmotivated to quit Epidermal cyst of face Tubular adenoma of colon (~2020) Alcoholism LFT elevation Hypertension, essential Serum calcium elevated Hemochromatosis Polycythemia COPD (chronic obstructive pulmonary disease) Surgical History History of right hip replacement History of colonoscopy History of hydrocelectomy History of esophagogastroduodenoscopy (EGD) Family History Father Stroke Mother CVD (cardiovascular disease) Paternal Aunt Smoker Cancer Son Asthma Social History Household Members: Family and Children Housing: House Are you a primary direct support professional caregiver to a significant other at home: No Do you presently have visiting nurse or other home services: No Unable to assess alcohol history related to: Refusing to respond Alcohol intake: current Alcohol intake frequency: 3 or more drinks per day [place] type: beer Patient Tobacco Use Status: Current everyday Tobacco user Tobacco use type: Cigarette Cigarette Packs Per Day: 1.5 Cigarettes Per Day: 30.0 Years Smoked: (onset 16yo, 1.5ppd x 40yrs, 50+pyh) e-Cigarette/Vaping Use: Never Used Substance Use Type: Marijuana service: No Current occupational status: employed 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 Cognitive needs: No Hearing needs: No Vision needs: Yes Physical Exam Vital Signs: Last Vital Signs Pulse 62 01/01/24 12:19 BP 138/78 01/01/24 12:19 BMI result Body Mass Index 26.0 Assessment & Plan Assessment & Plan (1) Acute alcoholic pancreatitis: Code(s): K85.20 - Alcohol induced acute pancreatitis without necrosis or infection Qualifiers: Acute pancreatitis complication: no infection or necrosis Qualified Code(s): K85.20 - Alcohol induced acute pancreatitis without necrosis or infection Plan: see above (2) Splenic vein thrombosis: Code(s): I82.890 - Acute embolism and thrombosis of other specified veins Plan: see above Orders: Orders CT abdomen w IV con Today I82.890 - Acute embolism and thrombosis of other specified veins, K85.20 - Alcohol induced acute pancreatitis without necrosis or infection Coding Level of Care Code Est Pt Level 3 (62225) Diagnoses Alcohol-induced acute pancreatitis without infection or necrosis K85.20 Acute pancreatitis complication: no infection or necrosis Splenic vein thrombosis I82.890
[2024-01-01 12:19] VITALS: BP 138/78; PULSE 62; BMI 26.0
== END 2024-01-01 12:38 | disposition home or self-care (01) ==
PROVIDERS: PCP Internal Medicine; Referring Provider Internal Medicine; Visit Provider Internal Medicine Gastroenterology
DX: K85.20 Alcohol induced acute pancreatitis without necrosis or infection (principal); I82.890 Acute embolism and thrombosis of other specified veins
CPT/HCPCS: 99213

== ENCOUNTER → 2024-01-01 12:04 | Outpatient (BNVA) | payer BC, SELFPAY | PROVIDERS: PCP Internal Medicine; Visit Provider Internal Medicine Gastroenterology ==

== ENCOUNTER 2024-01-13 11:42 | Outpatient (AMB) | payer BC, SELFPAY ==
[2024-01-13 11:52] VITALS: BP 128/70; PULSE 83; O2SAT 97; BMI 25.8
--- NOTE | 2024-01-13 11:52 | MHC.PC.OV ---
Vital Signs 01/13/24 11:52 Height 5 ft 7 in Weight 165 lb BMI 25.8 BP 128/70 Blood Pressure Location Lt brachial Position Sitting Pulse 83 Pulse Source Pulse Oximeter Pulse Oximetry (%) 97 Oxygen Delivery Method Room Air Intake Visit Reasons: Hernia Repair~ Allergies chlorthalidone Adverse Reaction (Severe, Verified 01/13/24 11:55) stomach upset nicotine Adverse Reaction (Verified 01/13/24 11:55) Redness of Skin Medication List - Last Reconciled 01/13/24 by James Eden MD amlodipine 10 mg PO DAILY pantoprazole 40 mg PO DAILY sucralfate 10 mL PO QID thiamine HCl (vitamin B1) 500 mg (2 x 250 mg) PO DAILY tiotropium bromide 2.5 mcg/actuation (Spiriva Respimat) 2 puffs inhalation DAILY Tobacco use date assessed: 01/13/24 Dental Screening Dental Screen Date: 01/13/24 Did you have a dental visit in the last 12 months?: No Did you have a dental problem in the last 6 months where you did not have access to dental care?: No Was dental information given to patient?: No HPI Hernia Repair~ HPI Details Patient is a 58-year-old gentleman came in today for preop clearance for hernia repair Continued to smoke in spite multiple discussions His ferritin level has improved to 586, patient had hematology consultation 12/28/2023 [facility] Notes reviewed, phlebotomy was not recommended however Baby aspirin daily was recommended. Patient also advised to stop drinking alcohol Blood pressure is stable Cardiac history negative EKG done today shows normal sinus rhythm with heart rate of 52 beats per minute No acute findings Offer no complaints, no shortness a breath no cough No nausea vomiting diarrhea no fever no chills Patient is stable for hernia appears surgery [facility] Medical History COPD (chronic obstructive pulmonary disease) with emphysema Smoker unmotivated to quit Epidermal cyst of face Tubular adenoma of colon (~2020) Alcoholism LFT elevation Hypertension, essential Serum calcium elevated Hemochromatosis Polycythemia COPD (chronic obstructive pulmonary disease) Surgical History History of right hip replacement History of colonoscopy History of hydrocelectomy History of esophagogastroduodenoscopy (EGD) Family History Father Stroke Mother CVD (cardiovascular disease) Paternal Aunt Smoker Cancer Son Asthma Social History Household Members: Family and Children Housing: House Are you a primary daycare manager to a significant other at home: No Do you presently have visiting nurse or other home services: No Unable to assess alcohol history related to: Refusing to respond Alcohol intake: current Alcohol intake frequency: 3 or more drinks per day Alcohol type: beer Patient Tobacco Use Status: Current everyday Tobacco user Tobacco use type: Cigarette Cigarette Packs Per Day: 1.5 Cigarettes Per Day: 30.0 Years Smoked: (onset 16yo, 1.5ppd x 40yrs, 50+pyh) Packs Per Year: 0 Packs per year/per ci.00 e-Cigarette/Vaping Use: Never Used Substance Use Type: Marijuana service: No Current occupational status: employed 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 1. Little interest or pleasure in doing things: not at all 2. Feeling down, depressed, or hopeless: not at all 3. Trouble falling or staying asleep, or sleeping too much: not at all 4. Feeling tired or having little energy: not at all 5. Poor appetite or overeating: not at all 6. Feeling bad about yourself - or that you are a failure or have let yourself or your family down: not at all 7. Trouble concentrating on things, such as reading the newspaper or watching television: not at all 8. Moving or speaking so slowly that other people could have noticed. Or the opposite - being so fidgety or restless that you have been moving around a lot more than usual: not at all 9. Thoughts that you would be better off or of hurting yourself in some way: not at all Total score: 0 Depression Screening Interpretation: Negative Depression Screening Done: Yes 64627 - PHQ-9 Billing: Yes Source: Developed by Drs. Efraín Leonard, Becky B.W. Maykel Cuevas and colleagues, with an educational karen from [employer]. Thrive Questionnaire Date Thrive assessed: 01/13/24 I am a: Patient What is your living situation today?: I have a steady place to live Within the past 12 months, did the food you bought not last and you didn't have the money to get more?: Never true Within the past 12 months, did you worry whether your food would run out before you got money to buy more?: Never true Do you have trouble paying for medicines?: No Do you have trouble getting transportation to medical appointments?: No Do you have trouble paying your heating and electricity bill?: No Do you have trouble taking care of your child, family member or friend?: No Do you have trouble with day-to-day activities such as bathing, preparing meals, shopping, managing finances, etc.?: No Are you currently unemployed and looking for a job?: No Are you interested in more education?: No Please select the resources that you would like help with: None Currently or been in a relationship where the following occur: no concerns reported THRIVE Score: 0 GENIA-7 AMB Questionnaire GENIA-7 Date GENIA - 7 assessed: 01/13/24 Feeling nervous, anxious, or on edge: 0 = Not at all Not being able to stop or control worryin = Not at all Worrying too much about different things: 0 = Not at all Trouble relaxin = Not at all Being so restless that it is hard to sit still: 0 = Not at all Becoming easily annoyed or irritable: 0 = Not at all Feeling afraid as if something awful might happen: 0 = Not at all Total GENIA-7 score (0-4 normal; 5-9 mild; 10-14 moderate; 15-21 severe): 0 Source: Developed by Drs. Efraín Leonard, Maykel Alvarez and colleagues, with an educational karen from [employer]. GENIA-7 Assessment Billing GENIA-7 Assessment Tool: GENIA-7 Assessment 03662 Review of Systems Const Denies chills and Denies fever(s) ENT Denies epistaxis and Denies nasal discharge Card Denies chest pain Resp Denies chest congestion, Denies cough and Denies hemoptysis GI Denies diarrhea and Denies nausea Skin/Breast Denies rash Neuro Reports no additional complaints Psych Reports no additional complaints Endo Reports no additional complaints Physical exam (Primary Care) Vital Signs: Last Vital Signs Pulse 83 01/13/24 11:52 BP 128/70 01/13/24 11:52 Pulse Ox 97 01/13/24 11:52 Oxygen Delivery Method Room Air 01/13/24 11:52 BMI result Body Mass Index 25.8 Tobacco/Smoking Status: Tobacco use Status Tobacco use date assessed 01/13/24 01/13/24 11:56 Patient Tobacco Use Status Current everyday Tobacco 01/13/24 11:56 Tobacco use type Cigarette 01/13/24 11:56 e-Cigarette/Vaping Use Never Used 01/13/24 11:56 PHQ-9: PHQ-9 Score PHQ-9: Total score 0 01/13/24 12:15 Depression Screening Interpretation: Negative Thrive Assessment: Date of Thrive Assessment Date Thrive assessed 01/13/24 01/13/24 12:15 Currently or been in a relationship where the following occur: no concerns reported Const General: cooperative, comfortable and no acute distress Orientation/consciousness: patient oriented x3 HENMT Head: Yes normocephalic Eyes General: appearance normal, both eyes and all related structures Neck Neck: Yes supple Resp Effort & Inspection: normal respiratory effort, no cough and no stridor Cardio Rhythm: regular rhythm Heart sounds: S1 normal heart sound present and S2 normal heart sound present Skin General skin exam: turgor normal Neuro General: patient oriented x3, tone normal and moves all extremities Extrem Right lower extremity: no edema Left lower extremity: no edema Assessment and Plan Assessment & Plan (1) Left inguinal hernia: Code(s): K40.90 - Unilateral inguinal hernia, without obstruction or gangrene, not specified as recurrent (2) Hemochromatosis: Code(s): E83.119 - Hemochromatosis, unspecified Qualifiers: Hemochromatosis type: hereditary Qualified Code(s): E83.110 - Hereditary hemochromatosis Plan Patient is a 58-year-old gentleman came in today for preop clearance for hernia repair Continued to smoke in spite multiple discussions His ferritin level has improved to 586, patient had hematology consultation 12/28/2023 [facility] Notes reviewed, phlebotomy was not recommended however Baby aspirin daily was recommended. Patient also advised to stop drinking alcohol Blood pressure is stable Cardiac history negative EKG done today shows normal sinus rhythm with heart rate of 52 beats per minute No acute findings Offer no complaints, no shortness a breath no cough No nausea vomiting diarrhea no fever no chills Patient is stable for hernia appears surgery Coding Level of Care Code Est Pt Level 4 (92282) Diagnoses Left inguinal hernia K40.90 Hereditary hemochromatosis E83.110 Hemochromatosis type: hereditary Additional Codes GENIA-7 Assessment Billing - GENIA-7 Assessment Tool: GENIA-7 Assessment 45049 ([id number])
== END 2024-01-13 13:15 | disposition home or self-care (01) ==
PROVIDERS: PCP Internal Medicine; Visit Provider Internal Medicine
DX: K40.90 Unilateral inguinal hernia, without obstruction or gangrene, not specified as recurrent (principal); E83.110 Hereditary hemochromatosis
CPT/HCPCS: 99214

== ENCOUNTER 2024-01-22 11:21 | Outpatient (REF) | payer BC, SELFPAY ==
--- NOTE | ~2024-01-22 | CT_ITS ---
EXAMINATION: CT ABDOMEN WITHOUT AND WITH CONTRAST CLINICAL INFORMATION: Acute embolism and thrombosis of other specified veins. Alcohol abuse and splenic vein thrombus. COMPARISON: Previous CT of the abdomen and pelvis most recent September 2023 TECHNIQUE: Contiguous axial thin section helical images of the abdomen were performed before and after the administration of oral contrast and 85 mL of Omnipaque 350 intravenous contrast. Arterial and portal phase imaging performed. The data set was reformatted in the coronal and sagittal planes and reviewed on an independent workstation. This CT examination was performed using dose optimization techniques as appropriate, variously including the following: *Automated exposure control *Adjustment of mA and/or kV according to patient size (this includes techniques or standardized protocols for targeted exams where dose is matched to indication/reason for exam; i.e. extremities or head) *Use of iterative reconstruction technique DLP: 511 mGy-cm FINDINGS: LUNG BASES: The lung bases are clear. LIVER, GALLBLADDER, AND BILIARY TREE: There is fatty infiltration of the liver. The liver is otherwise normal. The gallbladder is normal. There is no biliary duct dilatation. PANCREAS: There is interval decrease in size in the cyst in or adjacent to the head of the pancreas extending into the periportal region. This measures 3 cm compared to 5.6 x 7.3 cm September 2023 exam. There is a new cyst in and superior to the junction of the body and tail of the pancreas measuring 1.5 cm x 1.5 x 3.5 cm. There is new dilatation of the main pancreatic duct in the tail of the pancreas. SPLEEN: Normal ADRENAL GLANDS AND KIDNEYS: Normal BOWEL LOOPS: There is question of mild fold thickening of the proximal stomach. The stomach and visualized bowel otherwise normal. The appendix is normal. LYMPH NODES: Normal. There is a small umbilical hernia containing fat. There is no ascites. VASCULAR: The splenic vein is still occluded. There are increasing perigastric and splenic varices. The main portal vein and right and left portal veins are patent. Atherosclerotic disease. Vascular structures are otherwise unremarkable. BONES: Degenerative changes of the spine. CT/CT abdomen wo/w IV con IMPRESSION: Splenic vein is still occluded. Increasing perigastric and perisplenic varices. Interval decrease in the cyst in or adjacent to the head of the pancreas extending to the periportal region measuring 3 cm. New cyst in and superior to the junction of the body and tail of the pancreas measuring 2 1.5 x 1.5 x 3.5 cm and dilatation of the main pancreatic duct in the tail of the pancreas. Fleischner guidelines were followed.
[2024-01-22] MEDS: iohexoL 350 MG/ML 100 ML INFUS..BTL 85 ML IV (11:53)
== END 2024-01-22 11:22 | disposition home or self-care (01) ==
LOC: HO.CT 11:21
PROVIDERS: PCP Internal Medicine; Visit Provider Internal Medicine Gastroenterology
DX: I82.890 Acute embolism and thrombosis of other specified veins (principal); K85.20 Alcohol induced acute pancreatitis without necrosis or infection
CPT/HCPCS: 74170; Q9967

== ENCOUNTER 2024-01-29 06:07 | Day surgery (SDC) | payer BC, SELFPAY ==
[2024-01-15 13:59] VITALS: BP 119/75; PULSE 61; RESP 20; O2SAT 97; BMI 26.2
--- NOTE | 2024-01-15 14:11 | HO.ANESPROP2 ---
Documented by User: Bre Chaudhry NP 01/28/24 11:01 HPI - Anesthesia Eval Consult details Narrative: 58yo M for Open Hernia Inguinal Reducible with mesh, Open Hernia Umbilical Reducible with mesh, 01/29/24 Medically optimized by PCP No recent illness No CP. Baseline DUPREE. 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 Tx with bowel rest, pain control and hydration. No antithrombotics for splenic vein occlusion. Following with Dr Velásquez, preop CT scan. Awaiting preop rec's via workload. Per Dr Velásquez [Cleared}...the varices are around the stomach and upper gi, major issue will be alcohol withdrawal and abuse COPD/Smoker: follows [facility] pulmo. Last office visit 07/2023. Spiriva, no rescue inhaler +ETOH: 4-5 beers + mony daily. Advised to gradually decrease days preop, but not quit cold turkey d/t high risk of withdrawal symptoms. GERD: ppi daily controls Polycythemia: follows [facility] [place] heme, normalized H&H without therapeutic phlebs Case reviewed with Dr Isabella AGUILAR Active Problems Active Problems: All Active Problems (Updated 01/15/24 @ 13:59 by Michaelle Bustamante, TALIB) Umbilical hernia (Acute) Left inguinal hernia (Acute) Hypoalbuminemia (Acute) Uncontrolled hypertension (Acute) Splenic vein thrombosis (Acute) Acute alcoholic pancreatitis (Acute) Hyponatremia (Acute) Encounter for general adult medical examination with abnormal findings (Acute) Facial abscess (Acute) Pain, joint, hip, right (Acute) Alcohol abuse (Acute) Nicotine dependence, cigarettes, uncomplicated (Acute) Hypomagnesemia (Acute) Laceration of right ring finger (Acute) Colon polyposis (Acute) Epidermal cyst of face (Acute) Hypertension, essential (Acute) COPD (chronic obstructive pulmonary disease) (Acute) Polycythemia (Acute) Hemochromatosis (Acute) Tubular adenoma of colon (Acute ~2020) LFT elevation (Acute) Serum calcium elevated (Acute) Past Medical History Medical History Acute pancreatitis GERD (gastroesophageal reflux disease) Smoker unmotivated to quit Epidermal cyst of face Tubular adenoma of colon (~2020) Alcoholism LFT elevation Hypertension, essential Serum calcium elevated Hemochromatosis Polycythemia COPD (chronic obstructive pulmonary disease) Family History Family History Father Stroke Mother CVD (cardiovascular disease) Paternal Aunt Smoker Cancer Son Asthma Family history of problems with anesthesia: No Surgical History Surgical History History of right hip replacement History of colonoscopy History of hydrocelectomy History of esophagogastroduodenoscopy (EGD) History of Problems with Anesthesia: No Social History Social History Household Members: Family and Children Housing: House Are you a primary care worker to a significant other at home: No Do you presently have visiting nurse or other home services: No Unable to assess alcohol history related to: Refusing to respond Alcohol intake: current Alcohol intake frequency: 3 or more drinks per day Alcohol type: beer Patient Tobacco Use Status: Current everyday Tobacco user Tobacco use type: Cigarette Cigarette Packs Per Day: 1.5 Cigarettes Per Day: 30 Years Smoked: 40 e-Cigarette/Vaping Use: Never Used Use of substances other than those prescribed or required for medical reasons: Yes Substance Use Type: Marijuana Substance Use Type Other:: smokes marijuana-couple of times/week Substance Use Frequency: Weekly Have you been hit, kicked, punched, or otherwise hurt by someone within the past year? 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 Cognitive needs: No Hearing needs: No Vision needs: Yes Meds Allergies Allergy/AdvReac Type Severity Reaction Status Date / Time chlorthalidone AdvReac Severe stomach Verified 01/13/24 11:55 upset nicotine patch AdvReac Intermediate Redness of Uncoded 01/15/24 13:55 Skin Home Medications ?Medication ?Instructions ?Recorded ?Confirmed ?Last Taken ?Type amlodipine 10 mg tablet 10 mg PO QPM 10/19/23 01/15/24 01/29/24 History tiotropium bromide 2.5 2 puff inhalation QPM 10/19/23 01/15/24 01/29/24 History mcg/actuation mist for inhalation (Spiriva Respimat) pantoprazole 40 mg tablet,delayed 40 mg PO QAM 01/15/24 01/15/24 01/29/24 History release thiamine HCl (vitamin B1) 250 mg 250 mg PO 5XD 01/15/24 01/15/24 Unknown History tablet Exam Height,Weight and Vital Signs: Height 5 ft 7 in Weight 75.75 kg Last Vital Signs Pulse 61 01/15/24 13:59 Resp 20 01/15/24 13:59 BP 119/75 01/15/24 13:59 Pulse Ox 97 01/15/24 13:59 O2 Del Method Room Air 01/15/24 13:59 Pertinent Lab Results Pertinent Lab Results: Laboratory Tests 10/19/23 12/28/23 14:43 08:22 WBC 6.4 Hgb 15.4 Hct 44.3 Plt Count 175 D Sodium 136 Potassium 4.0 Chloride 103 Carbon Dioxide 26 BUN 6 L Creatinine 0.69 Magnesium 1.8 Total Bilirubin 1.1 H AST 18 ALT 14 Alkaline Phosphatase 79 Total Protein 7.1 Albumin 3.7 Narrative Narrative: EKG 12/2023 SB @ 51 CT abdomen wo/w IV con 12/2023 IMPRESSION: Splenic vein is still occluded. Increasing perigastric and perisplenic varices. Interval decrease in the cyst in or adjacent to the head of the pancreas extending to the periportal region measuring 3 cm. New cyst in and superior to the junction of the body and tail of the pancreas measuring 2 1.5 x 1.5 x 3.5 cm and dilatation of the main pancreatic duct in the tail of the pancreas. Fleischner guidelines were followed. CT lung screening IMPRESSION: Negative study. Tiny punctate unchanged granuloma. Incidentally noted hepatic steatosis. Airway TM Dist: >3cm Neck ROM: Full Loose/Missing/Broken Teeth: Yes (edentulous) Heart: RRR Lungs: CTAB Assessment and Plan Assessment Anesthesia Assessment: Anesthesia Plan Discussed, Smoking Cess. Discussed and PAT Visit Final Anesthetic Review Family History of Problems with Anesthesia: No History of Problems with Anesthesia: No Documented by User: Radha Newby MD 01/29/24 07:51 HPI - Anesthesia Eval Consult details Narrative: 58yo M for Open repair of Reducible Inguinal Hernia with mesh, Open repair of Reducible Umbilical Hernia with mesh, 01/29/24 Medically optimized by PCP No recent illness No CP. Baseline DUPREE. 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 Tx with bowel rest, pain control and hydration. No antithrombotics for splenic vein occlusion. Following with Dr Velásquez, preop CT scan. Awaiting preop rec's via workload. Per Dr Velásquez [Cleared}...the varices are around the stomach and upper gi, major issue will be alcohol withdrawal and abuse COPD/Smoker: follows [facility] [place] pulmo. Last office visit 07/2023. Spiriva, no rescue inhaler +ETOH: 4-5 beers + mony daily. Advised to gradually decrease days preop, but not quit cold turkey d/t high risk of withdrawal symptoms. GERD: ppi daily controls Polycythemia: follows [facility] [place] heme, normalized H&H without therapeutic phlebs Case reviewed with Dr Isabella AGUILAR Active Problems Active Problems: All Active Problems (Updated 01/29/24 @ 07:11 by Radha Newby MD) Umbilical hernia (Acute) Left inguinal hernia (Acute) Hypoalbuminemia (Acute) Uncontrolled hypertension (Acute) Splenic vein thrombosis (Acute) Acute alcoholic pancreatitis (Acute) Hyponatremia (Acute) Encounter for general adult medical examination with abnormal findings (Acute) Facial abscess (Acute) Pain, joint, hip, right (Acute) Alcohol abuse (Acute)- last drank yesterday 01/28/24 Nicotine dependence, cigarettes, uncomplicated (Acute) Hypomagnesemia (Acute) Laceration of right ring finger (Acute) Colon polyposis (Acute) Epidermal cyst of face (Acute) Hypertension, essential (Acute) COPD (chronic obstructive pulmonary disease) (Acute) Polycythemia (Acute) Hemochromatosis (Acute) Tubular adenoma of colon (Acute ~2020) LFT elevation (Acute) Serum calcium elevated (Acute) Marijuana - last used a few days ago Smoker- last cigarette this morning Past Medical History Medical History Acute pancreatitis GERD (gastroesophageal reflux disease) Smoker unmotivated to quit Epidermal cyst of face Tubular adenoma of colon (~2020) Alcoholism LFT elevation Hypertension, essential Serum calcium elevated Hemochromatosis Polycythemia COPD (chronic obstructive pulmonary disease) Family History Family History Father Stroke Mother CVD (cardiovascular disease) Paternal Aunt Smoker Cancer Son Asthma Family history of problems with anesthesia: No Surgical History Surgical History History of right hip replacement History of colonoscopy History of hydrocelectomy History of esophagogastroduodenoscopy (EGD) History of Problems with Anesthesia: No Social History Social History Household Members: Family and Children Housing: House Are you a primary care worker to a significant other at home: No Do you presently have visiting nurse or other home services: No Unable to assess alcohol history related to: Refusing to respond Alcohol intake: current Alcohol intake frequency: 3 or more drinks per day Alcohol type: beer Patient Tobacco Use Status: Current everyday Tobacco user Tobacco use type: Cigarette Cigarette Packs Per Day: 1.5 Cigarettes Per Day: 30 Years Smoked: 40 e-Cigarette/Vaping Use: Never Used Use of substances other than those prescribed or required for medical reasons: Yes Substance Use Type: Marijuana Substance Use Type Other:: smokes marijuana-couple of times/week Substance Use Frequency: Weekly Have you been hit, kicked, punched, or otherwise hurt by someone within the past year? 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 Cognitive needs: No Hearing needs: No Vision needs: Yes Meds Allergies Allergy/AdvReac Type Severity Reaction Status Date / Time chlorthalidone AdvReac Severe stomach Verified 01/13/24 11:55 upset nicotine patch AdvReac Intermediate Redness of Uncoded 01/15/24 13:55 Skin Home Medications ?Medication ?Instructions ?Recorded ?Confirmed ?Last Taken ?Type amlodipine 10 mg tablet 10 mg PO QPM 10/19/23 01/15/24 01/29/24 History tiotropium bromide 2.5 2 puff inhalation QPM 10/19/23 01/15/24 01/29/24 History mcg/actuation mist for inhalation (Spiriva Respimat) pantoprazole 40 mg tablet,delayed 40 mg PO QAM 01/15/24 01/15/24 01/29/24 History release thiamine HCl (vitamin B1) 250 mg 250 mg PO 5XD 01/15/24 01/15/24 Unknown History tablet Exam Height,Weight and Vital Signs: Height 5 ft 7 in Weight 76.43 Last Vital Signs Temp Pulse Resp BP Pulse Ox O2 Del Method 01/29/24 06:42 51 18 01/29/24 06:29 98.4 F 48 L 16 110/68 97 Room Air kg Vital Signs Pulse 61 01/15/24 13:59 Resp 20 01/15/24 13:59 BP 119/75 01/15/24 13:59 Pulse Ox 97 01/15/24 13:59 O2 Del Method Room Air 01/15/24 13:59 Airway Mallampati Class: II TM Dist: >3cm Neck ROM: Full Loose/Missing/Broken Teeth: Yes (Edentulous) Assessment and Plan Assessment Anesthesia Assessment: Anesthesia Plan Discussed, PAT Visit and Chart Reviewed Final Anesthetic Review Family History of Problems with Anesthesia: No History of Problems with Anesthesia: No NPO: Yes ASA Class: III Final Preanesthetic Review: No Changes in Pt Med Stat, Meds/Allgs Chart Reviewed, Consent Obtained/Reviewed and Anes Risks/Benef Reviewed Patient Risk: Intermediate Procedure Risk: Low Assessment/Block/Sedation in SS: Assess/Block/Sedation-SS Anesthetic Plan Anesthetic Plan: GA Disposition: Standard PACU
--- NOTE | 2024-01-28 14:43 | MHC.SHP ---
Pre-Procedural Eval Section A - 24 Hr Update-Section A only Date of Service: 01/28/24 The patient is an INPATIENT: No Changes since office visit: No Cold of Flu in the past 2 weeks, No New Medical Problems, No Changes in Medication and No Patient answered all questions Section B - Complete if H&P > 30 days Chief Complaint: Unilateral inguinal hernia, without obstruction or Allergies: Allergies Allergy/AdvReac Type Severity Reaction Status Date / Time chlorthalidone AdvReac Severe stomach Verified 01/13/24 11:55 upset nicotine patch AdvReac Intermediate Redness of Uncoded 01/15/24 13:55 Skin Plan I have reviewed the history and physical and performed a pertinent physical examination on my patient. No changes have occurred unless specified. Time Spent With Patient Time: Total time managing care of this patient today ____ minutes.
[2024-01-29] VITALS (8 sets, daily range): BP systolic 99–123; BP diastolic 61–76; PULSE 48–58; RESP 16–18; TEMP 36.4–36.9; O2SAT 92–97; BMI 26.4
[2024-01-29] MEDS: Lactated Ringers 1,000 ML 100 ML IVCONT (06:37)
[2024-01-29] MEDS: Albuterol Sulfate (0.083%) 2.5 MG/3 ML VIAL.NEB INHALE (06:41)
--- NOTE | 2024-01-29 07:35 | MHC.SHP ---
Pre-Procedural Eval Section A - 24 Hr Update-Section A only Date of Service: 01/29/24 The patient is an INPATIENT: No Changes since office visit: No Cold of Flu in the past 2 weeks, No New Medical Problems, No Changes in Medication and No Patient answered all questions The patient has been examined within 24 hours of the surgical procedure. The History & Physical has been completed within 30 days and I have reviewed it.: Yes Section B - Complete if H&P > 30 days Chief Complaint: Unilateral inguinal hernia, without obstruction or Allergies: Allergies Allergy/AdvReac Type Severity Reaction Status Date / Time chlorthalidone AdvReac Severe stomach Verified 01/13/24 11:55 upset nicotine patch AdvReac Intermediate Redness of Uncoded 01/15/24 13:55 Skin Plan I have reviewed the history and physical and performed a pertinent physical examination on my patient. No changes have occurred unless specified. Time Spent With Patient Time: Total time managing care of this patient today ____ minutes.
--- NOTE | 2024-01-29 08:36 | P.OP_ITS ---
Operative Note Operative Note Date of Service: 01/29/24 Narrative: Preoperative diagnosis: [] 1. Left inguinal hernia 2. Incarcerated umbilical hernia Postop diagnosis: [] The same Procedure [] 1. Open left inguinal herniorrhaphy with Bard mesh 2. Open umbilical herniorrhaphy with Bard mesh Surgeon: [] [employer] Supervisor: [] Jodie Bansal Type of Anesthesia: [] General Indication for surgery: [] Very large indirect left inguinal hernia. Small direct inguinal hernia. Approximately 2 cm incarcerated umbilical hernia with omental contents. Findings: [] Patient brought to the operating room, placed on operative table in supine position, after an adequate level of general anesthesia was induced, the patient's abdomen and left groin were prepped and draped in usual sterile fashion. Commencing with a left inguinal hernia, a small left para inguinal incision was made and carried down through skin, subcutaneous tissue, Brittany's fascia. External oblique fibers were opened their direction with care to isolate and preserve the ilioinguinal nerve throughout the procedure. Spermatic cord was identified and retracted from the field. Exploration of the cord demonstrated a very large indirect hernia sac which was reduced. Patient also had a small direct hernia. A Bard mesh was placed in the indirect defect and sutured inferiorly to the inguinal ligament, and superiorly to the transversalis fascia using interrupted 0 Ethibond suture. Mesh also covered the direct hernia and entire inguinal floor. At completion, mesh was in good position with no gaps. Wound irrigated, secured hemostasis, and closed in the following manner; external oblique fascia was closed using running 2-0 Vicryl suture. Brittany's fascia was reapproximated using interrupted 3-0 Vicryl sutures. Interrupted inverted deep dermal 3-0 Vicryl sutures followed by running subcuticular 4-0 Vicryl sutures were placed. Steri-Strips and sterile dressings were applied. Wound was infiltrated with 0.5% Marcaine/1% lidocaine at the beginning of the case with an ilioinguinal block and also in each incision at completion. Next the umbilical hernia was approached using an infraumbilical curvilinear incision. This carried down through skin, subcutaneous tissue, were large hernia sac was identified and dissected off the posterior aspect of the umbilicus down to the fascia. Sac was opened were incarcerated omental contents and sac were amputated. Specimen sent to pathology. Fascia margins were cleared. A Bard mesh was placed in this defect and the superficial layer of the mesh was circumferentially sutured to the surrounding fascia using interrupted 0 Ethibond suture. At completion of procedure, mesh was in good position with no tension or gaps. Wound was irrigated, secured hemostasis, and closed in the following manner; posterior aspect umbilicus was tacked to the wound floor using using interrupted 3-0 Vicryl sutures. Skin was closed using interrupted inverted dermal 3-0 Vicryl sutures followed by Steri- Strips and sterile dressings. Wound was infiltrated 0.5% Marcaine/1% lidocaine at completion. Sponge, needle, and instrument counts reported correct. Patient tolerated the procedure well and emerged from anesthesia stable condition. EBL minimal
== END 2024-01-29 09:52 | disposition home or self-care (01) ==
PROVIDERS: PCP Internal Medicine; Visit Provider Surgery
PROC: (CPT 49505; principal; 2024-01-29 07:30)
PROC: (CPT 49505; 2024-01-29 07:30)
DX: K40.90 Unilateral inguinal hernia, without obstruction or gangrene, not specified as recurrent (principal); K42.0 Umbilical hernia with obstruction, without gangrene; J44.9 Chronic obstructive pulmonary disease, unspecified; I10 Essential (primary) hypertension; E83.52 Hypercalcemia; E83.119 Hemochromatosis, unspecified; D75.1 Secondary polycythemia; F10.20 Alcohol dependence, uncomplicated; R79.89 Other specified abnormal findings of blood chemistry; Z79.51 Long term (current) use of inhaled steroids; Z79.899 Other long term (current) drug therapy; Z88.8 Allergy status to other drugs, medicaments and biological substances; F17.210 Nicotine dependence, cigarettes, uncomplicated; Z98.890 Other specified postprocedural states
CPT/HCPCS: 49505; 49592; 88302; 94640; C1781; J0131; J0690; J2250; J2405; J2704; J2795; J3010

== ENCOUNTER → 2024-01-29 06:07 | Outpatient (BNV) | payer BC, SELFPAY | PROVIDERS: PCP Internal Medicine; Visit Provider Surgery | DX: K40.90 Unilateral inguinal hernia, without obstruction or gangrene, not specified as recurrent (principal); K42.9 Umbilical hernia without obstruction or gangrene | CPT/HCPCS: 49505; 49591 ==

== ENCOUNTER 2024-02-09 10:05 | Outpatient (AMB) | payer BC, SELFPAY ==
--- NOTE | 2024-02-09 10:12 | MHC.OFFVIS ---
Intake Intake Visit Reasons: S/P LIH w/mesh, umbilical hernia w/mesh Intake Note: Patient here s/p LIH w/mesh, umbilical hernia w/mesh. Reports incisions healing well. Patient c/o: on and off mild discomfort. No longer taking rx pain meds. SX: 01-29-24. Reflow Operator Required: No Accompanied by: Self / Same As Patient Allergies chlorthalidone Adverse Reaction (Severe, Verified 02/09/24 10:14) stomach upset nicotine patch Adverse Reaction (Intermediate, Uncoded 02/09/24 10:14) Redness of Skin HPI HPI Comments History of Present Illness Details Patient presents for follow-up. Incisional discomfort is minimal. He is increasing his activity level. Patient is tolerating a diet. Having regular bowel habits. [facility] Medical History Umbilical hernia (01/29/24) Acute pancreatitis GERD (gastroesophageal reflux disease) Smoker unmotivated to quit Epidermal cyst of face Tubular adenoma of colon (~2020) Alcoholism LFT elevation Hypertension, essential Serum calcium elevated Hemochromatosis Polycythemia COPD (chronic obstructive pulmonary disease) Surgical History Left inguinal hernia (01/29/24) History of right hip replacement History of colonoscopy History of hydrocelectomy History of esophagogastroduodenoscopy (EGD) Family History Father Stroke Mother CVD (cardiovascular disease) Paternal Aunt Smoker Cancer Son Asthma Social History Household Members: Family and Children Housing: House Are you a primary assurance services manager health care to a significant other at home: No Do you presently have visiting nurse or other home services: No Unable to assess alcohol history related to: Refusing to respond Alcohol intake: current Alcohol intake frequency: 3 or more drinks per day Alcohol type: beer Patient Tobacco Use Status: Current everyday Tobacco user Tobacco use type: Cigarette Cigarette Packs Per Day: 1.5 Cigarettes Per Day: 30 Years Smoked: 40 e-Cigarette/Vaping Use: Never Used Substance Use Type: Marijuana service: No Current occupational status: employed 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 Umbilical and left inguinal wounds are clean dry and intact healing well Assessment & Plan Assessment & Plan (1) Status post umbilical hernia repair, follow-up exam: Code(s): Z09 - Encounter for follow-up examination after completed treatment for conditions other than malignant neoplasm (2) Status post inguinal hernia repair: Code(s): Z98.890 - Other specified postprocedural states; Z87.19 - Personal history of other diseases of the digestive system Plan Patient has been given local instructions, and will follow-up p.r.n.. Will be given a work note to start in 2 weeks time with 2 weeks light duty. All questions answered. Coding Level of Care Code Global (14306) Diagnoses Status post umbilical hernia repair, follow-up exam Z09 Status post inguinal hernia repair Z98.890; Z87.19
== END 2024-02-09 10:25 | disposition home or self-care (01) ==
PROVIDERS: PCP Internal Medicine; Visit Provider Surgery
DX: Z09 Encounter for follow-up examination after completed treatment for conditions other than malignant neoplasm (principal); Z98.890 Other specified postprocedural states; Z87.19 Personal history of other diseases of the digestive system
CPT/HCPCS: 99024

== ENCOUNTER → 2024-02-09 10:05 | Outpatient (BNVA) | payer BC, SELFPAY | PROVIDERS: PCP Internal Medicine; Visit Provider Surgery ==

== ENCOUNTER 2024-05-20 11:55 | Outpatient (AMB) | payer BC, SELFPAY ==
[2024-05-20 12:07] VITALS: BP 149/96; PULSE 77; BMI 23.8
--- NOTE | 2024-05-20 12:07 | MHC.OFFVIS ---
Vital Signs 05/20/24 12:07 Height 5 ft 7 in Weight 152 lb 1.903 oz BMI 23.8 BP 149/96 H Blood Pressure Location Lt brachial Position Sitting Pulse 77 Intake Visit Reasons: f/u [facility] Intake Note: Lyndon presents in the office as a follow up for ED stay CC: notes scanned in - follow up from being in the ED. 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 Allergies chlorthalidone Adverse Reaction (Severe, Verified 02/09/24 10:14) stomach upset nicotine patch Adverse Reaction (Intermediate, Uncoded 02/09/24 10:14) Redness of Skin HPI HPI f/u [facility]: Details: 58-year-old male with underlying history of COPD, erythrocytosis, active tobacco use disorder, hypertension and alcoholic pancreatitis (last admitted 2 years ago 10/21/2021) who I am seeing for f/u RECAP: seen for i/p assessment for pancreatitis and splenic vein occlusion 09/2023 Patient had noted few days of severe non radiating epigastric pain 8/10 in severity without any relieving factors but worse with food. He admitted to drinking 6 pack of beer daily for years. He has had similar pain due to pancreatitis in the past but says this is not as bad. He also noted nausea, and non bloody vomiting. Labs: mild raised lipase, nml HGB CT: severe pancreatitis with peripancreatic edema, multiple pancreatic cysts and splenic vein occlusion He was at [facility] about 1 month ago and had splenic anuerysm, treated by IR embolization INTERIM: he went 4 weeks without alcohol but has gone back to it he has no symptoms no abdominal pain no nausea or vomiting weight is stable, appetite is fair he has been taking eliquis for splenic and portal vein occlusion EXAM: GENERAL: The patient is dishevelled VITAL SIGNS:see workflow HEENT: Nonicteric sclerae, PERRLA, EOMI. Oropharynx clear. Moist mucous membranes. Conjunctivae appear well perfused. No thyroid mass. CHEST: Chest wall is nontender. HEART: Regular rate and rhythm without murmurs. LUNGS: Clear to auscultation bilaterally. ABDOMEN: Soft, positive bowel sounds, tender epigastrium, no organomegaly.no flank tenderness--left inguinal hernia, small umbilical hernia SKIN: No rash, no excessive bruising, petechiae, or purpura. NEUROLOGIC: Cranial nerves II-XII intact without motor/sensory deficit. A/P: 1/ Severe alcoholic pancreatitis, stable, still drinking complicated by splenic aneurysm s/p embolization 2/ alcohol abuse, ongoing drinking and smoking PLAN: 1/ PPI and carafate as before 2/ MRA to r eval pancreas and vasculature 3/ reinforced on alcohol and smoking cessation 4/ cont with eliquis for the moment but benefits maybe outweighed by the harms if conts to drink also i am uncertain of the benefits of this as the thrombus is chronic by this stage [facility] Medical History Umbilical hernia (01/29/24) Acute pancreatitis GERD (gastroesophageal reflux disease) Smoker unmotivated to quit Epidermal cyst of face Tubular adenoma of colon (~2020) Alcoholism LFT elevation Hypertension, essential Serum calcium elevated Hemochromatosis Polycythemia COPD (chronic obstructive pulmonary disease) Surgical History Left inguinal hernia (01/29/24) History of right hip replacement History of colonoscopy History of hydrocelectomy History of esophagogastroduodenoscopy (EGD) Family History Father Stroke Mother CVD (cardiovascular disease) Paternal Aunt Smoker Cancer Son Asthma Social History Household Members: Family and Children Housing: House Are you a primary skin care specialist to a significant other at home: No Do you presently have visiting nurse or other home services: No Unable to assess alcohol history related to: Refusing to respond Alcohol intake: current Alcohol intake frequency: 3 or more drinks per day Alcohol type: beer Patient Tobacco Use Status: Current everyday Tobacco user Tobacco use type: Cigarette Cigarette Packs Per Day: 1.5 Cigarettes Per Day: 30 Years Smoked: 40 e-Cigarette/Vaping Use: Never Used Substance Use Type: Marijuana service: No Current occupational status: employed 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 Cognitive needs: No Hearing needs: No Vision needs: Yes Physical Exam Vital Signs: Last Vital Signs Pulse 77 05/20/24 12:07 BP 149/96 H 05/20/24 12:07 BMI result Body Mass Index 23.8 Assessment & Plan Assessment & Plan (1) Splenic artery aneurysm: Code(s): I72.8 - Aneurysm of other specified arteries Category: Medical Plan: as above (2) Pancreatitis: Code(s): K85.90 - Acute pancreatitis without necrosis or infection, unspecified Category: Medical Plan: as above Orders: Orders MR angio abdomen wo/w con 05/20/24 I72.8 - Aneurysm of other specified arteries Complete Blood Count Auto Diff 05/20/24 I72.8 - Aneurysm of other specified arteries, K85.90 - Acute pancreatitis without necrosis or infection, unspecified Ferritin 05/20/24 I72.8 - Aneurysm of other specified arteries, K85.90 - Acute pancreatitis without necrosis or infection, unspecified Zinc 05/20/24 I72.8 - Aneurysm of other specified arteries, K85.90 - Acute pancreatitis without necrosis or infection, unspecified Vitamin B12 and Folate 05/20/24 I72.8 - Aneurysm of other specified arteries, K85.90 - Acute pancreatitis without necrosis or infection, unspecified Carbohydrate Antigen 19-9 05/20/24 I72.8 - Aneurysm of other specified arteries, K85.90 - Acute pancreatitis without necrosis or infection, unspecified Comprehensive Met. Panel 05/20/24 I72.8 - Aneurysm of other specified arteries, K75.81 - Nonalcoholic steatohepatitis (OSPINA), K85.90 - Acute pancreatitis without necrosis or infection, unspecified Vitamin E 05/20/24 I72.8 - Aneurysm of other specified arteries, K85.90 - Acute pancreatitis without necrosis or infection, unspecified Vitamin D 25-OH Total 05/20/24 I72.8 - Aneurysm of other specified arteries, K85.90 - Acute pancreatitis without necrosis or infection, unspecified Vitamin C 05/20/24 I72.8 - Aneurysm of other specified arteries, K85.90 - Acute pancreatitis without necrosis or infection, unspecified Vitamin B6 05/20/24 I72.8 - Aneurysm of other specified arteries, K85.90 - Acute pancreatitis without necrosis or infection, unspecified Vitamin B5 (Pantothenic Acid) 05/20/24 I72.8 - Aneurysm of other specified arteries, K85.90 - Acute pancreatitis without necrosis or infection, unspecified Vitamin B3 (Niacin) 05/20/24 I72.8 - Aneurysm of other specified arteries, K85.90 - Acute pancreatitis without necrosis or infection, unspecified Vitamin B1 05/20/24 I72.8 - Aneurysm of other specified arteries, K85.90 - Acute pancreatitis without necrosis or infection, unspecified Vitamin A 05/20/24 I72.8 - Aneurysm of other specified arteries, K85.90 - Acute pancreatitis without necrosis or infection, unspecified Coding Level of Care Code Est Pt Level 4 (23486) Diagnoses Splenic artery aneurysm I72.8 Pancreatitis K85.90
== END 2024-05-20 12:53 | disposition home or self-care (01) ==
PROVIDERS: PCP Internal Medicine; Visit Provider Internal Medicine Gastroenterology
DX: I72.8 Aneurysm of other specified arteries (principal); K85.90 Acute pancreatitis without necrosis or infection, unspecified
CPT/HCPCS: 99214

== ENCOUNTER 2024-05-20 11:55 | Outpatient (REF) | payer BC, SELFPAY ==
[2024-05-20 13:27] LABS: MANUAL DIFF FLAG NO
[2024-05-20 13:33] LABS: Basophils Absolute Auto 0.1 X10*3/uL (0.0-0.2); Basophils Percent Auto 0.7 % (0-2); Eosinophils Absolute Auto 0.1 X10*3/uL (0.0-0.4); Eosinophils Percent Auto 1.1 % (0-4); Hematocrit 43.3 % (42.0-52.0); Hemoglobin 14.9 g/dl (14.0-18.0); Imm Gran Abs Auto 0.02 X10*3/uL (0.00-0.03); Imm Gran Pct Auto 0.3 % (0.0-0.4); Lymphocytes Absolute Auto 1.4 X10*3/uL (1.2-4.9); Lymphocytes Percent Auto 19.6 % (20-40); Mean Corpuscular HGB Conc 34.4 g/dl (31.0-36.0); Mean Corpuscular Hemoglobin 33.7 pg (27.0-33.0); Mean Platelet Volume 9.8 fL (9.4-12.4); Monocytes Percent Auto 13.1 % (2-11); Neutrophils Absolute Auto 4.8 x10*3/uL (2.0-8.3); Neutrophils Percent Auto 65.2 % (45-73); Platelet Count 221 X10*3/uL (160-400); Red Blood Count 4.42 X10*6/uL (4.60-5.80); Red Cell Distribution Width 13.9 % (11.0-16.0); White Blood Count 7.3 X10*3/uL (4.8-10.8)
[2024-05-20 13:45] LABS: Alanine Aminotransferase 57 U/L (0-40); Albumin Level 4.1 g/dL (3.5-5.0); Alkaline Phosphatase 152 U/L (39-117); Anion Gap 15 (12-20); Aspartate Amino Transferase 67 U/L (5-37); Bilirubin Total 1.5 mg/dL (0.0-1.0); Blood Urea Nitrogen 5 mg/dL (9-16); Calcium 11.1 mg/dL (8.4-10.2); Carbon Dioxide 22 mmol/L (22-29); Chloride 104 mmol/L (96-108); Estimated Glomerular Filt Rate > 60; Glucose Random 104 mg/dL (60-115); Potassium 4.3 mmol/L (3.3-5.1); Sodium 137 mmol/L (135-145); Total Protein 7.5 g/dL (6.5-8.0)
[2024-05-20 13:49] LABS: Alanine Aminotransferase 57 U/L (0-40); Albumin Level 4.1 g/dL (3.5-5.0); Alkaline Phosphatase 151 U/L (39-117); Anion Gap 16 (12-20); Aspartate Amino Transferase 67 U/L (5-37); Bilirubin Total 1.4 mg/dL (0.0-1.0); Blood Urea Nitrogen 6 mg/dL (9-16); Carbon Dioxide 22 mmol/L (22-29); Chloride 104 mmol/L (96-108); Estimated Glomerular Filt Rate > 60; Glucose Random 104 mg/dL (60-115); Lipase 25 U/L (8-78); Potassium 4.4 mmol/L (3.3-5.1); Sodium 138 mmol/L (135-145); Total Protein 7.5 g/dL (6.5-8.0)
[2024-05-20 13:50] LABS: Amylase 41 U/L (28-100)
[2024-05-20 14:05] LABS: Ferritin 740 ng/mL (20-250); Vitamin D 25-OH Total 17.3 ng/mL (>30)
[2024-05-20 14:08] LABS: TSH reflex Free T4 1.03 uIU/mL (0.32-4.0)
[2024-05-20 14:18] LABS: Folate 9.2 ng/mL (> or = 4.0); Vitamin B12 412 pg/mL (200-900)
[2024-05-25 01:28] LABS: Zinc 64 mcg/dL (60-130)
[2024-05-25 09:02] LABS: Carbohydrate Antigen 19-9 17 U/mL (<34)
[2024-05-26 02:53] LABS: Alpha-Tocopherol 7.2 mg/L (5.7-19.9)
[2024-05-26 19:09] LABS: Vitamin A 34 mcg/dL (38-98)
[2024-05-27 06:24] LABS: Vitamin B1 8 nmol/L (8-30)
[2024-05-27 14:38] LABS: Vitamin C 0.3 mg/dL (0.2-2.1)
[2024-05-27 14:58] LABS: Nicotinamide <20 ng/mL (see note); Vit B3 - Nicotinic Acid <20 ng/mL (see note)
[2024-05-27 15:13] LABS: Vitamin B5 (Pantothenic Acid) <=40 ng/mL (<275)
[2024-05-27 15:38] LABS: Vitamin B6 5.7 ng/mL (2.1-21.7)
== END 2024-05-20 11:56 | disposition home or self-care (01) ==
LOC: HO.LAB 11:55
PROVIDERS: PCP Internal Medicine; Visit Provider Internal Medicine Gastroenterology
DX: I72.8 Aneurysm of other specified arteries (principal); K85.90 Acute pancreatitis without necrosis or infection, unspecified; K75.81 Nonalcoholic steatohepatitis (NASH); E87.1 Hypo-osmolality and hyponatremia; F10.10 Alcohol abuse, uncomplicated; I10 Essential (primary) hypertension; E83.119 Hemochromatosis, unspecified; J44.9 Chronic obstructive pulmonary disease, unspecified; E88.09 Other disorders of plasma-protein metabolism, not elsewhere classified; I82.890 Acute embolism and thrombosis of other specified veins
CPT/HCPCS: 36415; 80053; 82150; 82180; 82306; 82607; 82728; 82746; 83690; 84207; 84425; 84443; 84446; 84590; 84591; 84630; 85025; 86301

== ENCOUNTER 2024-06-13 13:39 | Outpatient (REF) | payer OTHER, SELFPAY ==
--- NOTE | ~2024-06-13 | MR_ITS ---
EXAMINATION: MR ABDOMEN WITHOUT AND WITH CONTRAST CLINICAL INFORMATION: Pancreatitis with history of splenic aneurysm and portal vein thrombus status post embolization, tumor markers, rule out pancreatic cancer COMPARISON: CT abdomen 01/22/2024 TECHNIQUE: MRI of the abdomen before and after the IV administration of 7 mL of Gadavist was obtained using routine sequences. FINDINGS: LUNG BASES: Moderate right fat-containing Bochdalek hernia. KIDNEYS AND URETERS: Bosniak 1 peripelvic renal cysts, no imaging follow-up recommended. GALLBLADDER: Unremarkable. LIVER AND BILIARY TREE: Heterogeneous regions of loss of signal on out of phase imaging in the liver suggesting hepatic steatosis. Bandlike regions of focal fat in hepatic segment IVb, new from prior. No intra or extrahepatic biliary duct dilatation. PANCREAS: There is a 6.2 cm cystic lesion arising from the pancreatic body which is increased in size significantly previously 2.5 cm, with some intermediate intrinsic T1 signal suggesting internal components of protein or hemorrhage. Interval decrease in size of a 1.8 cm fluid collection in the gastrohepatic space, 5:11, previously 3.5 cm which may reflect a improving pseudocyst. The pancreatic duct is mildly dilated pancreatic tail to 3 mm distal to the fluid collection though decreased from prior previously 8 mm however with progression of atrophy of the pancreatic tail. SPLEEN: Few wedge-shaped regions of hypoenhancement in the spleen suggesting splenic infarcts new from prior. Accessory splenule. ADRENAL GLANDS: Unremarkable GASTROINTESTINAL TRACT: Colonic diverticulosis without evidence of diverticulitis. LYMPH NODES: No lymphadenopathy. VASCULAR: Splenic vein appears chronically occluded similar to prior. Although not a dedicated angiogram, the splenic artery is no longer definitively discerned as patent. There are dilated collateral vessels supplying the splenic hilum. Dilated mesenteric collateral vessels. The main and right portal veins are patent. The left portal vein is not definitively discerned, new from prior and may be significantly attenuated or chronically occluded. ABDOMINAL WALL: Unremarkable. OSSEOUS STRUCTURES: Advanced multilevel degenerative disc disease. Post surgical changes of right total hip arthroplasty with susceptibility artifact from hardware limiting evaluation. MR/MR abdomen wo/w con IMPRESSION: * The splenic vein appears chronically occluded similar to prior. Although not a dedicated angiogram, the splenic artery is no longer definitively discerned as patent, recommend correlation with findings on prior angiography at time of splenic artery aneurysm embolization. There are dilated collateral vessels supplying the splenic hilum. Few wedge-shaped regions of hypoenhancement in the spleen suggesting splenic infarcts new from prior. * There is a 6.2 cm cystic lesion arising from the pancreatic body which is increased in size significantly, with some intermediate intrinsic T1 signal suggesting internal components of protein or hemorrhage. The pancreatic duct is mildly dilated pancreatic tail to 3 mm distal to this though decreased from prior however with progression of atrophy of the pancreatic tail. Given interval increase in size in the setting of rising tumor markers, recommend correlation with endoscopic ultrasound and fine-needle aspiration, as a cystic pancreatic neoplasm cannot be excluded, though given history of pancreatitis pseudocyst would be the other differential consideration. * The left portal vein is not definitively discerned, new from prior and may be significantly attenuated or chronically occluded. * Interval decrease in size of a 1.8 cm fluid collection in the gastrohepatic space which may reflect a improving pseudocyst. * Heterogeneous regions of loss of signal on out of phase imaging in the liver suggesting hepatic steatosis. Bandlike regions of focal fat in hepatic segment IVb, new from prior. The report will be called to the ordering clinician by a [facility] Physician Bulk Mail Technician. Electronically signed by: Radha Dugan MD 07/13/2024 02:44 PM EDT
[2024-06-13] MEDS: gadobutroL 7.5 ML VIAL IVPUSH (14:45)
== END 2024-06-13 13:40 | disposition home or self-care (01) ==
LOC: HO.MRI 13:39
PROVIDERS: PCP Internal Medicine; Visit Provider Internal Medicine Gastroenterology
DX: I72.8 Aneurysm of other specified arteries (principal); K85.90 Acute pancreatitis without necrosis or infection, unspecified
CPT/HCPCS: 74183; A9585

== ENCOUNTER 2024-06-15 17:30 | Emergency (ER) | payer OTHER, SELFPAY ==
--- NOTE | ~2024-06-15 | CT_ITS ---
EXAMINATION: CT ABDOMEN AND PELVIS WITH CONTRAST CLINICAL INFORMATION: Epigastric pain, history splenic artery aneurysm. COMPARISON: MRI of the abdomen 02/12/2024, CT abdomen and pelvis 01/21/2034 TECHNIQUE: Multidetector volumetric images were obtained from the superior aspect of the liver through the pubic symphysis following administration 85 mL of Omnipaque 350 intravenous contrast. Sagittal and coronal reformatted images were obtained on the technologist's workstation. Oral contrast: No This CT examination was performed using dose optimization techniques as appropriate, variously including the following: *Automated exposure control *Adjustment of mA and/or kV according to patient size (this includes techniques or standardized protocols for targeted exams where dose is matched to indication/reason for exam; i.e. extremities or head) *Use of iterative reconstruction technique DLP: 422 mGy-cm FINDINGS: LUNG BASES: Patchy consolidation versus atelectasis in the lateral left lung base. Dependent atelectasis in both lung bases. LIVER, GALLBLADDER, AND BILIARY TREE: Normal attenuation of the liver. There is a central low-attenuation cyst. No intrahepatic biliary ductal dilatation. The gallbladder is unremarkable with no evidence of radiopaque gallstones, gallbladder wall thickening, or obvious pericholecystic inflammatory changes. PANCREAS: There is a peripancreatic cystic structure measuring approximately 5.2 x 5.1 cm at the level of the pancreatic body/tail junction. There is streak artifact from vascular coils in the splenic artery.Limited evaluation of the pancreas. SPLEEN: There are some small peripheral defects in the dome of the spleen and a more pronounced wedge defect in the periphery of the posterior aspect of the spleen likely representing small infarcts. ADRENAL GLANDS: Unremarkable. KIDNEYS AND URETERS: The kidneys are normal in size, shape, and attenuation. No hydronephrosis, hydroureter, or calculi seen. No perinephric stranding. BLADDER: Unremarkable. GASTROINTESTINAL TRACT: There is questionable thickening in the gastroesophageal junction and within the stomach. No high-grade obstruction. There is colonic diverticulosis. Stool throughout the colon. ABDOMINAL WALL: Fat-containing inguinal hernias. LYMPH NODES: Normal. VASCULAR: High bifurcation of the aorta. No aneurysm. Splenic vein appears to be occluded, similar to prior. The portal vein appears to be patent. PELVIC VISCERA: Unremarkable. OSSEOUS STRUCTURES: Advanced degenerative disc disease at L5-S1 greater than L4-L5. Left hip prosthesis. CT/CT abdomen pelvis w IV con IMPRESSION: 1. There is a 5.2 x 5.1 cm peripancreatic cystic structure at the level of the pancreatic body/tail junction. This may represent a pseudocyst. 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 2. Thickening of the gastroesophageal junction and possible thickening of the gastric rugal folds, correlate with history of gastritis/esophagitis. 3. Patchy consolidation versus atelectasis in the lateral left lung base. 4. Colonic diverticulosis. 5. Bilateral fat-containing inguinal hernias. Fleischner guidelines were followed. Electronically signed by: Efraín Mendoza MD 06/15/2024 08:08 PM EDT
[2024-06-15 17:37] VITALS: BP 161/78; PULSE 70; O2SAT 97
--- NOTE | 2024-06-15 17:39 | ECG_ITS ---
Test Reason : ABD PAIN Blood Pressure : / mmHG Vent. Rate : 076 BPM Atrial Rate : 076 BPM P-R Int : 136 ms QRS Dur : 094 ms QT Int : 446 ms P-R-T Axes : 068 -22 045 degrees QTc Int : 501 ms Normal sinus rhythm Incomplete right bundle branch block Septal infarct (cited on or before 21-OCT-2021) Prolonged QT Abnormal ECG When compared with ECG of 21-OCT-2021 13:47, Premature supraventricular complexes are no longer Present Vent. rate has decreased BY 44 BPM Incomplete right bundle branch block is now Present Questionable change in initial forces of Septal leads Referred By: Rosalva Alvarez Electronically Signed By:SOHAIL DESAI
--- NOTE | 2024-06-15 17:43 | ED_ITS ---
HPI - Abdominal Pain General Chief Complaint: Abdominal Pain Stated Complaint: ABD PAIN, HX PANCREATITIS Time Seen by Provider: 06/15/24 17:34 Source: patient and EMS Mode of arrival: EMS Limitations: no limitations History of Present Illness ED Provider: Dr. Rosalva Alvarez HPI narrative: patient comes to the emergency room complaining of severe epigastric pain that started earlier today. Patient admits that he drinks alcohol heavily, last drink at lunch today. Patient has history of pancreatitis and states that it feels similar to the last time he had pancreatitis. Patient complaining of nausea vomiting, no diarrhea. Denies chest pain or shortness of breath. Related Data Home Medications ?Medication ?Instructions ?Recorded ?Confirmed amlodipine 10 mg tablet 10 mg PO QPM 10/19/23 01/15/24 tiotropium bromide 2.5 2 puff inhalation QPM 10/19/23 01/15/24 mcg/actuation mist for inhalation (Spiriva Respimat) pantoprazole 40 mg tablet,delayed 40 mg PO QAM 01/15/24 01/15/24 release thiamine HCl (vitamin B1) 250 mg 250 mg PO 5XD 01/15/24 01/15/24 tablet Previous Rx's ?Medication ?Instructions ?Recorded sucralfate 100 mg/mL oral 10 ml PO QID #1,000 mL 03/02/24 suspension Allergies Allergy/AdvReac Type Severity Reaction Status Date / Time chlorthalidone AdvReac Severe stomach Verified 06/15/24 17:47 upset nicotine patch AdvReac Intermediate Redness of Uncoded 06/15/24 17:47 Skin Review of Systems Review of Systems Constitutional : No Weight loss, No Fever, No Chills, No Night Sweats, No Fatigue, No Malaise ENT/Mouth : No Hearing loss, No Ear Pain, No Nasal Congestion, No Sinus Pain, No Hoarseness, No sore throat, No Rhinorrhea, No Swallowing Difficulty Eyes: No Eye Pain, No Swelling, No Redness, No Foreign Body, No Discharge, No Vision Changes Cardiovascular : No Chest Pain, No SOB, No Dyspnea on Exertion, No Orthopnea, No Edema, No Palpitations Respiratory : No Cough, No Sputum, No Wheezing, No Smoke Exposure, No Dyspnea Gastrointestinal : Complaining of nausea, vomiting, no diarrhea, complaining of severe epigastric pain, nonradiating Genitourinary : no irregular bleeding, No Dysuria, No Urinary Frequency, No Hematuria, No Urinary Incontinence, No Urgency, No Flank Pain, No Urinary Flow Changes, No Hesitancy Musculoskeletal : No joint pain, No Myalgias, No Joint Swelling Skin : No Skin Lesions, No rash Neuro : No Weakness, No Numbness, No Paresthesias, No Loss of Consciousness, No Dizziness, No Headache Psych : No Anxiety/Panic, No Depression, No SI/HI/AH/VH, No Social Issues, Heme/Lymph: No Bruising, No Bleeding,No Lymphadenopathy Endocrine : No Polyuria, No Polydipsia, No Temperature Intolerance [facility] Past Medical History Medical History Umbilical hernia (01/29/24) Acute pancreatitis GERD (gastroesophageal reflux disease) Smoker unmotivated to quit Epidermal cyst of face Tubular adenoma of colon (~2020) Alcoholism LFT elevation Hypertension, essential Serum calcium elevated Hemochromatosis Polycythemia COPD (chronic obstructive pulmonary disease) Surgical History Left inguinal hernia (01/29/24) History of right hip replacement History of colonoscopy History of hydrocelectomy History of esophagogastroduodenoscopy (EGD) Family History Family History Father Stroke Mother CVD (cardiovascular disease) Paternal Aunt Smoker Cancer Son Asthma Social History Social History Household Members: Family and Children Housing: House Are you a primary health care technician to a significant other at home: No Do you presently have visiting nurse or other home services: No Unable to assess alcohol history related to: Refusing to respond Alcohol intake: current Alcohol intake frequency: 3 or more drinks per day Alcohol type: beer Patient Tobacco Use Status: Current everyday Tobacco user Tobacco use type: Cigarette Cigarette Packs Per Day: 1.5 Cigarettes Per Day: 30 Years Smoked: 40 e-Cigarette/Vaping Use: Never Used Substance Use Type: Marijuana Advance Directives: No Advance Directives Information Provided: No Do you have a plan to hurt others: No Plan service: No Current occupational status: employed 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 Oriented X3. looks very uncomfortable, moaning in pain Eyes: Pupils equal, round and reactive to light. ENT: Pharynx normal. Neck: Normal inspection. Neck supple. No lymph nodes noted. No crepitus CVS: Normal heart rate and rhythm. Pulses normal. Normal S1 and S2 Respiratory: No respiratory distress. Breath sounds normal. No Wheezing. No rales Abdomen: Soft , nondistended, tenderness to palpation in epigastric area Skin: Skin warm and dry. Normal skin color. Normal skin turgor. Extremities: No lower extremity edema. No Lacerations. No Rash Neuro: Oriented X 3. No motor deficit. No sensory deficit. Moving all extremities. No slurred speech. CN 2 through 12 grossly intact Psych: calm, cooperative Course Course Course Narrative: - all of patient's labs pending - EKG pending, CT scan pending - patient receiving IV fluids, Compazine and morphine Medical Decision Making Medical Decision Making MDM Narrative: - CT scan report: 5.2 x 5.1 cm peripancreatic cyst at the level of the pancreatic body/ tail junction, may represent a pseudocyst. 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 patient had a CT scan done in December of 2023, splenic vein was already occluded. However, the cyst was smaller, 1.5 x 1.5 x 3.5 cm - I discussed the above-mentioned with our evaporator Dr. Marinelli and also with our general surgeon Dr. Olsen, both agree that it would be best to transfer the patient - I discussed the above-mentioned with the patient, patient agreeable to transfer including [place] if needed - we spoke to GI at [facility]. They will accept the patient. However, this time there is no bed available. In the morning when a bed becomes available, they will call us with a bed assignment and they are willing to take the patient. Patient agreeable with plan. Patient will see in the ED overnight. - Physician observation started at midnight - patient getting IV morphine, 2nd dose now, patient feels fairly comfortable. - I discussed the patient with the hospitalist team at [facility], patient been accepted. - At this time, patient receiving a GI cocktail, also IV Pepcid. - Plan remains as above. Patient will stay overnight, tomorrow when beds open up at [facility], patient will be transferred. Differential Diagnosis Differential Diagnoses: The differential diagnosis associated with the presentation includes ( pancreatitis, pseudocyst, necrotizing pancreatitis) Admission/Observation Consideration of admission/observation: Escalation of care including admission/observation considered Consult Healthcare Provider Management of the patient was discussed with: Turbine Technician Lab Data MDM Lab Attestation statement: I reviewed the patient's lab results. 06/15/24 18:04 06/15/24 18:04 Labs: Lab Results 06/15/24 06/15/24 Range/Units 18:04 22:15 WBC 11.3 H (4.8-10.8) X10*3/uL RBC 4.55 L (4.60-5.80) X10*6/uL Hgb 15.5 (14.0-18.0) g/dl Hct 43.4 (42.0-52.0) % MCV 95.4 (80.0-98.0) fL MCH 34.1 H (27.0-33.0) pg MCHC 35.7 (31.0-36.0) g/dl RDW 13.8 (11.0-16.0) % Plt Count 247 (160-400) X10*3/uL MPV 9.3 L (9.4-12.4) fL Immature Gran % (Auto) 0.6 H (0.0-0.4) % Neut % (Auto) 77.9 H (45-73) % Lymph % (Auto) 10.7 L (20-40) % [place] % (Auto) 10.0 (2-11) % Eos % (Auto) 0.2 (0-4) % Baso % (Auto) 0.6 (0-2) % Lymph # (Auto) 1.2 (1.2-4.9) X10*3/uL [place] # (Auto) 1.1 (0.1-1.2) X10*3/uL Eos # (Auto) 0.0 (0.0-0.4) X10*3/uL Baso # (Auto) 0.1 (0.0-0.2) X10*3/uL Abs Immat Gran (auto) 0.07 H (0.00-0.03) X10*3/uL Absolute Neuts (auto) 8.8 H (2.0-8.3) x10*3/uL Absolute Nucleated RBC 0.000 (0.0-0.012) X10*3/uL Nucleated RBC % (auto) 0.0 (0.0-0.2) /100WBC Sodium 135 (135-145) mmol/L Potassium 4.0 (3.3-5.1) mmol/L Chloride 104 (96-108) mmol/L Carbon Dioxide 13 L (22-29) mmol/L Anion Gap 22 H (12-20) BUN 8 L (9-16) mg/dL Creatinine 0.78 (0.5-1.4) mg/dL Estim Creat Clear Calc 97.6 Estimated GFR > 60 Random Glucose 105 (60-115) mg/dL Calcium 10.9 H (8.4-10.2) mg/dL Magnesium 1.7 (1.6-2.6) mg/dL Total Bilirubin 0.5 (0.0-1.0) mg/dL Direct Bilirubin 0.3 (0.0-0.5) mg/dL AST 52 H (5-37) U/L ALT 39 (0-40) U/L Alkaline Phosphatase 161 H (39-117) U/L Troponin I High Sens < 2.7 (<3.5-35.0) ng/L Total Protein 7.8 (6.5-8.0) g/dL Albumin 4.4 (3.5-5.0) g/dL Lipase 159 H (8-78) U/L Ethyl Alcohol 45 mg/dL COVID-19 (YIFAN) Negative (Negative) COVID-19 Clin Com See Note Independent Interpretation I performed an independent interpretation of an: CT Scan Radiology Impression Discussion of test interpretation with radiology: I have reviewed the radiologist's reading. Radiologist Impression: FINDINGS: LUNG BASES: Patchy consolidation versus atelectasis in the lateral left lung base. Dependent atelectasis in both lung bases. LIVER, GALLBLADDER, AND BILIARY TREE: Normal attenuation of the liver. There is a central low-attenuation cyst. No intrahepatic biliary ductal dilatation. The gallbladder is unremarkable with no evidence of radiopaque gallstones, gallbladder wall thickening, or obvious pericholecystic inflammatory changes. PANCREAS: There is a peripancreatic cystic structure measuring approximately 5.2 x 5.1 cm at the level of the pancreatic body/tail junction. There is streak artifact from vascular coils in the splenic artery.Limited evaluation of the pancreas. SPLEEN: There are some small peripheral defects in the dome of the spleen and a more pronounced wedge defect in the periphery of the posterior aspect of the spleen likely representing small infarcts. ADRENAL GLANDS: Unremarkable. KIDNEYS AND URETERS: The kidneys are normal in size, shape, and attenuation. No hydronephrosis, hydroureter, or calculi seen. No perinephric stranding. BLADDER: Unremarkable. GASTROINTESTINAL TRACT: There is questionable thickening in the gastroesophageal junction and within the stomach. No high-grade obstruction. There is colonic diverticulosis. Stool throughout the colon. ABDOMINAL WALL: Fat-containing inguinal hernias. LYMPH NODES: Normal. VASCULAR: High bifurcation of the aorta. No aneurysm. Splenic vein appears to be occluded, similar to prior. The portal vein appears to be patent. PELVIC VISCERA: Unremarkable. OSSEOUS STRUCTURES: Advanced degenerative disc disease at L5-S1 greater than L4-L5. Left hip prosthesis. CT/CT abdomen pelvis w IV con IMPRESSION: 1. There is a 5.2 x 5.1 cm peripancreatic cystic structure at the level of the pancreatic body/tail junction. This may represent a pseudocyst. 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 2. Thickening of the gastroesophageal junction and possible thickening of the gastric rugal folds, correlate with history of gastritis/esophagitis. 3. Patchy consolidation versus atelectasis in the lateral left lung base. 4. Colonic diverticulosis. 5. Bilateral fat-containing inguinal hernias. Fleischner guidelines were followed. Medications Administered Discontinued Medications Generic Name Dose Route Start Last Admin Trade Name Freq PRN Reason Stop Dose Admin Sodium Chloride 2,000 mls @ 999 mls/hr 06/15/24 17:39 06/15/24 20:14 Ns IVCONT 06/15/24 19:39 Infused .Q2H1M ONE Infusion Iohexol 100 ml 06/15/24 18:48 06/15/24 18:48 Iohexol 350 Mg/Ml 100 Ml Infus..Btl IV 06/15/24 18:49 85 ml ONCE ONE Administration Morphine Sulfate 4 mg 06/15/24 17:39 06/15/24 17:59 Morphine Sulfate 4 Mg/Ml Cartridge IVPUSH 06/15/24 17:40 4 mg ONCE ONE Administration Protocol Prochlorperazine Edisylate 10 mg 06/15/24 17:39 06/15/24 17:59 Prochlorperazine Edisylate 10 Mg/2 Ml Vial IVPUSH 06/15/24 17:40 10 mg ONCE ONE Administration Critical Care Time Critical Care Time Critical Care Time: Yes Total Critical Care Time: 60 Attestation: I have personally provided critical care time. Time includes review of lab data, radiology results, discussion with consultants, and monitoring for potential decompensation. Intervention performed as documented. Discharge Plan Discharge Clinical Impression: Pancreas cyst, Acute pancreatitis Patient Disposition: [facility] Transfer Details: [facility] inpatient floor Prescriptions: No Action sucralfate 100 mg/mL suspension 10 ml PO QID Qty: 1000 2RF amlodipine 10 mg tablet 10 mg PO QPM Spiriva Respimat 2.5 mcg/actuation mist 2 puff INHALATION QPM thiamine HCl (vitamin B1) 250 mg tablet 250 mg PO 5XD pantoprazole 40 mg tablet,delayed release (DR/EC) 40 mg PO QAM Print Language: Ghanaian
[2024-06-15 17:44] VITALS: BP 165/79; PULSE 79; RESP 16; TEMP 36.4; O2SAT 100; BMI 26.3
[2024-06-15] MEDS: 0.9 % Sodium Chloride 2,000 ML 999 ML IVCONT (17:59)
[2024-06-15] MEDS: Prochlorperazine Edisylate 10 MG/2 ML VIAL IVPUSH (17:59)
[2024-06-15] MEDS: Morphine Sulfate 4 MG/ML CARTRIDGE IVPUSH (17:59)
[2024-06-15 18:08] LABS: MANUAL DIFF FLAG NO
[2024-06-15 18:13] LABS: Basophils Absolute Auto 0.1 X10*3/uL (0.0-0.2); Basophils Percent Auto 0.6 % (0-2); Eosinophils Percent Auto 0.2 % (0-4); Hematocrit 43.4 % (42.0-52.0); Hemoglobin 15.5 g/dl (14.0-18.0); Imm Gran Abs Auto 0.07 X10*3/uL (0.00-0.03); Imm Gran Pct Auto 0.6 % (0.0-0.4); Lymphocytes Absolute Auto 1.2 X10*3/uL (1.2-4.9); Lymphocytes Percent Auto 10.7 % (20-40); Mean Corpuscular HGB Conc 35.7 g/dl (31.0-36.0); Mean Corpuscular Hemoglobin 34.1 pg (27.0-33.0); Mean Corpuscular Volume 95.4 fL (80.0-98.0); Mean Platelet Volume 9.3 fL (9.4-12.4); Monocytes Absolute Auto 1.1 X10*3/uL (0.1-1.2); Neutrophils Absolute Auto 8.8 x10*3/uL (2.0-8.3); Neutrophils Percent Auto 77.9 % (45-73); Platelet Count 247 X10*3/uL (160-400); Red Blood Count 4.55 X10*6/uL (4.60-5.80); Red Cell Distribution Width 13.8 % (11.0-16.0); White Blood Count 11.3 X10*3/uL (4.8-10.8)
[2024-06-15 18:22] LABS: Ethanol 45 mg/dL
--- NOTE | 2024-06-15 18:26 | PC.NURSE ---
Pt enters my care- pt c/o RUQ pain- pt states it's pancreas pain. Pt states his last drink was at noon. Pmhx of etoh abuse and pancreatitis
[2024-06-15 18:27] LABS: Alanine Aminotransferase 39 U/L (0-40); Albumin Level 4.4 g/dL (3.5-5.0); Alkaline Phosphatase 161 U/L (39-117); Anion Gap 22 (12-20); Aspartate Amino Transferase 52 U/L (5-37); Bilirubin Direct 0.3 mg/dL (0.0-0.5); Bilirubin Total 0.5 mg/dL (0.0-1.0); Blood Urea Nitrogen 8 mg/dL (9-16); Calcium 10.9 mg/dL (8.4-10.2); Carbon Dioxide 13 mmol/L (22-29); Chloride 104 mmol/L (96-108); Creatinine Clr Calc Pharmacy 97.6; Estimated Glomerular Filt Rate > 60; Glucose Random 105 mg/dL (60-115); Lipase 159 U/L (8-78); Magnesium 1.7 mg/dL (1.6-2.6); Sodium 135 mmol/L (135-145); Total Protein 7.8 g/dL (6.5-8.0)
[2024-06-15 18:34] LABS: Troponin-I High Sensitivity < 2.7 ng/L (<3.5-35.0)
[2024-06-15] MEDS: iohexoL 350 MG/ML 100 ML INFUS..BTL IV (18:48)
[2024-06-15 22:56] LABS: COVID-19 Test Negative (Negative); IDNOW Serial# 08D9AD1C
[2024-06-16] MEDS: Magnesium Hydrox/Alum Hydrox 30 ML ORAL.SUSP PO (04:42)
[2024-06-16] MEDS: Lidocaine HCl Viscous 2 % 15 ML SOLUTION MUCOUS MEM (04:42)
[2024-06-16] MEDS: Morphine Sulfate 4 MG/ML CARTRIDGE IVPUSH (04:42)
[2024-06-16] MEDS: Famotidine/PF 20 MG/2 ML VIAL IVPUSH (04:42)
[2024-06-16 04:51] VITALS: BP 158/97; PULSE 86; RESP 16; TEMP 37.2; O2SAT 99
--- NOTE | 2024-06-16 05:00 | PC.NURSE ---
Pt found to still be in his street clothing, RN asked/encouraged the pt to change his clothing and put on a hospital erin to which he declined stating i can stay in my clothes .
[2024-06-16 06:03] VITALS: BP 140/97; PULSE 73; RESP 18; TEMP 36.4; O2SAT 97
[2024-06-16 09:57] VITALS: BP 148/92; PULSE 82; RESP 20; TEMP 37.2; O2SAT 98
--- NOTE | 2024-06-16 12:45 | PC.NURSE ---
[id number] report called to Joyce Marcano at [facility]
== END 2024-06-16 12:26 | disposition short-term general hospital (02) ==
PROVIDERS: Emergency Medicine; Emergency Provider Emergency Medicine; PCP Internal Medicine
DX: K85.90 Acute pancreatitis without necrosis or infection, unspecified (principal); K86.2 Cyst of pancreas; R10.9 Unspecified abdominal pain; J44.9 Chronic obstructive pulmonary disease, unspecified; Z96.641 Presence of right artificial hip joint; Z79.899 Other long term (current) drug therapy
CPT/HCPCS: 36415; 74177; 80048; 80076; 80307; 83690; 83735; 84484; 85025; 87635; 93005; 96361; 96374; 96375; 96376; 99285; J0737; J2270; Q9967

== ENCOUNTER 2024-08-26 11:39 | Outpatient (AMB) | payer BC, SELFPAY ==
--- NOTE | 2024-08-26 11:40 | MHC.OFFVIS ---
Vital Signs 08/26/24 11:43 Height 5 ft 7 in Weight 154 lb 5.177 oz BMI 24.2 BP 128/81 Blood Pressure Location Lt brachial Position Sitting Pulse 60 Intake Visit Reasons: 3 month f/u Intake Note: Lyndon presents in the office as a 3 month follow up. CC: he is curious to know what the [facility] dr had to say to him. He states he just had an MRI done there. Costume Technician Required: No Allergies chlorthalidone Adverse Reaction (Severe, Verified 08/26/24 11:43) stomach upset nicotine patch Adverse Reaction (Intermediate, Uncoded 08/26/24 11:43) Redness of Skin HPI HPI 3 month f/u: Details: 58-year-old male with underlying history of COPD, erythrocytosis, active tobacco use disorder, hypertension and alcoholic pancreatitis (last admitted 2 years ago 10/21/2021) who I am seeing for f/u RECAP: seen for i/p assessment for pancreatitis and splenic vein occlusion 09/2023 Patient had noted few days of severe non radiating epigastric pain 8/10 in severity without any relieving factors but worse with food. He admitted to drinking 6 pack of beer daily for years. He has had similar pain due to pancreatitis in the past but says this is not as bad. He also noted nausea, and non bloody vomiting. Labs: mild raised lipase, nml HGB CT: severe pancreatitis with peripancreatic edema, multiple pancreatic cysts and splenic vein occlusion He was at [employer] about 1 month ago and had splenic anuerysm, treated by IR embolization INTERIM: still drinking beer daily, occ hard liquor as well went to [employer], no further action for his cysts he has no symptoms no abdominal pain no nausea or vomiting weight is stable, appetite is fair-no diarrhea he stopped eliquis, was only supposed to take for 2 months per his report EXAM: GENERAL: The patient is dishevelled VITAL SIGNS:see workflow HEENT: Nonicteric sclerae, PERRLA, EOMI. Oropharynx clear. Moist mucous membranes. Conjunctivae appear well perfused. No thyroid mass. CHEST: Chest wall is nontender. HEART: Regular rate and rhythm without murmurs. LUNGS: Clear to auscultation bilaterally. ABDOMEN: Soft, positive bowel sounds, tender epigastrium, no organomegaly.no flank tenderness--left inguinal hernia, small umbilical hernia SKIN: No rash, no excessive bruising, petechiae, or purpura. NEUROLOGIC: Cranial nerves II-XII intact without motor/sensory deficit. A/P: 1/ Severe alcoholic pancreatitis, stable, still drinking complicated by splenic aneurysm s/p embolization, panc cysts 2/ alcohol abuse, ongoing drinking and smoking PLAN: 1/ PPI and carafate as before 2/ trial of creon due to weight loss concerns 3/ repeat MRI maybe in 3-6 months, he also has f/u with IR at [employer] 4/ advised on alcohol and lifestyle changes [facility] Medical History Umbilical hernia (01/29/24) Acute pancreatitis GERD (gastroesophageal reflux disease) Smoker unmotivated to quit Epidermal cyst of face Tubular adenoma of colon (~2020) Alcoholism LFT elevation Hypertension, essential Serum calcium elevated Hemochromatosis Polycythemia COPD (chronic obstructive pulmonary disease) Surgical History Left inguinal hernia (01/29/24) History of right hip replacement History of colonoscopy History of hydrocelectomy History of esophagogastroduodenoscopy (EGD) Family History Father Stroke Mother CVD (cardiovascular disease) Paternal Aunt Smoker Cancer Son Asthma Social History Household Members: Family and Children Housing: House Are you a primary health care analyst to a significant other at home: No Do you presently have visiting nurse or other home services: No Unable to assess alcohol history related to: Refusing to respond Alcohol intake: current Alcohol intake frequency: 3 or more drinks per day Alcohol type: beer Patient Tobacco Use Status: Current everyday Tobacco user Tobacco use type: Cigarette Cigarette Packs Per Day: 1.5 Cigarettes Per Day: 30 Years Smoked: 40 e-Cigarette/Vaping Use: Never Used Substance Use Type: Marijuana service: No Current occupational status: employed 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 Cognitive needs: No Hearing needs: No Vision needs: Yes Physical Exam Vital Signs: Last Vital Signs Pulse 60 08/26/24 11:43 BP 128/81 08/26/24 11:43 BMI result Body Mass Index 24.2 Assessment & Plan Assessment & Plan (1) Splenic artery aneurysm: Code(s): I72.8 - Aneurysm of other specified arteries Category: Medical Plan: see above (2) Pancreatitis: Code(s): K85.90 - Acute pancreatitis without necrosis or infection, unspecified Category: Medical Plan: see above Medications: New [id number] 12,000-38,000 -60,000 unit (Creon) administer with meals and/or snacks 3 caps PO QID 360 caps 1RF Coding Level of Care Code Est Pt Level 3 (54463) Diagnoses Splenic artery aneurysm I72.8 Pancreatitis K85.90
[2024-08-26 11:43] VITALS: BP 128/81; PULSE 60; BMI 24.2
== END 2024-08-26 13:10 | disposition home or self-care (01) ==
LOC: HO.HGI 11:39
PROVIDERS: PCP Internal Medicine; Visit Provider Internal Medicine Gastroenterology
DX: I72.8 Aneurysm of other specified arteries (principal); K85.90 Acute pancreatitis without necrosis or infection, unspecified
CPT/HCPCS: 99213

== ENCOUNTER → 2024-08-26 11:39 | Outpatient (BNVA) | payer OTHER, SELFPAY | PROVIDERS: PCP Internal Medicine; Visit Provider Internal Medicine Gastroenterology ==

== ENCOUNTER 2024-11-01 08:55 | Outpatient (REF) | payer OTHER, SELFPAY ==
--- NOTE | ~2024-11-01 | CT_ITS ---
CLINICAL HISTORY: F17.210 - Nicotine dependence, cigarettes, uncomplicated CT lung cancer screening (LDCT) Comparison: None Technique: Axial CT images of the chest using low-dose technique. Referring provider counseled the patient on shared decision-making for LDCT screening. Additional counseling was provided on smoking cessation. Effective radiation dose total: DLP 45.9 mGycm, CTDIvol 1.2 mGy. Findings: Lung: Small linear average size 5.2 mm nodule lateral right costophrenic sulcus image 430 series 6. No other sizable discrete nodule on either side. Ground-glass attenuation and patchy fibronodular opacities in the left lower lobe suggesting acute pneumonia including atypical infection. Mild generalized emphysema. Mediastinum: Thoracic inlet intact. No enlarged mediastinal or hilar lymph nodes. Normal caliber thoracic aorta and pulmonary trunk. Normal heart size. No pericardial effusion. Coronary artery calcifications: Severe Limited upper abdomen: Surgical clips and/or embolization changes in the left upper quadrant. Other: Bones and soft tissues intact. Impression: LUNG RADS: 0. Suspected infectious or inflammatory findings. MANAGEMENT: 1-3-month follow-up low-dose CT. Category 1: Normal; continue annual screening Category 2: Benign appearance or behavior, continue annual screening Category 3: Probably benign, [address] recommended Category 4A: Suspicious, [address] recommended; may consider PET/CT Category 4B: Suspicious, Additional diagnostics and/or tissue sampling recommended Category 4X: Suspicious, Additional diagnostics and/or tissue sampling recommended Category 0: Recalls (incomplete screen due to Incomplete coverage, Noise, Respiratory motion, Expiration, Obscured by acute abnormality) This document has been electronically signed by: Gregorio Calderon MD on 11/02/2024 14:14:45
== END 2024-11-01 08:56 | disposition home or self-care (01) ==
LOC: HO.CT 08:55
PROVIDERS: PCP Internal Medicine; Visit Provider Physician Assistant Medical
DX: Z12.2 Encounter for screening for malignant neoplasm of respiratory organs (principal); F17.210 Nicotine dependence, cigarettes, uncomplicated
CPT/HCPCS: 71271

== ENCOUNTER → 2024-11-01 08:57 | Outpatient (BNV) | payer OTHER, SELFPAY | PROVIDERS: PCP Internal Medicine; Visit Provider Radiology Diagnostic Radiology | DX: F17.210 Nicotine dependence, cigarettes, uncomplicated (principal) | CPT/HCPCS: 71271 ==

== ENCOUNTER 2024-11-23 10:10 | Outpatient (AMB) | payer OTHER, SELFPAY ==
[2024-11-23 10:18] VITALS: BP 130/70; PULSE 62; O2SAT 94; BMI 25.4
--- NOTE | 2024-11-23 10:18 | MHC.OFFVIS ---
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: No Allergies chlorthalidone Adverse Reaction (Severe, Verified 11/23/24 10:40) stomach upset nicotine patch Adverse Reaction (Intermediate, Uncoded 11/23/24 10:40) Redness of Skin Medication List - Last Reconciled 11/23/24 by Roddy Sethi MD amlodipine 10 mg PO QPM doxycycline hyclate 100 mg PO BID 10 days pdigkr-llnjraku-yxyjoak 12,000-38,000 -60,000 unit (Creon) 3 caps PO QID meloxicam 7.5 mg PO DAILY pantoprazole 40 mg PO DAILY sucralfate 10 mL PO QID thiamine HCl (vitamin B1) 250 mg PO 5XD tiotropium bromide 2.5 mcg/actuation (Spiriva Respimat) 2 puffs inhalation QPM Do you need a note to return to daycare/school/sports/work: No HPI HPI copd: Details: Lyndon is 59 years old gentleman, hard core smoker throughout his adult life, Has tried his best to quit smoking with using nicotine patches, gums and will power, but has not been able to cut down or stop smoking. He has ongoing intermittent cough, sometimes productive of whitish phlegm. He does not get any recurrent respiratory infections. He does not have any significant degree of dyspnea on exertion. He has been treated with Spiriva Respimat 2 inhalations a day and albuterol p.r.n., and now because of insurance coverage he has been out of this medicine. He went for his routine annual CT scan on 11/03/24 and increase peribronchial nodularity and some thickened bronchial fritz was noted. There was impression of possible pneumonitis left lower lobe. Patient has been empirically treated with a course of doxycycline 100 mg b.i.d. for 10 days. He is more at baseline but still has mild intermittent cough. Denies any significant shortness of breath. This gentleman also has history of alcohol abuse and has had recurrent pancreatitis which is controlled at this time. [facility] Medical History (Updated 11/23/24 @ 10:53 by Roddy Sethi MD) Pneumonitis Nicotine dependence, cigarettes, uncomplicated Acute pancreatitis GERD (gastroesophageal reflux disease) Epidermal cyst of face Tubular adenoma of colon (~2020) Alcoholism LFT elevation Hypertension, essential Serum calcium elevated Hemochromatosis Polycythemia COPD (chronic obstructive pulmonary disease) Surgical History History of umbilical hernia repair History of left inguinal hernia repair History of right hip replacement History of colonoscopy History of hydrocelectomy History of esophagogastroduodenoscopy (EGD) Family History Father Stroke Mother CVD (cardiovascular disease) Paternal Aunt Smoker Cancer Son Asthma Social History Household Members: Family and Children Housing: House Are you a primary career developer to a significant other at home: No Do you presently have visiting nurse or other home services: No Unable to assess alcohol history related to: Refusing to respond Alcohol intake: current Alcohol intake frequency: 3 or more drinks per day Alcohol type: beer Patient Tobacco Use Status: Current everyday Tobacco user Tobacco use type: Cigarette Cigarette Packs Per Day: 1.5 Cigarettes Per Day: 30 Years Smoked: 40 e-Cigarette/Vaping Use: Never Used Substance Use Type: Marijuana service: No Current occupational status: employed 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 Cognitive needs: No Hearing needs: No Vision needs: Yes Review of Systems Const All systems reviewed & are unremarkable except as noted in HPI and below Eyes Reports no additional complaints ENT Reports no additional complaints Card Denies chest pain, Denies irregular heart rhythm and Denies leg edema Resp Reports as per HPI GI Reports no additional complaints Reports no additional complaints Musc Reports back pain (Mild at nights) Skin/Breast Reports system reviewed and no additional complaints, except as documented Neuro Reports no additional complaints Psych Reports no additional complaints Physical Exam Vital Signs: Last Vital Signs Pulse 62 11/23/24 10:18 BP 130/70 11/23/24 10:18 Pulse Ox 94 11/23/24 10:18 Oxygen Delivery Method Room Air 11/23/24 10:18 BMI result Body Mass Index 25.4 Const General: comfortable, no acute distress, alert and awake Orientation/consciousness: patient oriented x3 HEENT Head: Yes normal to inspection General nose exam: No nasal polyps present and No nasal discharge present Face and sinus: Yes sinuses nontender Mouth: oropharynx normal Throat: Yes posterior oropharynx normal Eyes General: appearance normal, both eyes and all related structures Neck Neck: Yes normal visual inspection, Yes no lymphadenopathy, Yes trachea midline and Yes no JVD Thyroid: Thyroid normal Chest Chest palpation & inspection: normal inspection of the chest, normal palpation of entire chest wall and no tenderness Resp Other: Percussion note is resonant, breath sounds are slightly distant with prolonged expiratory phase. No wheezes rhonchi or crepitations are heard today. The breath sounds over the left base are somewhat coarse. Cardio Palpation: normal PMI Rate: regular rate Rhythm: regular rhythm Heart sounds: no gallops and no murmurs Peripheral pulses: Peripheral pulses 2+ throughout GI Palpation (GI): Soft to palpation, nontender, No hepatosplenomegaly present and no masses Auscultation: normal bowel sounds Back/Spine/Pelvis Thoracic/Lumbar Spine: thoracic and lumbar spine normal to inspection Skin General skin exam: no rashes or lesions noted Lesions: lesion noted (A grape sized cyst over left cheek) Neuro General: patient oriented x3 and no focal motor deficits Cranial nerves: Yes CN's II-XII intact bilaterally Extrem General: Yes normal to inspection, Yes no clubbing, cyanosis or edema and Yes no calf tenderness Psych Appearance: grossly normal Speech and movement: Normal speech and movement present Results Reviewed Results Reviewed: CT SCAN 11/02 Impression: LUNG RADS: 0. Suspected infectious or inflammatory findings. MANAGEMENT: 1-3-month follow-up low-dose CT. Assessment & Plan Assessment & Plan (1) Nicotine dependence, cigarettes, uncomplicated: Comment: (current smoker - onset 16yo, 1.5ppd x 42yrs, 50+pyh) still smoking 1 and half pack a day, He is fully aware of the fact that he needs to quit smoking., as tried .can not do it everything but he just Code(s): F17.210 - Nicotine dependence, cigarettes, uncomplicated Category: Medical Plan: Needs to continue having annual lung scanning. Now because of the abnormal findings of his CT scan on 11/03 , he would have a repeat CT scan at 3 months interval. (2) COPD (chronic obstructive pulmonary disease): Comment: He has mild to moderate degree of obstructive airway disorder, It is remaining relatively stable. Intermittent cough is mainly related to smoking, His shortness of breath and cough are slightly increased since he has been out of Spiriva. Code(s): J44.9 - Chronic obstructive pulmonary disease, unspecified Category: Medical Qualifiers: COPD type: emphysema Emphysema type: panlobular Qualified Code(s): J43.1 - Panlobular emphysema Plan: [place] : Continue to use Spiriva Respimat 2.5 mg 2 inhalations daily. Prescription renewed ProAir HFA 2 puffs Q 4-6 hours p.r.n. ( he hardly needs to use ) Orders: Orders CT chest wo IV con 2 Months F1210 - Nicotine dependence, cigarettes, uncomplicated, J43.1 - Panlobular emphysema, J98.4 - Other disorders of lung Medications: New albuterol sulfate 90 mcg/actuation 2 puffs inhalation Q4-6H PRN 8.5 grams 3RF shortness of breath or wheezing 30 days tiotropium bromide 2.5 mcg/actuation (Spiriva Respimat) 2 puffs inhalation DAILY 4 grams 5RF 30 days Coding Level of Care Code Est Pt Level 3 (50183) Diagnoses Nicotine dependence, cigarettes, uncomplicated 210 Panlobular emphysema J43.1 COPD type: emphysema Emphysema type: panlobular
--- OUTSIDE RECORDS SUMMARY | 2024-11-23 12:06 | XMS_ITS | Data Portability ---
Author Organization JOSE - [facility], [facility] Address [address] [place] [address] Assessment Encounter Date Assessment Date Assessment LastModified by Organization Details LastModified Time 01/21/2024 01/21/2024 I am seeing the patient today under the supervision of kacie who was available but who did not see the patient. The patient presents today for follow-up. Has known trochanteric bursitis of the R hip. Block scan is helping Has had no recent trauma, no fevers or chills, no neurovascular changes. Presents today for further evaluation. PAST MEDICAL/SURGICAL HISTORY Past medical history is reviewed per intake sheet. PHYSICAL FINDINGS On physical examination, the patient is well appearing and in no apparent distress, alert and oriented x3. Gait is symmetric. Physician examination of the hip reveals the skin to be intact, normal musculature, continued tenderness on palpation over the greater trochanter. No pain with range of motion of the hip, has full range of motion, no crepitus noted with range of motion. No significant pain with straight leg raise. ASSESSMENT Symptomatic trochanteric bursitis of the R hip. PLAN I reviewed the findings with the patient, discussed different treatment options which included medications physical therapy and injections The patient wishes to proceed with continued meloxicam is helping significantly will follow up with me on a p.r.n. basis radha Not available 01/21/2024 09:22:20 Plan of Treatment Reminders Order Date Submit Date Provider Last Modified By Organization Details Last Modified Time Details Appointments None recorded. Lab None recorded. Referral None recorded. Procedures None recorded. Surgeries None recorded. Imaging None recorded. Medication Orders meloxicam 15 mg tablet 2023 024 radha [id number], [address] [place], [address], 4 10:25:16 Patient TargetsNo targets recorded. Patient InstructionsNo instructions recorded. Reason for Referral None Reported. Problems Name Problem SNOMED Code Status Onset Date Resolution Date Notes Provider Name and Address Organization Details Recorded Time No complaints [id number] Active Status : 'A'; Not Available [facility] Trochanter ic bursitis of right hip [id number] 00 Active 2023 ELVIN blanton [facility] 4 09:19:51 Problem Notes None recorded. Medical Equipment None Reported. Allergies No known drug allergies Medications Name Sig Start Date Stop Date Status Note LastModified by Organization Details LastModified Time hydrocodone 5 mg-acetaminoph en 325 mg tablet active Not Available Not Available Not Available sucralfate 100 mg/mL oral suspension SWISH 10 MLS IN MOUTH AND SWALLOW FOUR TIMES A DAY AFTER FOOD/DRIN K active Not Available Not Available No t Available meloxicam 15 mg tablet TAKE ONE TABLET BY MOUTH EVERY DAY AFTER MEAL S) active Not Available Not Available No t Available amlodipine 10 mg tablet TAKE 1 TABLET BY MOUTH DAILY active Not Available Not Available No t Available pantoprazole 40 mg tablet,delayed release TAKE ONE TABLET BY MOUTH EVERY DAY active Not Available Not Available No t Available Spiriva Respimat 2.5 mcg/actuation solution for inhalation INHALE 2 PUFFS DAILY active Not Available Not Available No t Available Vitals Date Recorded Body height Body mass index (BMI) Body weight Provider Name and Address Organization Details Last Updated DateTime 01/21/2024 165.1 cm 28.3 kg/m2 47938.7 g ELVIN MCCARTY [facility] 01/21/2024 09:16:32 Social History None recorded. Functional Status None recorded. Mental Status None recorded. Family History Nothing Reported. Medical History No medical history recorded. Past Encounters Encounter ID Performer Location Encounter Start Date Encounter Closed Date Diagnosis/Indication Diagnosis SNOMED-CT Code Diagnosis ICD10 Code Diagnosis Note [id number] YUDELKA Ann [address] [place] [address] 01/21/2024 09:06:21 01/21/2024 09:27:10 Trochanteric bursitis of right hip [id number] 78015 M70.61 Health Concerns Section Related Observation LastModified by Organization Detai ls LastModified Time None Recorded Concern Status LastModified by Organization Details LastModified Time None Recorded Advance Directives Directive None Recorded Payers Encounter Date Sequence Insurance Name Policy Number Policy Hadley Covered Member ID Hadley Member ID Guarantor Name 01/21/2024 1 [facility] [place] [id number] Maia Wiley [id number] Lyndon Wiley
== END 2024-11-23 16:37 | disposition home or self-care (01) ==
PROVIDERS: PCP Internal Medicine; Visit Provider Internal Medicine
DX: F17.210 Nicotine dependence, cigarettes, uncomplicated (principal); J43.1 Panlobular emphysema
CPT/HCPCS: 99213

== ENCOUNTER → 2024-11-23 10:10 | Outpatient (BNVA) | payer OTHER, SELFPAY | PROVIDERS: PCP Internal Medicine; Visit Provider Internal Medicine ==

== ENCOUNTER 2025-01-16 12:41 | Outpatient (AMB) | payer OTHER, SELFPAY ==
--- NOTE | 2025-01-16 12:44 | MHC.OFFVIS ---
Vital Signs 01/16/25 12:50 Height 5 ft 7 in Weight 160 lb BMI 25.1 BP 121/72 Blood Pressure Location Lt brachial Position Sitting Pulse 63 Intake Visit Reasons: 4 months f/u Intake Note: Lyndon presents in the office as a 4 month follow up. CC: He states that the last few months he has been having no concerns. Allergies chlorthalidone Adverse Reaction (Severe, Verified 01/16/25 12:51) stomach upset nicotine patch Adverse Reaction (Intermediate, Uncoded 01/16/25 12:51) Redness of Skin HPI HPI 4 months f/u: Details: 58-year-old male with underlying history of COPD, erythrocytosis, active tobacco use disorder, hypertension and alcoholic pancreatitis (last admitted 2 years ago 10/21/2021) who I am seeing for f/u RECAP: seen for i/p assessment for pancreatitis and splenic vein occlusion 09/2023 Patient had noted few days of severe non radiating epigastric pain 8/10 in severity without any relieving factors but worse with food. He admitted to drinking 6 pack of beer daily for years. He has had similar pain due to pancreatitis in the past but says this is not as bad. He also noted nausea, and non bloody vomiting. Labs: mild raised lipase, nml HGB CT: severe pancreatitis with peripancreatic edema, multiple pancreatic cysts and splenic vein occlusion He was at [facility] about 1 month ago and had splenic anuerysm, treated by IR embolization INTERIM: still drinking beer daily, occ hard liquor not been to hospital for 6 months! no abdominal pain no nausea or vomiting weight is stable, appetite is fair-no diarrhea he has noted rectal bleeding on and off EXAM: GENERAL: The patient is dishevelled VITAL SIGNS:see workflow HEENT: Nonicteric sclerae, PERRLA, EOMI. Oropharynx clear. Moist mucous membranes. Conjunctivae appear well perfused. No thyroid mass. CHEST: Chest wall is nontender. HEART: Regular rate and rhythm without murmurs. LUNGS: Clear to auscultation bilaterally. ABDOMEN: Soft, positive bowel sounds, non tender epigastrium, no organomegaly.no flank tenderness- SKIN: No rash, no excessive bruising, petechiae, or purpura. NEUROLOGIC: Cranial nerves II-XII intact without motor/sensory deficit. A/P: 1/ Severe alcoholic pancreatitis, stable, still drinking complicated by splenic aneurysm s/p embolization, panc cysts 2/ alcohol abuse, ongoing drinking and smoking 3/ needs colonoscopy --hx of colon polyps, rectal bleeding PLAN: 1/ cont ppi 2/ repeat colonoscopy now given rectal lbeding and hx of polyps 3/ advised on alcohol and lifestyle changes [facility] Medical History Pneumonitis Nicotine dependence, cigarettes, uncomplicated Acute pancreatitis GERD (gastroesophageal reflux disease) Epidermal cyst of face Tubular adenoma of colon (~2020) Alcoholism LFT elevation Hypertension, essential Serum calcium elevated Hemochromatosis Polycythemia COPD (chronic obstructive pulmonary disease) Surgical History History of umbilical hernia repair History of left inguinal hernia repair History of right hip replacement History of colonoscopy History of hydrocelectomy History of esophagogastroduodenoscopy (EGD) Family History Father Stroke Mother CVD (cardiovascular disease) Paternal Aunt Smoker Cancer Son Asthma Social History Household Members: Family and Children Housing: House Are you a primary child care assistant to a significant other at home: No Do you presently have visiting nurse or other home services: No Unable to assess alcohol history related to: Refusing to respond Alcohol intake: current Alcohol intake frequency: 3 or more drinks per day Alcohol type: beer Patient Tobacco Use Status: Current everyday Tobacco user Tobacco use type: Cigarette Cigarette Packs Per Day: 1.5 Cigarettes Per Day: 30 Years Smoked: 40 e-Cigarette/Vaping Use: Never Used Substance Use Type: Marijuana service: No Current occupational status: employed 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 Cognitive needs: No Hearing needs: No Vision needs: Yes Physical Exam Vital Signs: Last Vital Signs Pulse 63 01/16/25 12:50 BP 121/72 01/16/25 12:50 BMI result Body Mass Index 25.1 Assessment & Plan Assessment & Plan (1) Pancreatitis: Code(s): K85.90 - Acute pancreatitis without necrosis or infection, unspecified Category: Medical Plan: as above Medications: New sodium,potassium,mag sulfates 17.5-3.13-1.6 gram (Suprep Bowel Prep Kit) DILUTE; drink 1/2 at 6-8 pm and half at 11 PM- 1AM 354 mL 0RF bisacodyl (Dulcolax (bisacodyl)) take at 6 pm day before colonoscopy 20 mg (4 x 5 mg) PO ONCE 1 day 4 tabs 0RF Coding Level of Care Code Est Pt Level 3 (91428) Diagnoses Pancreatitis K85.90
[2025-01-16 12:50] VITALS: BP 121/72; PULSE 63; BMI 25.1
== END 2025-01-16 13:23 | disposition home or self-care (01) ==
LOC: HO.HGI 12:42
PROVIDERS: PCP Internal Medicine; Visit Provider Internal Medicine Gastroenterology
DX: K85.90 Acute pancreatitis without necrosis or infection, unspecified (principal)
CPT/HCPCS: 99213

== ENCOUNTER → 2025-01-16 12:41 | Outpatient (BNVA) | payer OTHER, SELFPAY | PROVIDERS: PCP Internal Medicine; Visit Provider Internal Medicine Gastroenterology ==

== ENCOUNTER 2025-01-26 08:09 | Outpatient (REF) | payer OTHER, SELFPAY ==
--- NOTE | ~2025-01-26 | CT_ITS ---
CLINICAL HISTORY: F17.210 - Nicotine dependence, cigarettes, uncomplicated CT chest without contrast Comparison: CT/SR - CT LUNG SCREENING - 11/01/24 09:[address]/SR - CT ABDOMEN PELVIS W IV CON - 06/15/24 18:38 EDT Findings: The heart is normal size. Calcification of the coronary vasculature. The visualized thyroid and mediastinum are unremarkable. No consolidation or effusion. 5 mm right costophrenic angle nodule is unchanged. Previously seen left lower lobe ground-glass densities have resolved. Visualized portions of the upper abdomen demonstrate ill-defined low-density lesions within the left hepatic lobe as before. The bones are intact. IMPRESSION: 1. Resolved of the left lower lobe pneumonia. 2. Coronary artery disease. 3. Stable right costophrenic angle nodule. LungRADS 2 - Benign Appearance: Continue annual screening with low dose Chest CT in 12 months. ##L2# This document has been electronically signed by: Jorge Matthews MD on 01/26/2025 16:49:43
== END 2025-01-26 08:10 | disposition home or self-care (01) ==
LOC: HO.CT 08:09
PROVIDERS: PCP Internal Medicine; Visit Provider Internal Medicine
DX: J43.1 Panlobular emphysema (principal); J98.4 Other disorders of lung; F17.210 Nicotine dependence, cigarettes, uncomplicated
CPT/HCPCS: 71250

== ENCOUNTER → 2025-01-26 08:12 | Outpatient (BNV) | payer OTHER, SELFPAY | PROVIDERS: PCP Internal Medicine; Visit Provider Radiology Diagnostic Radiology | DX: I25.10 Atherosclerotic heart disease of native coronary artery without angina pectoris (principal); R91.1 Solitary pulmonary nodule | CPT/HCPCS: 71250 ==

== ENCOUNTER 2025-03-15 09:38 | Outpatient (AMB) | payer OTHER, SELFPAY ==
[2025-03-15 09:44] VITALS: BP 112/70; PULSE 67; O2SAT 97; BMI 25.4
--- NOTE | 2025-03-15 09:44 | MHC.OFFVIS ---
Vital Signs 03/15/25 09:44 Height 5 ft 7 in Weight 162 lb 0.636 oz BMI 25.4 BP 112/70 Blood Pressure Location Lt brachial Position Sitting Pulse 67 Pulse Source Pulse Oximeter Pulse Oximetry (%) 97 Oxygen Delivery Method Room Air Intake Visit Reasons: COPD Intake Note: pt is here for follow up and he is feeling good, shortness of breath sometimes but comes back easily. 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 Allergies chlorthalidone Adverse Reaction (Severe, Verified 03/15/25 10:06) stomach upset nicotine patch Adverse Reaction (Intermediate, Uncoded 03/15/25 10:06) Redness of Skin Medication List - Last Reconciled 03/15/25 by Roddy Sethi MD albuterol sulfate 90 mcg/actuation 2 puffs inhalation Q4-6H PRN 30 days amlodipine 10 mg PO QPM bisacodyl (Dulcolax (bisacodyl)) 20 mg (4 x 5 mg) PO ONCE 1 day [id number] 12,000-38,000 -60,000 unit (Creon) 3 caps PO QID pantoprazole 40 mg PO DAILY sodium,potassium,mag sulfates 17.5-3.13-1.6 gram (Suprep Bowel Prep Kit) DILUTE; drink 1/2 at 6-8 pm and half at 11 PM- 1AM tiotropium bromide 2.5 mcg/actuation (Spiriva Respimat) 2 puffs inhalation DAILY 30 days Do you need a note to return to daycare/school/sports/work: No HPI HPI COPD: Details: This 59 years old gentleman is here for his routine follow-up for COPD. He still smoking half pack of cigarettes a day He has his usual intermittent cough which is mostly nonproductive. He does get short of breath when he walks up hill or does any hard physical work, but is not any worse than before. [facility] Medical History Pneumonitis Nicotine dependence, cigarettes, uncomplicated Acute pancreatitis GERD (gastroesophageal reflux disease) Epidermal cyst of face Tubular adenoma of colon (~2020) Alcoholism LFT elevation Hypertension, essential Serum calcium elevated Hemochromatosis Polycythemia COPD (chronic obstructive pulmonary disease) Surgical History History of umbilical hernia repair History of left inguinal hernia repair History of right hip replacement History of colonoscopy History of hydrocelectomy History of esophagogastroduodenoscopy (EGD) Family History Father Stroke Mother CVD (cardiovascular disease) Paternal Aunt Smoker Cancer Son Asthma Social History Household Members: Family and Children Housing: House Are you a primary healthcare risk control consultant to a significant other at home: No Do you presently have visiting nurse or other home services: No Unable to assess alcohol history related to: Refusing to respond Alcohol intake: current Alcohol intake frequency: 3 or more drinks per day Alcohol type: beer Patient Tobacco Use Status: Current everyday Tobacco user Tobacco use type: Cigarette Cigarette Packs Per Day: 1.5 Cigarettes Per Day: 30 Years Smoked: 40 e-Cigarette/Vaping Use: Never Used Substance Use Type: Marijuana service: No Current occupational status: employed 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 Cognitive needs: No Hearing needs: No Vision needs: Yes Review of Systems Const All systems reviewed & are unremarkable except as noted in HPI and below Eyes Reports no additional complaints ENT Reports no additional complaints Card Denies chest pain, Denies irregular heart rhythm and Denies leg edema Resp Reports as per HPI GI Reports no additional complaints Reports no additional complaints Musc Reports back pain (Mild at nights) Skin/Breast Reports system reviewed and no additional complaints, except as documented Neuro Reports no additional complaints Psych Reports no additional complaints Physical Exam Vital Signs: Last Vital Signs Pulse 67 03/15/25 09:44 BP 112/70 03/15/25 09:44 Pulse Ox 97 03/15/25 09:44 Oxygen Delivery Method Room Air 03/15/25 09:44 BMI result Body Mass Index 25.4 Const General: comfortable, no acute distress, alert and awake Orientation/consciousness: patient oriented x3 HEENT Head: Yes normal to inspection General nose exam: No nasal polyps present and No nasal discharge present Face and sinus: Yes sinuses nontender Mouth: oropharynx normal Throat: Yes posterior oropharynx normal Eyes General: appearance normal, both eyes and all related structures Neck Neck: Yes normal visual inspection, Yes no lymphadenopathy, Yes trachea midline and Yes no JVD Thyroid: Thyroid normal Chest Chest palpation & inspection: normal inspection of the chest, normal palpation of entire chest wall and no tenderness Resp Other: Percussion note is resonant, breath sounds are slightly distant with prolonged expiratory phase. No wheezes rhonchi or crepitations are heard today. The breath sounds over the left base are somewhat coarse. Cardio Palpation: normal PMI Rate: regular rate Rhythm: regular rhythm Heart sounds: no gallops and no murmurs Peripheral pulses: Peripheral pulses 2+ throughout GI Palpation (GI): Soft to palpation, nontender, No hepatosplenomegaly present and no masses Auscultation: normal bowel sounds Back/Spine/Pelvis Thoracic/Lumbar Spine: thoracic and lumbar spine normal to inspection Skin General skin exam: no rashes or lesions noted Lesions: lesion noted (A grape sized cyst over left cheek) Neuro General: patient oriented x3 and no focal motor deficits Cranial nerves: Yes CN's II-XII intact bilaterally Extrem General: Yes normal to inspection, Yes no clubbing, cyanosis or edema and Yes no calf tenderness Psych Appearance: grossly normal Speech and movement: Normal speech and movement present Results Reviewed Results Reviewed: 01/26/[address] . 1. Resolved of the left lower lobe pneumonia. 2. Coronary artery disease. 3. Stable right costophrenic angle nodule. LungRADS 2 - Benign Appearance: Continue annual screening with low dose Chest CT in 12 months. ##L2# Assessment & Plan Assessment & Plan (1) COPD (chronic obstructive pulmonary disease): Comment: He has mild to moderate degree of obstructive airway disorder, It is remaining relatively stable. Intermittent cough is mainly related to smoking, His shortness of breath and cough are slightly increased since he has been out of Spiriva. Code(s): J44.9 - Chronic obstructive pulmonary disease, unspecified Category: Medical Qualifiers: COPD type: emphysema Emphysema type: panlobular Qualified Code(s): J43.1 - Panlobular emphysema Plan: Continue Spiriva Respimat 2.5 mg 2 inhalations daily And ProAir 2 puffs. Q 4-6 hours p.r.n. (2) Nicotine dependence, cigarettes, uncomplicated: Comment: (current smoker - onset 16yo, 1.5ppd x 42yrs, 50+pyh) still smoking 1 and half pack a day, He is fully aware of the fact that he needs to quit smoking., has tried everything but he just can not quit completely currently Currently smoking half pack of cigarettes a day Code(s): F17.210 - Nicotine dependence, cigarettes, uncomplicated Category: Medical Plan: Again talked to him about quitting completely. Try to keep on cutting the number of cigarettes as much as possible. Stay in annual lung screening program. Coding Level of Care Code Est Pt Level 3 (11894) Diagnoses Panlobular emphysema J43.1 COPD type: emphysema Emphysema type: panlobular Nicotine dependence, cigarettes, uncomplicated F17.210
== END 2025-03-15 10:06 | disposition home or self-care (01) ==
LOC: HO.HPS 09:39
PROVIDERS: PCP Internal Medicine; Visit Provider Internal Medicine
DX: J43.1 Panlobular emphysema (principal); F17.210 Nicotine dependence, cigarettes, uncomplicated
CPT/HCPCS: 99213

== ENCOUNTER → 2025-03-15 09:38 | Outpatient (BNVA) | payer OTHER, SELFPAY | PROVIDERS: PCP Internal Medicine; Visit Provider Internal Medicine ==

== ENCOUNTER 2025-07-17 14:46 | Outpatient (AMB) | payer OTHER, SELFPAY ==
--- NOTE | 2025-07-17 14:53 | MHC.OFFVIS ---
Vital Signs 07/17/25 14:55 Height 5 ft 7 in Weight 156 lb 8.451 oz BMI 24.5 BP 124/80 Blood Pressure Location Lt brachial Position Sitting Pulse 65 Intake Visit Reasons: 6m Intake Note: Lyndon presents in the office as a 6 month follow up. CC: Wants to know if he should be taking Creon - he never had it filled. Was given to him last year at the ED. 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 Allergies chlorthalidone Adverse Reaction (Severe, Verified 07/17/25 14:56) stomach upset nicotine patch Adverse Reaction (Intermediate, Uncoded 07/17/25 14:56) Redness of Skin HPI HPI 6m: Details: 59-year-old male with underlying history of COPD, erythrocytosis, active tobacco use disorder, hypertension and alcoholic pancreatitis (last admitted 2 years ago 10/21/2021) who I am seeing for f/u RECAP: seen for i/p assessment for pancreatitis and splenic vein occlusion 09/2023 Patient had noted few days of severe non radiating epigastric pain 8/10 in severity without any relieving factors but worse with food. He admitted to drinking 6 pack of beer daily for years. He has had similar pain due to pancreatitis in the past but says this is not as bad. He also noted nausea, and non bloody vomiting. Labs: mild raised lipase, nml HGB CT: severe pancreatitis with peripancreatic edema, multiple pancreatic cysts and splenic vein occlusion He was at [facility] and had splenic anuerysm, treated by IR embolization INTERIM: still drinking beer daily 6 pack, occ hard liquor no further admissions for pancreatitis no abdominal pain no nausea or vomiting appetite is good no melena he has occ rectal bleeding EXAM: GENERAL: The patient is dishevelled VITAL SIGNS:see workflow HEENT: Nonicteric sclerae, PERRLA, EOMI. Oropharynx clear. Moist mucous membranes. Conjunctivae appear well perfused. No thyroid mass. CHEST: Chest wall is nontender. HEART: Regular rate and rhythm without murmurs. LUNGS: Clear to auscultation bilaterally. ABDOMEN: Soft, positive bowel sounds, non tender epigastrium, no organomegaly.no flank tenderness- SKIN: No rash, no excessive bruising, petechiae, or purpura. NEUROLOGIC: Cranial nerves II-XII intact without motor/sensory deficit. A/P: 1/ Severe alcoholic pancreatitis, stable, still drinking complicated by splenic aneurysm s/p embolization, panc cysts 2/ alcohol abuse, ongoing drinking and smoking 3/ needs colonoscopy --hx of colon polyps, rectal bleeding PLAN: 1/ cont ppi 2/ repeat colonoscopy now given rectal lbeding and hx of polyps --sent suprep 3/ advised on alcohol and lifestyle changes [facility] Medical History Acute alcoholic pancreatitis Pneumonitis Nicotine dependence, cigarettes, uncomplicated Acute pancreatitis GERD (gastroesophageal reflux disease) Epidermal cyst of face Tubular adenoma of colon (~2020) Alcoholism LFT elevation Hypertension, essential Serum calcium elevated Hemochromatosis Polycythemia COPD (chronic obstructive pulmonary disease) Surgical History History of umbilical hernia repair History of left inguinal hernia repair History of right hip replacement History of colonoscopy History of hydrocelectomy History of esophagogastroduodenoscopy (EGD) Family History Father Stroke Mother CVD (cardiovascular disease) Paternal Aunt Smoker Cancer Son Asthma Social History Household Members: Family and Children Housing: House Are you a primary rn homecare to a significant other at home: No Do you presently have visiting nurse or other home services: No Alcohol intake: current Alcohol intake frequency: 3 or more drinks per day Alcohol type: beer Patient Tobacco Use Status: Current everyday Tobacco user Tobacco use type: Cigarette Cigarette Packs Per Day: 1.5 Cigarettes Per Day: 30 Years Smoked: 40 e-Cigarette/Vaping Use: Never Used Substance Use Type: Marijuana service: No Current occupational status: employed 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 Cognitive needs: No Hearing needs: No Vision needs: Yes Physical Exam Vital Signs: Last Vital Signs Pulse 65 07/17/25 14:55 BP 124/80 07/17/25 14:55 BMI result Body Mass Index 24.5 Assessment & Plan Assessment & Plan (1) Colon polyposis: Code(s): K63.5 - Polyp of colon Category: Medical Plan: as above Orders: Referrals GI Procedure Notification K63.5 - Polyp of colon Medications: New sodium,potassium,mag sulfates 17.5-3.13-1.6 gram (Suprep Bowel Prep Kit) DILUTE; drink 1/2 at 6-8 pm and half at 11 PM- 1AM 354 mL 0RF Refilled [id number] 12,000-38,000 -60,000 unit (Creon) administer with meals and/or snacks 3 caps PO QID 360 caps 1RF pantoprazole 40 mg PO DAILY 90 tabs 1RF Coding Level of Care Code Est Pt Level 3 (03595) Diagnoses Colon polyposis K63.5
[2025-07-17 14:55] VITALS: BP 124/80; PULSE 65; BMI 24.5
== END 2025-07-17 15:15 | disposition home or self-care (01) ==
LOC: HO.HGI 14:46
PROVIDERS: PCP Internal Medicine; Visit Provider Internal Medicine Gastroenterology
DX: K63.5 Polyp of colon (principal)
CPT/HCPCS: 99213

== ENCOUNTER 2025-07-19 11:52 | Outpatient (AMB) | payer OTHER, SELFPAY ==
[2025-07-19 11:56] VITALS: BP 118/70; PULSE 71; O2SAT 99; BMI 24.3
--- NOTE | 2025-07-19 11:56 | MHC.PC.OV ---
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: No Accompanied by: Self / Same As Patient Allergies chlorthalidone Adverse Reaction (Severe, Verified 07/19/25 11:56) stomach upset nicotine patch Adverse Reaction (Intermediate, Uncoded 07/17/25 14:56) Redness of Skin Medication List - Last Reconciled 07/19/25 by James Eden MD albuterol sulfate 90 mcg/actuation 2 puffs inhalation Q4-6H PRN 30 days apxxju-yojiznce-rcdcste 12,000-38,000 -60,000 unit (Creon) 3 caps PO QID pantoprazole 40 mg PO DAILY tiotropium bromide 2.5 mcg/actuation (Spiriva Respimat) 2 puffs inhalation DAILY 30 days Tobacco use date assessed: 07/19/25 Dental Screening Dental Screen Date: 07/19/25 Did you have a dental visit in the last 12 months?: No Did you have a dental problem in the last 6 months where you did not have access to dental care?: No Was dental information given to patient?: No HPI PE HPI Details History of Present Illness The patient is a 59-year-old male presenting for a physical examination and blood test. Essential Hypertension: - Well-controlled with a prior use of Amlodipine 10 mg. Medication has been decided since his blood pressure started to be low Chronic Obstructive Pulmonary Disease: - The patient is established with a clinical rehabilitation specialist. - He takes Spriva and Albuterol as management. Gastroesophageal Reflux Disease, along with alcoholic liver disease - Managed under Dr. Velásquez. - Taking Pantoprazole for treatment. Vitamin D Deficiency: - Identified deficiency in the past. - The patient was advised to take supplements but has not been consistently taking them. History of Smoking: - Currently smokes a pack to a pack and a half per day. - do not want to stop Alcohol Consumption: - Patient consumes beer currently. Medical History: - tobacco dependence - Chronic Obstructive Pulmonary Disease (COPD) - Gastroesophageal Reflux Disease - Vitamin D Deficiency - alcoholism Social History: - Smoking: Currently smokes one to one and a half packs per day. - Alcohol: Regular beer consumption. - Marital Status: and living with . - The works night shifts. Patient Instructions - Go for blood tests today; fasting is not required. - Continue important screenings, including future colonoscopy. - Take Vitamin D supplements as previously advised. - consider cutting down on smoking - consider cutting down on alcohol drinking Review of Systems - General: No fever no chills - Neurological: No headaches no dizziness - Ear nose throat: No sore throat no hearing difficulty no ear pain - Cardiovascular: No syncope, no chest pain, no palpitations - Gastrointestinal: No nausea vomiting or diarrhea - Endocrine: No polyuria polydipsia no heat intolerance - Genitourinary: No dysuria - Skin: No new complaints Physical Exam General: Cooperative, healthy appearing, comfortable, no acute distress Orientation: Patient oriented x3 Head: Normal to inspection Ears: Within normal limit visually Nose: Normal external nose present Face and sinus: Normal facial exam Eyes: Appearance normal, extraocular movement intact pupils reactive Neck: Normal visual inspection and supple Respiratory: Normal respiratory effort and able to speak in complete sentences. Clear to auscultation, no stridor Cardiovascular: S1 and S2 RRR GI: Normal to inspection. Soft to palpation and nontender Skin: Turgor normal, no acute findings Neuro: Patient oriented x3, motor sensory intact, balance intact, tandem failed Extremities: Normal to inspection Patient was informed and verbally consented to the use of an ambient scribe for clinic note documentation during this visit. [facility] Medical History Acute alcoholic pancreatitis Pneumonitis Nicotine dependence, cigarettes, uncomplicated Acute pancreatitis GERD (gastroesophageal reflux disease) Epidermal cyst of face Tubular adenoma of colon (~2020) Alcoholism LFT elevation Hypertension, essential Serum calcium elevated Hemochromatosis Polycythemia COPD (chronic obstructive pulmonary disease) Surgical History History of umbilical hernia repair History of left inguinal hernia repair History of right hip replacement History of colonoscopy History of hydrocelectomy History of esophagogastroduodenoscopy (EGD) Family History Father Stroke Mother CVD (cardiovascular disease) Paternal Aunt Smoker Cancer Son Asthma Social History Household Members: Family and Children Housing: House Are you a primary ambulatory care coordinator to a significant other at home: No Do you presently have visiting nurse or other home services: No Alcohol intake: current Alcohol intake frequency: 3 or more drinks per day Alcohol type: beer Patient Tobacco Use Status: Current everyday Tobacco user Tobacco use type: Cigarette Cigarette Packs Per Day: 1.5 Cigarettes Per Day: 30 Years Smoked: 40 e-Cigarette/Vaping Use: Never Used Substance Use Type: Marijuana service: No Current occupational status: employed 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 1. Little interest or pleasure in doing things: not at all 2. Feeling down, depressed, or hopeless: not at all 3. Trouble falling or staying asleep, or sleeping too much: not at all 4. Feeling tired or having little energy: not at all 5. Poor appetite or overeating: not at all 6. Feeling bad about yourself - or that you are a failure or have let yourself or your family down: not at all 7. Trouble concentrating on things, such as reading the newspaper or watching television: not at all 8. Moving or speaking so slowly that other people could have noticed. Or the opposite - being so fidgety or restless that you have been moving around a lot more than usual: not at all 9. Thoughts that you would be better off or of hurting yourself in some way: not at all Total score: 0 Depression Screening Interpretation: Negative Depression Screening Done: Yes 43022 - PHQ-9 Billing: Yes Source: Developed by Drs. Efraín Leonard, Becky Cuevas, Maykel Parekh and colleagues, with an educational karen from [employer]. Thrive Questionnaire Date Thrive assessed: 07/19/25 I am a: Patient What is your living situation today?: I have a steady place to live Within the past 12 months, did the food you bought not last and you didn't have the money to get more?: Never true Within the past 12 months, did you worry whether your food would run out before you got money to buy more?: Never true Do you have trouble paying for medicines?: No Do you have trouble getting transportation to medical appointments?: No Do you have trouble paying your heating and electricity bill?: No Do you have trouble taking care of your child, family member or friend?: No Do you have trouble with day-to-day activities such as bathing, preparing meals, shopping, managing finances, etc.?: No Are you currently unemployed and looking for a job?: No Are you interested in more education?: No Please select the resources that you would like help with: None Currently or been in a relationship where the following occur: No concerns reported THRIVE Score: 0 AUDIT C Alcohol Use Questionnaire (AUDIT-C) 1. How often do you have a drink containing alcohol?: 4 or more times a week 2. How many drinks containing alcohol do you have on a typical day when you are drinking?: 5 or 6 3. How often do you have six or more drinks on one occasion?: Daily or almost daily Total Score: 10 Score Reviewed/Action Taken: Yes GENIA-7 AMB Questionnaire GENIA-7 Date GENIA - 7 assessed: 07/19/25 Feeling nervous, anxious, or on edge: 0 = Not at all Not being able to stop or control worryin = Not at all Worrying too much about different things: 0 = Not at all Trouble relaxin = Not at all Being so restless that it is hard to sit still: 0 = Not at all Becoming easily annoyed or irritable: 0 = Not at all Feeling afraid as if something awful might happen: 0 = Not at all Total GENIA-7 score (0-4 normal; 5-9 mild; 10-14 moderate; 15-21 severe): 0 Source: Developed by Drs. Efraín Leonard, Becky Cuevas, Maykel Parekh and colleagues, with an educational karen from [employer]. GENIA-7 Assessment Billing GENIA-7 Assessment Tool: GENIA-7 Assessment 07528 Physical exam (Primary Care) Vital Signs: Last Vital Signs Pulse 71 07/19/25 11:56 BP 118/70 07/19/25 11:56 Pulse Ox 99 07/19/25 11:56 Oxygen Delivery Method Room Air 07/19/25 11:56 BMI result Body Mass Index 24.3 Tobacco/Smoking Status: Tobacco use Status Tobacco use date assessed 07/19/25 07/19/25 12:00 Patient Tobacco Use Status Current everyday Tobacco 07/19/25 12:00 Tobacco use type Cigarette 07/19/25 12:00 e-Cigarette/Vaping Use Never Used 07/19/25 12:00 Are you ready to quit: No Tobacco cessation counseling provided: Yes Relapse Prevention: discussed the importance of a supportive environment and discussed dietary, exercise and/or lifestyle changes CPT code: 69117 - 4-10 Minutes PHQ-9: PHQ-9 Score PHQ-9: Total score 0 07/19/25 12:00 Depression Screening Interpretation: Negative Thrive Assessment: Date of Thrive Assessment Date Thrive assessed 07/19/25 07/19/25 12:00 Currently or been in a relationship where the following occur: No concerns reported Coding Level of Care Code Est Pt Level 4 (87708) Est Pt Prev Care 40-64y(02468) Diagnoses Encounter for general adult medical examination with abnormal findings Z00.01 Alcohol abuse F10.10 LFT elevation R79.89 Hereditary hemochromatosis E83.110 Hemochromatosis type: hereditary Panlobular emphysema J43.1 COPD type: emphysema Emphysema type: panlobular Nicotine dependence, cigarettes, uncomplicated F17.210 Tubular adenoma of colon D12.6 Additional Codes GENIA-7 Assessment Billing - GENIA-7 Assessment Tool: GENIA-7 Assessment 83423 ([id number]) PHQ-9 - 19124 - PHQ-9 Billing: Yes ([id number]) Vital Signs *Quality* - CPT code: 19526 - 4-10 Minutes ([id number]) Assessment & Plan Assessment & Plan (1) Encounter for general adult medical examination with abnormal findings: Code(s): Z00.01 - Encounter for general adult medical examination with abnormal findings Category: Medical (2) Alcohol abuse: Code(s): F10.10 - Alcohol abuse, uncomplicated Category: Social Hx (3) LFT elevation: Code(s): R79.89 - Other specified abnormal findings of blood chemistry Category: Medical (4) Hemochromatosis: Comment: follows /[facility] Hematology-has never had therapeutic phlebotomy despite bring recommended (patient declined)-states blood levels normal now Code(s): E83.119 - Hemochromatosis, unspecified Category: Medical Qualifiers: Hemochromatosis type: hereditary Qualified Code(s): E83.110 - Hereditary hemochromatosis (5) COPD (chronic obstructive pulmonary disease): Comment: He has mild to moderate degree of obstructive airway disorder, It is remaining relatively stable. Intermittent cough is mainly related to smoking, His shortness of breath and cough are slightly increased since he has been out of Spiriva. Code(s): J44.9 - Chronic obstructive pulmonary disease, unspecified Category: Medical Qualifiers: COPD type: emphysema Emphysema type: panlobular Qualified Code(s): J43.1 - Panlobular emphysema (6) Nicotine dependence, cigarettes, uncomplicated: Comment: (current smoker - onset 16yo, 1.5ppd x 42yrs, 50+pyh) still smoking 1 and half pack a day, He is fully aware of the fact that he needs to quit smoking., has tried everything but he just can not quit completely currently Currently smoking half pack of cigarettes a day Code(s): F17.210 - Nicotine dependence, cigarettes, uncomplicated Category: Medical (7) Tubular adenoma of colon: Onset Date: ~2020 Comment: (TA/TVA/HP on 2020 scope) Code(s): D12.6 - Benign neoplasm of colon, unspecified Category: Medical Plan History of Present Illness The patient is a 59-year-old male presenting for a physical examination and blood test. Essential Hypertension: - Well-controlled with a prior use of Amlodipine 10 mg. Medication has been decided since his blood pressure started to be low Chronic Obstructive Pulmonary Disease: - The patient is established with a clinical rehabilitation specialist. - He takes Spriva and Albuterol as management. Gastroesophageal Reflux Disease, along with alcoholic liver disease - Managed under Dr. Velásquez. - Taking Pantoprazole for treatment. Vitamin D Deficiency: - Identified deficiency in the past. - The patient was advised to take supplements but has not been consistently taking them. History of Smoking: - Currently smokes a pack to a pack and a half per day. - do not want to stop Alcohol Consumption: - Patient consumes beer currently. Medical History: - tobacco dependence - Chronic Obstructive Pulmonary Disease (COPD) - Gastroesophageal Reflux Disease - Vitamin D Deficiency - alcoholism - hemochromatosis, has been evaluated by Hematology last year Social History: - Smoking: Currently smokes one to one and a half packs per day. - Alcohol: Regular beer consumption. - Marital Status: and living with . - The works night shifts. Patient Instructions - Go for blood tests today; fasting is not required. - Continue important screenings, including future colonoscopy. - Take Vitamin D supplements as previously advised. - consider cutting down on smoking - consider cutting down on alcohol drinking Orders: Orders Vitamin D 25-OH (D2 and D3) Today E83.110 - Hereditary hemochromatosis, F10.10 - Alcohol abuse, uncomplicated, F17.210 - Nicotine dependence, cigarettes, uncomplicated, I10 - Essential (primary) hypertension, J43.1 - Panlobular emphysema, R79.89 - Other specified abnormal findings of blood chemistry, Z00.01 - Encounter for general adult medical examination with abnormal findings Ferritin Today E83.110 - Hereditary hemochromatosis, F10.10 - Alcohol abuse, uncomplicated, F17.210 - Nicotine dependence, cigarettes, uncomplicated, I10 - Essential (primary) hypertension, J43.1 - Panlobular emphysema, R79.89 - Other specified abnormal findings of blood chemistry, Z00.01 - Encounter for general adult medical examination with abnormal findings Complete Blood Count Auto Diff Today E83.110 - Hereditary hemochromatosis, F10.10 - Alcohol abuse, uncomplicated, F17.210 - Nicotine dependence, cigarettes, uncomplicated, I10 - Essential (primary) hypertension, J43.1 - Panlobular emphysema, R79.89 - Other specified abnormal findings of blood chemistry, Z00.01 - Encounter for general adult medical examination with abnormal findings Comprehensive Met. Panel Today E83.110 - Hereditary hemochromatosis, F10.10 - Alcohol abuse, uncomplicated, F17.210 - Nicotine dependence, cigarettes, uncomplicated, I10 - Essential (primary) hypertension, J43.1 - Panlobular emphysema, R79.89 - Other specified abnormal findings of blood chemistry, Z00.01 - Encounter for general adult medical examination with abnormal findings LDL Cholesterol Direct Today E83.110 - Hereditary hemochromatosis, F10.10 - Alcohol abuse, uncomplicated, F17.210 - Nicotine dependence, cigarettes, uncomplicated, I10 - Essential (primary) hypertension, J43.1 - Panlobular emphysema, R79.89 - Other specified abnormal findings of blood chemistry, Z00.01 - Encounter for general adult medical examination with abnormal findings Vitamin B12 Today E83.110 - Hereditary hemochromatosis, F10.10 - Alcohol abuse, uncomplicated, F17.210 - Nicotine dependence, cigarettes, uncomplicated, I10 - Essential (primary) hypertension, J43.1 - Panlobular emphysema, R79.89 - Other specified abnormal findings of blood chemistry, Z00.01 - Encounter for general adult medical examination with abnormal findings TSH reflex Free T4 Today E83.110 - Hereditary hemochromatosis, F10.10 - Alcohol abuse, uncomplicated, F17.210 - Nicotine dependence, cigarettes, uncomplicated, I10 - Essential (primary) hypertension, J43.1 - Panlobular emphysema, R79.89 - Other specified abnormal findings of blood chemistry, Z00.01 - Encounter for general adult medical examination with abnormal findings Hemoglobin A1c Today E83.110 - Hereditary hemochromatosis, F10.10 - Alcohol abuse, uncomplicated, F17.210 - Nicotine dependence, cigarettes, uncomplicated, I10 - Essential (primary) hypertension, J43.1 - Panlobular emphysema, R79.89 - Other specified abnormal findings of blood chemistry, Z00.01 - Encounter for general adult medical examination with abnormal findings
--- OUTSIDE RECORDS SUMMARY | 2025-07-19 14:51 | XMS_ITS | Data Portability ---
Author Organization JOSE - Dash Burnett [facility], [facility] Address [address] [place] [address] Assessment Encounter Date Assessment Date Assessment LastModified [...] radha [id number], [address], [place], [address], 10:25:16 Patient TargetsNo targets recorded. Patient InstructionsNo instructions recorded. Reason for Referral None Reported. Problems Name Problem SNOMED Code Status Onset Date Resolution Date Notes Provider Name and Address Organization Details Recorded Time No complaints [id number] Active Status : 'A'; Not Available [facility] 09:11:00 Trochanter ic bursitis of right hip [id number] 00 Active 2023 ELVIN MCCARTY [facility] 09:19:51 Problem Notes None recorded. Medical Equipment [...] Updated DateTime 01/21/2024 165.1 cm 28.3 kg/m2 26323.7 g ELVIN MCCARTY [facility] 01/21/2024 09:16:32 Social History None recorded. Functional Status None recorded. Mental Status None recorded. Family History Nothing Reported. Medical History No medical history recorded. Past Encounters Encounter ID Performer Location Encounter Start Date Encounter Closed Date Diagnosis/Indication Diagnosis SNOMED-CT Code Diagnosis ICD10 Code Diagnosis IMO Codes Diagnosis Note [id number] YUDELKA Ann [address] [place] [address] 01/21/2024 09:06:21 01/21/2024 09:27:10 Trochanteric bursitis of right hip [id number] 38986 M70.61 Health Concerns Section Related Observation LastModified by Organization Floyd beltrán LastModified Time None Recorded Concern Status LastModified by Organization Details LastModified Time None Recorded Advance Directives Directive None Recorded Payers Insurance Date Sequence Insurance Name Policy Number Policy Hadley Covered Member ID Hadley Member ID Guarantor Name 02/11/2024 1 [place]: [facility] [id number] Maia Wiley [id number] Lyndon Wiley
== END 2025-07-19 12:09 | disposition home or self-care (01) ==
LOC: HO.HMCC 11:53
PROVIDERS: PCP Internal Medicine; Visit Provider Internal Medicine
DX: Z00.00 Encounter for general adult medical examination without abnormal findings (principal); F10.10 Alcohol abuse, uncomplicated; J43.1 Panlobular emphysema; R79.89 Other specified abnormal findings of blood chemistry; E83.110 Hereditary hemochromatosis; F17.210 Nicotine dependence, cigarettes, uncomplicated; D12.6 Benign neoplasm of colon, unspecified

== ENCOUNTER 2025-07-19 11:52 | Outpatient (REF) | payer OTHER, SELFPAY ==
[2025-07-19 14:00] LABS: MANUAL DIFF FLAG NO
[2025-07-19 14:04] LABS: Hematocrit 43.2 % (42.0-52.0); Hemoglobin 15.3 g/dl (14.0-18.0); Imm Gran Abs Auto 0.04 X10*3/uL (0.00-0.03); Imm Gran Pct Auto 0.5 % (0.0-0.4); Lymphocytes Absolute Auto 1.1 X10*3/uL (1.2-4.9); Mean Corpuscular HGB Conc 35.4 g/dl (31.0-36.0); Mean Corpuscular Hemoglobin 33.7 pg (27.0-33.0); Mean Corpuscular Volume 95.2 fL (80.0-98.0); NRBC Abs Auto 0.000 X10*3/uL (0.0-0.012); NRBC Pct Auto 0.0 /100WBC (0.0-0.2); Platelet Count 267 X10*3/uL (160-400); Red Blood Count 4.54 X10*6/uL (4.60-5.80); White Blood Count 8.2 X10*3/uL (4.8-10.8)
[2025-07-19 14:34] LABS: Alanine Aminotransferase 28 U/L (0-40); Albumin Level 4.1 g/dL (3.5-5.0); Alkaline Phosphatase 128 U/L (39-117); Anion Gap 13 (12-20); Aspartate Amino Transferase 36 U/L (5-37); Blood Urea Nitrogen 7 mg/dL (9-16); Calcium 10.9 mg/dL (8.4-10.2); Carbon Dioxide 24 mmol/L (22-29); Chloride 99 mmol/L (96-108); Estimated Glomerular Filt Rate > 60; Potassium 4.3 mmol/L (3.3-5.1); Sodium 132 mmol/L (135-145); Total Protein 7.4 g/dL (6.5-8.0)
[2025-07-19 14:48] LABS: Ferritin 779 ng/mL (20-250)
[2025-07-19 14:50] LABS: Total Hemoglobin (HGBA1C) 3920.2878 umol/L
[2025-07-19 15:18] LABS: Vitamin B12 360 pg/mL (200-900)
[2025-07-24 17:18] LABS: Vitamin D 25-OH, D2 <4 ng/mL; Vitamin D 25-OH, D3 9 ng/mL; Vitamin D 25-OH, Total 9 ng/mL (30-100)
== END 2025-07-19 11:53 | disposition home or self-care (01) ==
LOC: HO.HMGCLDS 11:52
PROVIDERS: PCP Internal Medicine; Visit Provider Internal Medicine
DX: Z00.01 Encounter for general adult medical examination with abnormal findings (principal); F10.10 Alcohol abuse, uncomplicated; I10 Essential (primary) hypertension; R79.89 Other specified abnormal findings of blood chemistry; E83.110 Hereditary hemochromatosis; J43.1 Panlobular emphysema; D12.6 Benign neoplasm of colon, unspecified; F17.210 Nicotine dependence, cigarettes, uncomplicated; Z79.899 Other long term (current) drug therapy
CPT/HCPCS: 36415; 80053; 82306; 82607; 82728; 83036; 83721; 84443; 85025; 96127

== ENCOUNTER 2025-08-17 08:40 | Day surgery (SDC) | payer OTHER, SELFPAY ==
[2025-08-15 14:16] VITALS: BMI 24.4
[2025-08-17 09:09] VITALS: BMI 25.1
[2025-08-17] MEDS: Lactated Ringers 1,000 ML 100 ML IVCONT (09:20)
[2025-08-17 09:22] VITALS: BP 123/71; PULSE 61; RESP 18; TEMP 36.7; O2SAT 95
--- NOTE | 2025-08-17 09:22 | HO.ANESPROP2 ---
Documented by User: Praveena De Guzman NP 08/15/25 10:23 HPI - Anesthesia Eval Consult details Narrative: 59 yr old male for colonoscopy Chronic alcoholic pancreatitis COPD: follows with [facility] pulmo, last visit 02/2025, fairly stable, notes indicate: He has mild to moderate degree of obstructive airway disorder, It is remaining relatively stable. Intermittent cough is mainly related to smoking, His shortness of breath and cough are slightly increased since he has been out of [employer]. Smokes 1.5 pks cigarettes daily [facility] Active Problems Active Problems: All Active Problems Pneumonitis (Acute) Splenic artery aneurysm (Acute) Hypoalbuminemia (Acute) Uncontrolled hypertension (Acute) Splenic vein thrombosis (Acute) Hyponatremia (Acute) Facial abscess (Acute) Pain, joint, hip, right (Acute) Alcohol abuse (Acute) Nicotine dependence, cigarettes, uncomplicated (Acute) Hypomagnesemia (Acute) Laceration of right ring finger (Acute) Colon polyposis (Acute) Epidermal cyst of face (Acute) Hypertension, essential (Acute) COPD (chronic obstructive pulmonary disease) (Acute) Polycythemia (Acute) Hemochromatosis (Acute) Tubular adenoma of colon (Acute ~2020) LFT elevation (Acute) Serum calcium elevated (Acute) Past Medical History Medical History Acute alcoholic pancreatitis Pneumonitis Nicotine dependence, cigarettes, uncomplicated Acute pancreatitis GERD (gastroesophageal reflux disease) Epidermal cyst of face Tubular adenoma of colon (~2020) Alcoholism LFT elevation Hypertension, essential Serum calcium elevated Hemochromatosis Polycythemia COPD (chronic obstructive pulmonary disease) Family History Family History Father Stroke Mother CVD (cardiovascular disease) Paternal Aunt Smoker Cancer Son Asthma Family history of problems with anesthesia: No Surgical History Surgical History History of umbilical hernia repair History of left inguinal hernia repair History of right hip replacement History of colonoscopy History of hydrocelectomy History of esophagogastroduodenoscopy (EGD) History of Problems with Anesthesia: No Social History Social History Household Members: Family and Children Housing: House Are you a primary health care liaison to a significant other at home: No Do you presently have visiting nurse or other home services: No Alcohol intake: current Alcohol intake frequency: 3 or more drinks per day Alcohol type: beer Patient Tobacco Use Status: Current everyday Tobacco user Tobacco use type: Cigarette Cigarette Packs Per Day: 1.5 Cigarettes Per Day: 30 Years Smoked: 40 Smoked in Last 30 Days: Yes e-Cigarette/Vaping Use: Never Used Patient Interested in Nicotine Replacement: No Substance Use Type: Marijuana Have you been hit, kicked, punched, or otherwise hurt by someone within the past year? 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 Cognitive needs: No Hearing needs: No Vision needs: Yes Meds Allergies Allergy/AdvReac Type Severity Reaction Status Date / Time chlorthalidone AdvReac Severe stomach Verified 08/17/25 09:21 upset nicotine patch AdvReac Intermediate Redness of Uncoded 08/17/25 09:21 Skin Assessment and Plan Final Anesthetic Review Family History of Problems with Anesthesia: No History of Problems with Anesthesia: No Documented by User: Argenis Olvera DO 08/17/25 09:23 [facility] Past Medical History Medical History Acute alcoholic pancreatitis Pneumonitis Nicotine dependence, cigarettes, uncomplicated Acute pancreatitis GERD (gastroesophageal reflux disease) Epidermal cyst of face Tubular adenoma of colon (~2020) Alcoholism LFT elevation Hypertension, essential Serum calcium elevated Hemochromatosis Polycythemia COPD (chronic obstructive pulmonary disease) Family History Family History Father Stroke Mother CVD (cardiovascular disease) Paternal Aunt Smoker Cancer Son Asthma Family history of problems with anesthesia: No Surgical History Surgical History History of umbilical hernia repair History of left inguinal hernia repair History of right hip replacement History of colonoscopy History of hydrocelectomy History of esophagogastroduodenoscopy (EGD) History of Problems with Anesthesia: No Social History Social History Household Members: Family and Children Housing: House Are you a primary health care liaison to a significant other at home: No Do you presently have visiting nurse or other home services: No Alcohol intake: current Alcohol intake frequency: 3 or more drinks per day Alcohol type: beer Patient Tobacco Use Status: Current everyday Tobacco user Tobacco use type: Cigarette Cigarette Packs Per Day: 1.5 Cigarettes Per Day: 30 Years Smoked: 40 Smoked in Last 30 Days: Yes e-Cigarette/Vaping Use: Never Used Patient Interested in Nicotine Replacement: No Substance Use Type: Marijuana Have you been hit, kicked, punched, or otherwise hurt by someone within the past year? 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 Cognitive needs: No Hearing needs: No Vision needs: Yes Meds Allergies Allergy/AdvReac Type Severity Reaction Status Date / Time chlorthalidone AdvReac Severe stomach Verified 08/17/25 09:21 upset nicotine patch AdvReac Intermediate Redness of Uncoded 08/17/25 09:21 Skin Exam Exam Date and Time: 08/17/25921 Height,Weight and Vital Signs: Height 5 ft 7 in Weight 72.7 kg Airway Mallampati Class: II TM Dist: >3cm Neck ROM: Full Loose/Missing/Broken Teeth: Yes (edentulous) Heart: S1S2 Lungs: CTAB Assessment and Plan Assessment Anesthesia Assessment: Anesthesia Plan Discussed and Chart Reviewed Final Anesthetic Review Family History of Problems with Anesthesia: No History of Problems with Anesthesia: No NPO: Yes ASA Class: III Final Preanesthetic Review: No Changes in Pt Med Stat, Meds/Allgs Chart Reviewed, Consent Obtained/Reviewed and Anes Risks/Benef Reviewed Patient Risk: Intermediate Procedure Risk: Low Anesthetic Plan Anesthetic Plan: MAC: and Agree w/ Assess. and Plan Disposition: Standard PACU
--- NOTE | 2025-08-17 09:37 | MHC.SHP ---
Pre-Procedural Eval Section A - 24 Hr Update-Section A only Date of Service: 08/17/25 Section B - Complete if H&P > 30 days Chief Complaint: Polyp of colon Relevant Family History (Specify if Yes): No Relevant Social History: Tobacco Use (alcohol as well ) Present Medications: see Short Stay Collaborative assessment Medical History: Significant History (Acute alcoholic pancreatitis Pneumonitis Nicotine dependence, cigarettes, uncomplicated Acute pancreatitis GERD (gastroesophageal reflux disease) Epidermal cyst of face Tubular adenoma of colon (~2020) Alcoholism LFT elevation Hypertension, essential Serum calcium elevated Hemochromatosis Polycythem) History of Previous Operations: Relevant previous surgery/procedure and date(s) (History of umbilical hernia repair History of left inguinal hernia repair History of right hip replacement History of colonoscopy History of hydrocelectomy History of esophagogastroduodenoscopy (EGD)) Allergies: Allergies Allergy/AdvReac Type Severity Reaction Status Date / Time chlorthalidone AdvReac Severe stomach Verified 08/17/25 09:21 upset nicotine patch AdvReac Intermediate Redness of Uncoded 08/17/25 09:21 Skin Review of Systems Sugical H&P ROS: Negative: Constitution, Cardiovascular, Respiratory, Neurological, Psychiatric, Hem-Onc, Allergic/Immunologic, Gastrointestinal, Genitourinary, Musculoskeletal, Integumentary, Endocrine and Eyes/Ears/Nose/Throat Exam Surgical H&P Exam: Normal: HEENT, Normal: Heart, Normal: Lungs, Normal: Extremities, Normal: Abdomen, Normal: Skin and Normal: Neurological Plan Diagnosis/Plan: Unchanged I have reviewed the history and physical and performed a pertinent physical examination on my patient. No changes have occurred unless specified. Time Spent With Patient Time: Total time managing care of this patient today ____ minutes.
--- NOTE | 2025-08-17 10:32 | HO.OPN-COLON ---
Colonoscopy Operative Note Operative Note Date of Service: 08/17/25 Narrative: Operative Information Procedure Description: Colonoscopy Indication: screening Anesthesia: MAC COLONOSCOPY Instrument: Olympus variable stiffness pediatric scope 190L Colonoscopy Monitoring: Vital signs and clinical assessment, continuous EKG monitoring, Pulse oximetry, Carbon Dioxide monitoring and blood pressure monitoring were done throughout the procedure. Colon withdrawal time was 12 minutes. Procedure: The patient was placed in the left lateral decubitis position and pre-procedure medications were administered. After a digital rectal examination of the ano-rectum, the video colonoscope was inserted into the rectum and advanced through the colon to the cecum/TI. The colonoscope was slowly withdrawn in a retrograde panoramic fashion and the colon mucosa was carefully examined including a retroflexed view of the rectum. Findings and interventions are described below. Procedure Difficulty: easy Findings: Terminal Ileum-normal Cecum:normal Ascending Colon: normal Transverse Colon -normal Descending Colon: x 2 sessile polyps 7-9 mm removed with cold snare Sigmoid Colon: midl diverticulosis Rectum: Retroflexion with small internal hemorrhoids seen, grade I Anorectum - normal Intervention: cold snare Colon preparation: [place] Bowel Preparation Scale Right colon; 2 Transverse colon: 2 Left colon; 2 (0 = Unprepared colon segment with mucosa not seen due to solid stool that cannot be cleared. 1 = Portion of mucosa of the colon segment seen, but other areas of the colon segment not well seen due to staining, residual stool and/or opaque liquid. 2 = Minor amount of residual staining, small fragments of stool and/or opaque liquid, but mucosa of colon segment seen well. 3 = Entire mucosa of colon segment seen well with no residual staining, small fragments of stool or opaque liquid) Impression and Post Procedure Diagnosis: diverticulosis colon polyps internal hemorrhoids Plan: High fiber diet leaflet Avoid straining at stool, epsom salts and sitz bath, anusol supps or cream Repeat Colonoscopy in 3-4 years due to hx of polyps or earlier if clinically indicated Above findings were reviewed with the patient and relevant handouts were provided if indicated.
[2025-08-17 10:36] VITALS: BP 108/72; PULSE 82; RESP 18; TEMP 36.1; O2SAT 97
[2025-08-17 10:48] VITALS: BP 107/69; PULSE 63; RESP 18; TEMP 36.1; O2SAT 96
== END 2025-08-17 11:38 | disposition home or self-care (01) ==
PROVIDERS: PCP Internal Medicine; Visit Provider Internal Medicine Gastroenterology
PROC: 0DJD8ZZ Inspection of Lower Intestinal Tract, Via Natural or Artificial Opening Endoscopic (ICD-10-PCS; CPT 45378; principal; 2025-08-17 11:30)
DX: Z12.11 Encounter for screening for malignant neoplasm of colon (principal); K63.5 Polyp of colon; Z86.0101 Personal history of adenomatous and serrated colon polyps; K64.0 First degree hemorrhoids; K57.30 Diverticulosis of large intestine without perforation or abscess without bleeding; D12.4 Benign neoplasm of descending colon
CPT/HCPCS: 45385; 88305; J2003; J2704

== ENCOUNTER → 2025-08-17 08:40 | Outpatient (BNV) | payer OTHER, SELFPAY | PROVIDERS: PCP Internal Medicine; Visit Provider Internal Medicine Gastroenterology | DX: Z12.11 Encounter for screening for malignant neoplasm of colon (principal); K63.5 Polyp of colon; K57.30 Diverticulosis of large intestine without perforation or abscess without bleeding; K64.0 First degree hemorrhoids | CPT/HCPCS: 45385 ==